=== PATIENT | male | born 1975 | race Caucasian/White ===

== ENCOUNTER 2024-01-22 14:46 | Emergency (ER) | payer MEDICAID, SELFPAY ==
[2024-01-22] VITALS (11 sets, daily range): BP systolic 105–120; BP diastolic 63–79; PULSE 54–66; TEMP 36.8; O2SAT 96–100; BMI 29.7
--- NOTE | 2024-01-22 14:58 | XR_ITS ---
The [address] [address] Patient Name: RICK MCBRIDE MRN: [id number] date: 1975 Sex: M Assigned Patient Location: ER Current Patient Location: ER Accession/Order Number: [id number] Exam Date: 01/22/2024 15:32 Report Date: 01/22/2024 15:54 At the request of: ERICA DA SILVA Procedure: XR chest 1V EXAM: XR chest 1V HISTORY: syncope COMPARISON: None TECHNIQUE: AP view of the chest was obtained with portable technique at 3:28 PM. FINDINGS: Heart and mediastinal contours are unremarkable in appearance. No acute infiltrate or consolidations are seen. No obvious pneumothorax. Mild blunting of the left costophrenic angle compatible with mild pleural thickening and/or small effusion. XR/XR chest 1V IMPRESSION: Mild pleural thickening and/or small pleural effusion on the left inferiorly. No obvious focal infiltrate or consolidation. Electronically authenticated by: PROSPER ROCHA Date: 01/22/2024 15:54
--- NOTE | 2024-01-22 14:58 | ECG_ITS ---
The [facility] Test Date: 2024-01-22 Pat Name: RICK MCBRIDE Department: Room: - Gender: Male [employer] In[employer]: : 1975 Requested By: [id number] Order Number: [id number] Reading MD: FREDDY RUTHERFORD Measurements Intervals Vale Rate: 57 P: 57 VT: 140 QRS: 64 QRSD: 96 T: 43 QT: 416 QTc: 409 Interpretive Statements 1100 Sinus bradycardia 9110 normal ECG No previous ECG available for comparison Electronically Signed On 01-24-2024 10:45:16 EDT by FREDDY RUTHERFORD
[2024-01-22] MEDS: ONDANSETRON 4 MG RAPDIS TABLET SL (15:15)
[2024-01-22] MEDS: 0.9 % SODIUM CHLORIDE 1,000 ML 1000 ML IV ×2 (15:16→16:18)
--- NOTE | 2024-01-22 15:17 | ED.GENADUL1 ---
HPI HPI - General Adult General Chief complaint: Seizure Time Seen by Provider: 01/22/24 14:54 Source: patient Mode of arrival: ambulance History of Present Illness HPI narrative: 48-year-old male presents here by squad. Patient states he was sitting around a table and smoking marijuana with other friends. He stood up became lightheaded and had to sit down. He denies any loss of consciousness. Witnesses stated that he had had a seizure-like activity. Patient denies any loss of bowel or bladder function. He has had no postictal event. Patient is alert and oriented. He states now he has a mild headache. He is alert and oriented. He states he does have a history of vertigo. Denies worst headache of his life sudden onset or thunderclap sensation. His vital signs are stable. Related Data Allergies Allergy/AdvReac Type Severity Reaction Status Date / Time Iodinated Contrast Media Allergy Severe Verified 01/22/24 14:51 Opioid HPI Opioid Management Most Recent Opioid Data: Ur Phencyclidine Scrn Negative (NEGATIVE) 01/22/24 17:05 Review of Systems ROS Narrative All Systems are negative except as noted/marked.All systems reviewed and otherwise negative Exam Narrative Exam Narrative: Nurses note and vital signs reviewed and patient is not hypoxic. General: The patient appears well and in no apparent distress. Patient is resting comfortably on cart. Skin: Warm, dry, no pallor noted. There is no rash noted. Head: Normocephalic, atraumatic Eye: Normal conjunctiva, no drainage, EOMI. PERRL Ears, Nose, Mouth, and Throat: oral mucosa is moist. Nares patent. Mouth without vesicles. Ear canals patent. Tm's without Erythema Cardiovascular: Regular Rate and Rhythm Respiratory: Patient is in no distress, no accessory muscle use, lungs are clear to auscultation, no wheezing, rales or rhonchi Back: non-tender, no CVA tenderness bilaterally to percussion. GI: Normal bowel sounds, no tenderness to palpation, no masses appreciated. No rebound, guarding, or rigidity noted. Musculoskeletal: The patient has no evidence of calf tenderness, no pitting edema, symmetrical pulses noted bilaterally Neurological: A&O x4, normal speech Psychiatric: Cooperative Constitutional Vital Signs, click to edit/add: Last Vital Signs Temp 98.2 F 05/03/24 14:46 Pulse 54 L 01/22/24 17:30 Resp 16 01/22/24 17:30 BP 108/78 01/22/24 16:30 Pulse Ox 99 01/22/24 17:30 O2 Del Method Room Air 01/22/24 15:17 Course Vital Signs Vital signs: Vital Signs Temperature 98.2 F 01/22/24 14:46 Pulse Rate 61 01/22/24 14:46 Respiratory Rate 16 01/22/24 14:46 Blood Pressure 116/75 01/22/24 14:46 Pulse Oximetry 99 01/22/24 14:46 Oxygen Delivery Method Room Air 01/22/24 14:46 Temperature 98.2 F 01/22/24 14:46 Pulse Rate 54 L 01/22/24 17:30 Respiratory Rate 16 01/22/24 17:30 Blood Pressure 108/78 01/22/24 16:30 Pulse Oximetry 99 01/22/24 17:30 Oxygen Delivery Method Room Air 01/22/24 15:17 Medical Decision Making MDM Narrative Medical decision making narrative: Patient had presented here by jackelin with a chief complaint of possible seizure-like activity. Upon arrival to the emergency room IV was established. CBC BMP and urinalysis were obtained. Lab work is reviewed patient has a low sodium of 119. He denies a known history of hyponatremia. He takes no medications on a daily basis. He states he smokes marijuana daily. 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 He is here visiting with family and friends. No seizure-like activity here in the emergency room. He had a mild headache given Tylenol. Patient is been given 2 L of IV fluids. He is requesting to be signed out AGAINST MEDICAL ADVICE. Myself as well as supervising physician Dr. Kyle explained to him the dangers of signing out including . Patient verbalizes understanding. Differential Diagnosis Differential Diagnosis: syncopal Event, dizziness, vertigo Medical Records Medical records reviewed: Yes I reviewed the patient's medical records Lab Data Lab results reviewed: Yes I reviewed the patient's lab results Labs: Lab Results 01/22/24 01/22/24 Range/Units 15:38 17:05 WBC 7.2 (4.0-11.0) 10^3/uL RBC 4.16 L (4.70-6.10) 10^6/uL Hgb 12.4 L (14.0-18.0) g/dL Hct 37.6 L (42.0-54.0) % MCV 90.4 (80.0-94.0) fL MCH 29.8 (25.9-34.0) pg MCHC 33.0 (29.9-35.2) g/dL RDW 11.8 (11.0-15.0) % Plt Count 171 (150-450) 10^3/uL MPV 10.1 (9.5-13.5) fL Neut % (Auto) 74.5 (43.0-75.0) % Lymph % (Auto) 17.0 L (20.5-60.0) % [place] % (Auto) 6.1 (1.7-12.0) % Eos % (Auto) 1.4 (0.9-7.0) % Baso % (Auto) 0.7 (0.2-2.0) % Neut # (Auto) 5.3 (1.4-6.5) 10^3/uL Lymph # (Auto) 1.2 (1.2-3.8) 10^3/uL [place] # (Auto) 0.4 (0.3-0.8) 10^3/uL Eos # (Auto) 0.1 (0.0-0.7) 10^3/uL Baso # (Auto) 0.1 (0.0-0.1) 10^3/uL Abs Immat Gran (auto) 0.02 (0.00-0.03) 10^3/uL Imm/Tot Granulo (auto) 0.3 (0.0-0.5) % PT 11.2 (9.0-11.6) sec INR 1.06 APTT 22.7 (22.3-36.2) sec Sodium 119 L* (136-145) mmol/L Potassium 3.7 (3.5-5.1) mmol/L Chloride 99 (98-107) mmol/L Carbon Dioxide 31.1 (21.0-32.0) mmol/L Anion Gap -7.4 BUN 13.0 (7.0-18.0) mg/dL Creatinine 0.82 (0.70-1.30) mg/dL Est GFR ( Amer) >60 (>=60) Est GFR (Non-Af Amer) >60 (>=60) BUN/Creatinine Ratio 15.9 Glucose 103 (74-106) mg/dL Calcium 8.5 (8.5-10.1) mg/dL Total Bilirubin 0.5 (0.2-1.0) mg/dL AST 24 (15-37) U/L ALT 20 (16-63) U/L Alkaline Phosphatase 49 (46-116) U/L Troponin I High Sens <4.0 L (4.0-76.1) pg/mL NT-Pro-B Natriuret Pep 50.0 (<=900.0) pg/mL Total Protein 6.0 L (6.4-8.2) g/dL Albumin 3.2 L (3.4-5.0) g/dL Globulin 2.8 g/dL Albumin/Globulin Ratio 1.1 Urine Color Yellow (YELLOW) Urine Clarity Clear (CLEAR) Urine pH 7.0 (5.0-9.0) Ur Specific [place] 1.020 (1.005-1.025) Urine Protein Trace (NEG/TRACE) mg/dL Urine Glucose (UA) Negative (NEGATIVE) mg/dL Urine Ketones Negative (NEGATIVE) mg/dL Urine Occult Blood Negative (NEGATIVE) Urine Nitrite Negative (NEGATIVE) Urine Bilirubin Negative (NEGATIVE) Urine Urobilinogen 1.0 (0.2-1.0) EU/dL Ur Leukocyte Esterase Negative (NEGATIVE) Urine RBC 0-2 (0-2) #/HPF Urine WBC None seen (NONE SEEN) #/HPF Ur Squamous Epith Cells Rare (NONE/RARE) #/LPF Urine Crystals None seen (None Seen) #/HPF Urine Bacteria Trace A (NONE SEEN) #/HPF Urine Casts None seen (NONE SEEN) #/LPF Urine Mucus Moderate A (NONE SEEN) Urine Opiates Screen Negative (NEGATIVE) Ur Buprenorphine Scrn Negative (NEGATIVE) Ur Oxycodone Screen Negative (NEGATIVE) Urine Methadone Screen Negative (NEGATIVE) Ur Barbiturates Screen Negative (NEGATIVE) U Tricyclic Antidepress Negative (NEGATIVE) Ur Phencyclidine Scrn Negative (NEGATIVE) Ur Amphetamines Screen Negative (NEGATIVE) U Methamphetamines Scrn Negative (NEGATIVE) U Benzodiazepines Scrn Negative (NEGATIVE) Urine Cocaine Screen Negative (NEGATIVE) U Cannabinoids Screen Positive A (NEGATIVE) Imaging Data Chest x-ray: Radiologist's impression: ITS Impressions Chest X-Ray 01/22/24 14:58 IMPRESSION: Mild pleural thickening and/or small pleural effusion on the left inferiorly. No obvious focal infiltrate or consolidation. Electronically authenticated by: PROSPER ROCHA Date: 01/22/2024 15:[address] 01/22/24 16:58 IMPRESSION: No acute intracranial findings. Electronically authenticated by: STU DRAKE Date: 01/22/2024 17:39 CT scan - head: Radiologist's impression: ITS Impressions Chest X-Ray 01/22/24 14:58 IMPRESSION: Mild pleural thickening and/or small pleural effusion on the left inferiorly. No obvious focal infiltrate or consolidation. Electronically authenticated by: PROSPER ROCHA Date: 01/22/2024 15:[address] 01/22/24 16:58 IMPRESSION: No acute intracranial findings. Electronically authenticated by: STU DRAKE Date: 01/22/2024 17:39 ECG Data Interpretation: 1512 EKG shows sinus bradycardia with a rate of 57 bpm DC interval 140 ms QRS duration [address] elevation or depression no STEMI Discharge Plan Discharge Stand Alone Forms: Portal Instructions Chief Complaint: Seizure Clinical Impression: Seizure-like activity, Acute hyponatremia Patient Disposition: Left Against Medical Advice Time of Disposition Decision: 17:45 Condition: Fair Print Language: [place] Instructions: Hyponatremia (ED), Near Syncope (ED) Referrals: Physician,Non-Staff, MD [Primary Care Provider] - 1 week
[2024-01-22 15:43] LABS: Basophils Absolute Auto 0.1 10^3/uL (0.0-0.1); Basophils Percent Auto 0.7 % (0.2-2.0); Eosinophils Absolute Auto 0.1 10^3/uL (0.0-0.7); Eosinophils Percent Auto 1.4 % (0.9-7.0); Hematocrit 37.6 % (42.0-54.0); Hemoglobin 12.4 g/dL (14.0-18.0); Immature Granulocytes Abs Auto 0.02 10^3/uL (0.00-0.03); Immature Granulocytes Pct Auto 0.3 % (0.0-0.5); Lymphocytes Absolute Auto 1.2 10^3/uL (1.2-3.8); Mean Corpuscular Hemoglobin 29.8 pg (25.9-34.0); Mean Corpuscular Volume 90.4 fL (80.0-94.0); Mean Platelet Volume 10.1 fL (9.5-13.5); Monocytes Absolute Auto 0.4 10^3/uL (0.3-0.8); Monocytes Percent Auto 6.1 % (1.7-12.0); Neutrophils Absolute Auto 5.3 10^3/uL (1.4-6.5); Neutrophils Percent Auto 74.5 % (43.0-75.0); Platelet Count 171 10^3/uL (150-450); Red Blood Count 4.16 10^6/uL (4.70-6.10); Red Cell Distribution Width 11.8 % (11.0-15.0); White Blood Count 7.2 10^3/uL (4.0-11.0)
[2024-01-22 16:00] LABS: INR 1.06; Partial Thromboplastin Time 22.7 sec (22.3-36.2); Prothrombin Time 11.2 sec (9.0-11.6)
[2024-01-22 16:08] LABS: Alanine Aminotransferase 20 U/L (16-63); Albumin Globulin Ratio 1.1; Albumin Level 3.2 g/dL (3.4-5.0); Alkaline Phosphatase 49 U/L (46-116); Anion Gap -7.4; Aspartate Amino Transferase 24 U/L (15-37); BUN Creatinine Ratio 15.9; Bilirubin Total 0.5 mg/dL (0.2-1.0); Calcium 8.5 mg/dL (8.5-10.1); Carbon Dioxide 31.1 mmol/L (21.0-32.0); Chloride 99 mmol/L (98-107); Estimated GFR (African America >60 (>=60); Estimated GFR (Non-African Ame >60 (>=60); Globulin 2.8 g/dL; Glucose 103 mg/dL (74-106); Potassium 3.7 mmol/L (3.5-5.1); Troponin I High Sensitivity <4.0 pg/mL (4.0-76.1)
[2024-01-22 16:13] LABS: Sodium 119 mmol/L (136-145)
[2024-01-22] MEDS: ACETAMINOPHEN 500 MG TABLET 1000 MG PO (16:21)
--- NOTE | 2024-01-22 16:58 | CT_ITS ---
The [address] [address] Patient Name: RICK MCBRIDE MRN: [id number] date: 1975 Sex: M Assigned Patient Location: ER Current Patient Location: ED.MAIN Accession/Order Number: [id number] Exam Date: 01/22/2024 16:53 Report Date: 01/22/2024 17:39 At the request of: ERICA DA SILVA Procedure: CT head/brain wo con EXAM: CT head/brain wo con HISTORY: seizure r/o COMPARISON: None. TECHNIQUE: CT head without contrast. Multiplanar reformats obtained. The current study utilizes one or more of the following dose-reduction techniques: automated exposure control, iterative reconstruction, and/or manual adjustment of tube current and voltage for size.. FINDINGS: No acute intracranial hemorrhage. No midline shift. Myers-white matter differentiation maintained. Basal cisterns patent. Ventricles reflect volume loss. No displaced skull fracture. Partially imaged mastoid air cells are clear. Partially imaged paranasal sinuses are clear. CT/CT head/brain wo con IMPRESSION: No acute intracranial findings. Electronically authenticated by: STU DRAKE Date: 01/22/2024 17:39
[2024-01-22 17:11] LABS: Bilirubin Urine NEGATIVE (NEGATIVE); Blood Urine NEGATIVE (NEGATIVE); Clarity Urine CLEAR (CLEAR); Color Urine YELLOW (YELLOW); Glucose Urine UA NEGATIVE (NEGATIVE); Ketones Urine NEGATIVE (NEGATIVE); Leukocyte Esterase Urine NEGATIVE (NEGATIVE); Nitrite Urine NEGATIVE (NEGATIVE); Protein Urine TRACE mg/dL (NEG/TRACE)
[2024-01-22 17:21] LABS: Amphetamine Screen Urine NEGATIVE (NEGATIVE); Barbiturates Screen Urine NEGATIVE (NEGATIVE); Benzodiazepines Screen Urine NEGATIVE (NEGATIVE); Buprenorphine Screen Urine NEGATIVE (NEGATIVE); Cannabinoid Screen Urine POSITIVE (NEGATIVE); Cocaine Screen Urine NEGATIVE (NEGATIVE); Methadone Screen Urine NEGATIVE (NEGATIVE); Methamphetamines Screen Urine NEGATIVE (NEGATIVE); Opiate Screen Urine NEGATIVE (NEGATIVE); Oxycodone Screen Urine NEGATIVE (NEGATIVE); Phencyclidine Screen Urine NEGATIVE (NEGATIVE); Tricyclic Antidepressant Urine NEGATIVE (NEGATIVE)
[2024-01-22 17:25] LABS: Bacteria Urine TRACE #/HPF (NONE SEEN); Cast Seen? NONE SEEN #/LPF (NONE SEEN); Crystals Seen? None Seen #/HPF (None Seen); Mucus Urine MODERATE (NONE SEEN); RBC Urine 0-2 #/HPF (0-2); Squamous Epithelial Cell Urine RARE #/LPF (NONE/RARE); WBC Urine NONE SEEN #/HPF (NONE SEEN)
== END 2024-01-22 18:05 | disposition left against medical advice (07) ==
PROVIDERS: Physician Assistant; Emergency Provider Student in an Organized Health Care Education/Training Program
DX: R56.9 Unspecified convulsions (principal); E87.1 Hypo-osmolality and hyponatremia; Z53.29 Procedure and treatment not carried out because of patient's decision for other reasons
CPT/HCPCS: 36415; 70450; 71045; 80053; 80307; 81001; 83880; 84484; 85025; 85610; 85730; 93005; 99285

== ENCOUNTER 2024-02-05 08:43 | Outpatient (OUT) | payer MEDICAID, SELFPAY ==
--- NOTE | 2024-02-05 08:53 | CT_ITS ---
[address] [address] Patient Name: RICK MCBRIDE MRN: [id number] date: 1975 Sex: M Assigned Patient Location: CT Current Patient Location: CT Accession/Order Number: [id number] Exam Date: 02/05/2024 09:07 Report Date: 02/05/2024 12:33 At the request of: SILAS LIMON Procedure: CT lung screening low-dose EXAMINATION: CT lung screening low-dose HISTORY: History Of Smoking Z87.891 COMPARISON: No relevant comparison available. TECHNIQUE: Axial, Coronal, and Sagittal images were created without the administration of IV contrast material. Dose reduction techniques were achieved by using automated exposure control and/or adjustment of mA and/or kV according to patient size and/or use of iterative reconstruction technique. FINDINGS: LUNGS: Scattered punctate pulmonary nodules the largest in the right upper lobe measures 4 mm, axial image #87. No bronchiectasis or peribronchial thickening PLEURA: No mass, effusion, or pneumothorax. VASCULATURE: No abnormality. GIOVANNI: No mass or pathologic adenopathy. MEDIASTINUM: No mass or pathologic adenopathy. CARDIAC: No enlargement, pericardial thickening, or significant calcification. CORONARY ARTERIES: Coronary calcifications are mild. AORTA: No aneurysm or dissection. CHEST WALL: No mass or axillary adenopathy BONES: No bone lesion or fracture. Remote healed right rib fractures LIMITED ABDOMEN: No suspicious findings. Limited images of the upper abdomen. OTHER: Negative. CT/CT lung screening low-dose IMPRESSION: LUNG SCREENING: Lung-RADS Category 2- Benign Appearance or Behavior. Nodules with a very low likelihood of becoming a clinically active cancer due to size or lack of growth. 2. Continue annual screening with LDCT in 12 months. Electronically authenticated by: LESTER HERR Date: 02/05/2024 12:33
== END 2024-02-05 08:44 | disposition home or self-care (01) ==
LOC: CT 08:44
PROVIDERS: Visit Provider Family Medicine
DX: Z87.891 Personal history of nicotine dependence (principal); R91.8 Other nonspecific abnormal finding of lung field
CPT/HCPCS: 71271

== ENCOUNTER 2024-09-03 09:29 | Outpatient (OUT) | payer OTHER, SELFPAY ==
--- OUTSIDE RECORDS SUMMARY | 2024-09-03 09:33 | XMS_ITS | CCD ---
Author Organization [facility] Care Team Providers Care Exhibits Curator Name Role Phone DALJIT LEON Attending Unavailable ISTEPHAN, DALJIT A Referring Unavailable ISTEPHAN, DALJIT A Primary Care Unavailable ISTEPHAN, DALJIT A Attending Unavailable ISTEPHAN, DALJIT A Referring Unavailable ISTEPHAN, DALJIT A Primary Care Unavailable ISTEPHAN, DALJIT A Attending Unavailable ISTEPHAN, DALJIT A Referring Unavailable ISTEPHAN, DALJIT A Primary Care Unavailable ISTEPHAN, DALJIT A Primary Care Unavailable CHEL SAMUEL Attending Unavailable NITA MEZA Consulting Unavailable SILAS LIMON Attending Unavailable NO PCP, NO PCP Primary Care Unavailable JANET GARCIA Attending Unavailable JANET GARCIA Attending Unavailable JANET GARCIA Referring Unavailable NO PCP, NO PCP Primary Care Unavailable NO PCP, NO PCP Primary Care Unavailable Allergies Allergy Classification Reported Allergen(s) Allergy Type Date of Onset Reaction(s) Facility (3 sources) IODINATED CONTRAST MEDIA; Translations: [IODINATED CONTRAST MEDIA] Propensity to adverse reactions to drug (disorder) 3 [facility] (3 sources) GADOLINIUM-CONTA INING CONTRAST MEDIA; Translations: [GADOLINIUM-CONT AINING CONTRAST MEDIA] Propensity to adverse reactions to drug (disorder) 3 [facility] Problems Active Problems Problem Classification Problem Date Documented Da te Episodic/Chronic Alcohol-related disorders (1 source) Alcohol use, unspecified with intoxication, uncomplicated; Translations: [Alcohol use, unspecified with intoxication, uncomplicated] Onset: 10-12-2023 Episodic Anxiety disorders (1 source) Mental health problem Onset: 10-12-2023 Chronic Mood disorders (2 sources) Major depressive disorder, single episode, severe without psychotic features; Translations: [Depression] Onset: 09-02-2023 Chronic Other gastrointestinal disorders (1 source) Diarrhea Onset: 10-09-2023 Episodic Other gastrointestinal disorders (1 source) Diarrhea, unspecified; Translations: [Diarrhea, unspecified] Onset: 09-11-2023 Episodic Residual codes; unclassified (2 sources) Other amnesia; Translations: [Other amnesia] Onset: 09-02-2023 Episodic Screening and history of mental health and substance abuse codes (1 source) Personal history of other mental and behavioral disorders; Translations: [Personal history of other mental and behavioral disorders] Onset: 10-12-2023 Episodic Sprains and strains (1 source) Unspecified sprain of left foot, initial encounter; Translations: [Unspecified sprain of left foot, initial encounter] Onset: 08-15-2024 Episodic Unclassified (1 source) Med Refill Onset: 09-11-2023 Unclassified (1 source) Foot Injury Onset: 08-15-2024 Past or Other Problems Problem Classification Problem Date Documented Da te Episodic/Chronic Open wounds of extremities (2 sources) Laceration without foreign body of left middle finger without damage to nail, initial encounter; Translations: [Laceration of finger] Onset: 02-10-2024 Episodic Other injuries and conditions due to external causes (1 source) Laceration - injury Onset: 02-10-2024 Episodic Results Test Name Value Interpretation Reference Range Facility XR ANKLE RT MIN 3 VWSon 07-23 XR ANKLE RT MIN 3 VWS XR ANKLE RT MIN 3 VWS HISTORY: A 48-year-old male with the history of the fall and complaining of the right ankle and foot pain. TECHNIQUE: Right ankle: 3 views COMPARISON: No relevant prior studies are available for comparison. FINDINGS: There is no evidence of fracture or acute bony pathology. Ankle mortise is intact. Subtalar joints are intact. There is soft tissue swelling overlying the lateral malleolus. There is a calcaneal enthesophyte. IMPRESSION: * Mild soft tissue swelling overlying the lateral malleolus but no evidence of fracture or acute bony pathology. Finalized by Héctor Mcgee MD on 08/15/2024 3:09 PM [facility] XR FOOT RT MIN 3 VWSon 08-15 XR FOOT RT MIN 3 VWS XR FOOT RT MIN 3 VW S HISTORY: A 48-year-old male with the history of the twisting injury to the right ankle and foot. Complaining of the pain. TECHNIQUE: Right foot: 3 views COMPARISON: Comparison is made with the right ankle radiographs performed on the same day. FINDINGS: There is no evidence of fracture, dislocation or acute bony pathology. Bones and joints are intact. No significant soft tissue abnormality seen. IMPRESSION: * No evidence of fracture or acute bony pathology in the right foot. Finalized by Héctor Mcgee MD on 08/15/2024 3:10 PM Normal [facility] ACETAMINOPHENon 10-12-2023 Acetaminophen [Mass/Vol] ug/mL Low 10.0-30.0 [facility] Comment on above: Result Comment: Refe rence ranges are for therapeutic limits. Performed By: #### C BCA, CMP, 86427-6, 3298-7, 4024-6, 5643-2, THYR #### [facility] ([id number]) [address] [place] [address] CBC AND AUTO DIFFon 10-12-19 ABSOLUTE BASOPHIL 0.1 X10E9/L Normal 0.0-0.2 [facility] Comment on above: Performed By: #### C BCA, CMP, 06988-6, 3298-7, 4024-6, 5643-2, THYR #### [facility] ([id number]) [address] [place] [address] ABSOLUTE NEUTROPHIL 9.5 X10E9/L High 1.5-6.6 [facility] Comment on above: Performed By: #### C BCA, CMP, 22260-7, 3298-7, 4024-6, 5643-2, THYR #### [facility] ([id number]) [address] [place] [address] Basophils/100 WBC (Bld) 0.6 % Normal [facility] Comment on above: Performed By: #### C BCA, CMP, 17988-9, 3298-7, 4024-6, 5643-2, THYR #### [facility] ([id number]) [address] [place] [address]22 Eosinophils (Bld) [#/Vol] 0.2 10*3/uL Normal 0.0-0.4 [facility] Comment on above: Performed By: #### C BCA, CMP, 04818-1, 3298-7, 4024-6, 5643-2, THYR #### [facility] ([id number]) [address] [place] [address] 76193 Eosinophils/100 WBC (Bld) 1.3 % Normal [facility] Comment on above: Performed By: #### C BCA, CMP, 65298-2, 3298-7, 4024-6, 5643-2, THYR #### [facility] ([id number]) [address] [place] [address] Erythrocyte distribution width (RBC) [Ratio] 13.9 % Normal 11.5-15.0 [facility] Comment on above: Performed By: #### C BCA, CMP, 90397-0, 3298-7, 4024-6, 5643-2, THYR #### [facility] ([id number]) [address] [place] [address] 70970 Hematocrit (Bld) [Volume fraction] 42.8 % Normal 39-49 [facility] Comment on above: Performed By: #### C BCA, CMP, 11755-6, 3298-7, 4024-6, 5643-2, THYR #### [facility] ([id number]) [address] [place] [address] 19968 Hemoglobin (Bld) [Mass/Vol] 14.4 g/dL Normal 13.0-17.0 [facility] Comment on above: Performed By: #### C BCA, CMP, 48224-1, 3298-7, 4024-6, 5643-2, THYR #### [facility] ([id number]) [address] [place] [address] Lymphocytes (Bld) [#/Vol] 1.9 10*3/uL Normal 1.0-3.5 [facility] Comment on above: Performed By: #### C BCA, CMP, 21197-4, 3298-7, 4024-6, 5643-2, THYR #### [facility] ([id number]) [address] [place] [address] 94732 Lymphocytes/100 WBC (Bld) 15.4 % Normal [facility] Comment on above: Performed By: #### C BCA, CMP, 48958-9, 3298-7, 4024-6, 5643-2, THYR #### [facility] ([id number]) [address] [place] [address] 13176 MCH (RBC) [Entitic mass] 29.2 pg Normal 27-34 [facility] Comment on above: Performed By: #### C BCA, CMP, 22572-2, 3298-7, 4024-6, 5643-2, THYR #### [facility] ([id number]) [address] [place] [address] 06080 MCHC (RBC) [Mass/Vol] 33.6 g/dL Normal 32-36 [facility] Comment on above: Performed By: #### C BCA, CMP, 94474-4, 3298-7, 4024-6, 5643-2, THYR #### [facility] ([id number]) [address] [place] [address] 81881 MCV (RBC) [Entitic vol] 87 fL Normal 80-100 [facility] Comment on above: Performed By: #### C BCA, CMP, 68862-9, 3298-7, 4024-6, 5643-2, THYR #### [facility] ([id number]) [address] [place] [address] 78300 Monocytes (Bld) [#/Vol] 0.5 10*3/uL Normal 0-0.9 [facility] Comment on above: Performed By: #### C BCA, CMP, 53873-4, 3298-7, 4024-6, 5643-2, THYR #### [facility] ([id number]) [address] [place] [address]85 Monocytes/100 WBC (Bld) 4.4 % Normal [facility] Comment on above: Performed By: #### C BCA, CMP, 27346-0, 3298-7, 4024-6, 5643-2, THYR #### [facility] ([id number]) [address] [place] [address] 31807 Neutrophils/100 WBC (Bld) 78.3 % Normal [facility] Comment on above: Performed By: #### C BCA, CMP, 38534-3, 3298-7, 4024-6, 5643-2, THYR #### [facility] ([id number]) [address] [place] [address] 85784 Platelet mean volume (Bld) [Entitic vol] 7.8 fL Normal 7-12 [facility] Comment on above: Performed By: #### C BCA, CMP, 69132-9, 3298-7, 4024-6, 5643-2, THYR #### [facility] ([id number]) [address] [place] [address] 16088 Platelets (Bld) [#/Vol] 233 10*3/uL Normal 150-450 [facility] Comment on above: Performed By: #### C BCA, CMP, 24089-8, 3298-7, 4024-6, 5643-2, THYR #### [facility] ([id number]) [address] [place] [address] RBC COUNT 4.93 X10E12/L Normal 4.10-5.70 [facility] Comment on above: Performed By: #### C BCA, CMP, 09400-5, 3298-7, 4024-6, 5643-2, THYR #### [facility] ([id number]) [address] [place] [address] 96676 WBC (Bld) [#/Vol] 12.1 10*3/uL High 4.0-11.0 [facility] Comment on above: Performed By: #### C BCA, CMP, 99409-9, 3298-7, 4024-6, 5643-2, THYR #### [facility] ([id number]) [address] [place] [address] COMPREHENSIVE METABOLIC PANE Romero 10-12-2023 Albumin [Mass/Vol] 3.5 g/dL Normal 3.2-5.3 [facility] Comment on above: Performed By: #### C BCA, CMP, 58708-5, 3298-7, 4024-6, 5643-2, THYR #### [facility] ([id number]) [address] [place] [address] 31858 ALP [Catalytic activity/Vol] 39 U/L Normal 39-130 [facility] Comment on above: Performed By: #### C BCA, CMP, 35639-1, 3298-7, 4024-6, 5643-2, THYR #### [facility] ([id number]) [address] [place] [address] 34271 ALT [Catalytic activity/Vol] 13 U/L Normal 0-40 [facility] Comment on above: Performed By: #### C BCA, CMP, 46023-5, 3298-7, 4024-6, 5643-2, THYR #### [facility] ([id number]) [address] [place] [address] 58698 Anion gap [Moles/Vol] 8 mmol/L Normal 5-15 [facility] Comment on above: Performed By: #### C BCA, CMP, 93038-2, 3298-7, 4024-6, 5643-2, THYR #### [facility] ([id number]) [address] [place] [address] 98997 AST [Catalytic activity/Vol] 21 U/L Normal 0-41 [facility] Comment on above: Performed By: #### C BCA, CMP, 84481-7, 3298-7, 4024-6, 5643-2, THYR #### [facility] ([id number]) [address] [place] [address] 60573 Bilirubin [Mass/Vol] 0.4 mg/dL Normal 0.3-1.2 [facility] Comment on above: Performed By: #### C BCA, CMP, 29371-2, 3298-7, 4024-6, 5643-2, THYR #### [facility] ([id number]) [address] [place] [address] 24252 Calcium [Mass/Vol] 8.1 mg/dL Low 8.5-10.5 [facility] Comment on above: Performed By: #### C BCA, CMP, 60655-4, 3298-7, 4024-6, 5643-2, THYR #### [facility] ([id number]) [address] [place] [address] 59913 Chloride [Moles/Vol] 111 mmol/L High 98-109 [facility] Comment on above: Performed By: #### C BCA, CMP, 72658-3, 3298-7, 4024-6, 5643-2, THYR #### [facility] ([id number]) [address] [place] [address] 26111 CO2 [Moles/Vol] 25 mmol/L Normal 22-32 [facility] Comment on above: Performed By: #### C BCA, CMP, 26700-2, 3298-7, 4024-6, 5643-2, THYR #### [facility] ([id number]) [address] [place] [address] Creatinine [Mass/Vol] 0.62 mg/dL Normal 0.60-1.30 [facility] Comment on above: Result Comment: METH OD TRACEABLE TO IDMS STANDARD Performed By: #### C BCA, CMP, 60158-8, 3298-7, 4024-6, 5643-2, THYR #### [facility] ([id number]) [address] [place] [address] 13271 eGFR (CKD-EPI) NON-RACE DEPENDENT >90 Normal >59 [facility] Comment on above: Result Comment: Reported eGFR is based on the CKD-EPI 2020 equation that does not use a race coefficient. Performed By: #### C BCA, CMP, 40838-3, 3298-7, 4024-6, 5643-2, THYR #### [facility] ([id number]) [address] [place] [address] 13526 Glucose [Mass/Vol] 84 mg/dL Normal 65-99 [facility] Comment on above: Performed By: #### C BCA, CMP, 12064-8, 3298-7, 4024-6, 5643-2, THYR #### [facility] ([id number]) [address] [place] [address] 23194 Potassium [Moles/Vol] 3.8 mmol/L Normal 3.5-5.0 [facility] Comment on above: Performed By: #### C BCA, CMP, 57318-3, 3298-7, 4024-6, 5643-2, THYR #### [facility] ([id number]) [address] [place] [address] 84925 Protein [Mass/Vol] 5.5 g/dL Low 6.0-8.0 [facility] Comment on above: Performed By: #### C BCA, CMP, 01093-2, 3298-7, 4024-6, 5643-2, THYR #### [facility] ([id number]) [address] [place] [address] Sodium [Moles/Vol] 144 mmol/L Normal 134-146 [facility] Comment on above: Performed By: #### C BCA, CMP, 48535-7, 3298-7, 4024-6, 5643-2, THYR #### [facility] ([id number]) [address] [place] [address] Urea nitrogen [Mass/Vol] 11 mg/dL Normal - [facility] Comment on above: Performed By: #### C BCA, CMP, 14845-8, 3298-7, 4024-6, 5643-2, THYR #### [facility] ([id number]) [address] [place] [address] 44619 DRUG SCREEN, URINEon 024 AMPHETAMINE/METHAMP Negative Normal NEG [facility] Comment on above: Result Comment: AMPH /METH screening cut off = 1000 ng/mL Performed By: #### D NASH #### [facility] ([id number]) [address] [place] [address] BARBITURATES Negative Normal NEG [facility] Comment on above: Result Comment: Deborah iturates screening cut off value = 200 ng/mL Performed By: #### D NASH #### [facility] ([id number]) [address] [place] [address] BENZODIAZEPINES Negative Normal NEG [facility] Comment on above: Result Comment: Juan F odiazepines screening cut off value = 200 ng/mL Performed By: #### D NASH #### [facility] ([id number]) [address] [place] [address] CANNABINOIDS Positive Abnormal NEG [facility] Comment on above: Result Comment: Conf irmation available upon request. Cannabinoids/THC screening cut off value = 50 ng/mL Performed By: #### D NASH #### [facility] ([id number]) [address] [place] [address] COCAINE METABOLITE Negative Normal NEG [facility] Comment on above: Result Comment: Coca ine screening cut off value = 300 ng/mL Performed By: #### D NASH #### [facility] ([id number]) [address] [place] [address] ECSTASY Negative Normal [facility] Comment on above: Result Comment: Ecst asy screening cut off value = 500 ng/mL This report is intended for use in clinical monitoring or management of patients. Performed By: #### D NASH #### [facility] ([id number]) [address] [place] [address] METHADONE Negative Normal [facility] Comment on above: Result Comment: Meth adone screening cut off value = 300 ng/mL. Performed By: #### D NASH #### [facility] ([id number]) [address] [place] [address] OPIATES Negative Normal [facility] Comment on above: Result Comment: Opia dom screening cut off value = 300 ng/mL NOTE: This test is used for the detection of codeine, hydrocodone (>1000 ng/mL), morphine and hydromorphone (>900 ng/mL) in urine. Performed By: #### D NASH #### [facility] ([id number]) [address] [place] [address] OXYCODONE Negative Normal [facility] Comment on above: Result Comment: Oxyc odone screening cut off value = 300 ng/mL NOTE: This test is used for the detection of oxycodone and oxymorphone in urine. Performed By: #### D NASH #### [facility] ([id number]) [address] [place] [address] PHENCYCLIDINE Negative Normal NEG [facility] Comment on above: Result Comment: Phen cyclidine screening cut off value = 25 ng/mL Performed By: #### D NASH #### [facility] ([id number]) [address] [place] [address] 43102 Ethanol [Mass/Vol]on 024 ETHANOL 0.17 g/dL High 0.00-0.08 [facility] Comment on above: Result Comment: This report is intended for use in clinical monitoring or management of patients. Performed By: #### C BCA, CMP, 02047-5, 3298-7, 4024-6, 5643-2, THYR #### [facility] ([id number]) [address] [place], [place] [address] MAGNESIUMon 10-12-2023 Magnesium [Mass/Vol] 1.8 mg/dL Normal 1.8-2.6 [facility] Comment on above: Performed By: #### C BCA, CMP, 16906-9, 3298-7, 4024-6, 5643-2, THYR #### [facility] ([id number]) [address] [place] [address] 12401 Salicylates [Mass/Vol]on SALICYLATE <2.5 Normal 2.0-25.0 [facility] Comment on above: Result Comment: Refe rence ranges are for therapeutic limits. Performed By: #### C BCA, CMP, 81772-5, 3298-7, 4024-6, 5643-2, THYR #### [facility] ([id number]) [address] [place] [address] 87069 THYROID PROFILEon 10-12-2023 Free T4 [Mass/Vol] 0.97 ng/dL Normal 0.61-1.60 [facility] Comment on above: Performed By: #### C BCA, CMP, 79954-2, 3298-7, 4024-6, 5643-2, THYR #### [facility] ([id number]) [address] [place] [address] TSH 1.12 uIU/mL Normal 0.49-4.67 [facility] Comment on above: Performed By: #### C BCA, CMP, 56114-0, 3298-7, 4024-6, 5643-2, THYR #### [facility] ([id number]) [address] [place] [address] URINALYSISon 10-12-2023 Bilirubin Ql (U) Negative Normal NEG [facility] Comment on above: Performed By: #### U A #### [facility] ([id number]) [address] [place] [address] 34526 BLOOD/HGB Negative Normal NEG [facility] Comment on above: Performed By: #### U A #### [facility] ([id number]) [address] [place] [address] 79782 Color (U) YELLOW Normal YELLOW [facility] Comment on above: Performed By: #### U A #### [facility] ([id number]) [address] [place] [address] 13325 Glucose Ql (U) Negative Normal NEG [facility] Comment on above: Performed By: #### U A #### [facility] ([id number]) [address] [place] [address] 12185 Ketones Ql (U) Trace Abnormal NEG [facility] Comment on above: Performed By: #### U A #### [facility] ([id number]) [address] [place] [address] 28997 Leukocyte esterase Test strip Ql (U) Negative Normal NEG [facility] Comment on above: Performed By: #### U A #### [facility] ([id number]) [address] [place] [address] 87313 Nitrite Ql (U) Negative Normal NEG [facility] Comment on above: Performed By: #### U A #### [facility] ([id number]) [address] [place] [address] pH (U) 7.0 [pH] Normal 5.0-8.5 [facility] Comment on above: Performed By: #### U A #### [facility] ([id number]) [address] [place] [address] 19125 Protein Ql (U) Negative Normal NEG [facility] Comment on above: Performed By: #### U A #### [facility] ([id number]) [address] [place] [address] 49026 Specific gravity (U) [Rel density] 1.010 Normal 1.003-1.035 [facility] Comment on above: Performed By: #### U A #### [facility] ([id number]) [address] [place] [address] TURBIDITY CLEAR Normal CLEAR [facility] Comment on above: Performed By: #### U A #### [facility] ([id number]) [address] [place] [address] 11865 Urobilinogen Qn (U) 0.2 {Violet'U}/dL Normal <1.1 [facility] Comment on above: Performed By: #### U A #### [facility] ([id number]) [address] [place] [address] 76609 MR BRAIN WO CONTon MR BRAIN WO CONT MR BRAIN WO CONT HISTORY: A 48-year-old male with the history of the memory loss. TECHNIQUE: Multiplanar and multisequence MRI examination of brain is performed without intravenous contrast administration. COMPARISON: Comparison is made with the CT scan of the brain of 10/07/2021. FINDINGS: The ventricular system is normal in size and configuration. There is normal differentiation of jasmine and white matters. Diffusion-weighted study demonstrates no evidence of restricted diffusion to suggest acute or subacute age of infarction. There is no evidence of intracranial mass, hemorrhage or acute pathology. The cerebellum and brainstem are unremarkable. No mass effect, midline shift of the structures or extra-axial fluid collections are noted. The cavernous carotid and and basilar arteries are patent. There is a polypoidal mucosal thickening of the right maxillary sinus. Other paranasal sinuses and mastoid air cells are clear. IMPRESSION: 1. No evidence of intracranial mass, focal signal abnormality or acute pathology. 2. Polypoidal mucosal thickening in the right maxillary sinus. Finalized by Héctor Mcgee MD on 09/22/2023 7:55 PM Normal [facility] Encounters Encounter Date Encounter Type Care Provider Facility Start: 08-15-2024 End: 08-15-2024 Emergency department patient visit NO PCP NO PCP [facility] Start: 02-10-2024 End: 02-10-2024 Emergency department patient visit NO PCP NO PCP [facility] Start: 02-10-2024 End: 02-10-2024 Emergency department patient visit JANET GARCIA [facility] Start: 01-29-2024 End: 01-29-2024 ambulatory RONDAAMI LIMON Not Available Start: 10-12-2023 End: 10-13-2023 Emergency department patient visit [facility] Start: 10-09-2023 End: 10-09-[address] [facility] Start: 09-22-2023 End: 09-23-2023 ambulatory [facility] Start: 09-11-2023 End: 09-11-[address] [facility] Payers Date Payer Category Payer Private Health Insurance [id number] 2024 Medicaid [id number] 2024 Worker's Compensation [id number] 2022 Medicaid [id number] 2021 Unknown [id number] 1973 Unknown [id number] 2.16.84 [id number] 1973 Unknown [id number] 2.16.84 [id number] 1973 Unknown [id number] 2.16.84 [id number] 1973 Unknown [id number] 2.16.84 [id number] 1973 Unknown [id number] 2.16.84 [id number] 1973 Unknown [id number] 2.16.8 [id number] 1973 Unknown [id number] 2.16.8 [id number] 1973 Unknown [id number] 2.16.8 [id number] Summary Purpose Family History No Family History Records FoundNo Family History Records FoundNo Family History Records FoundNo Family History Records Found Advance Directives No Advanced Directives Records FoundNo Advanced Directives Records FoundNo Advanced Directives Records FoundNo Advanced Directives Records Found Additional Source Comments (unrecognized sect ion and content) No Status Records FoundNo Status Records FoundNo Status Records FoundNo Status Records Found INFORMATION SOURCE (unrecogn ized section and content) DATE CREATED AUTHOR 10/11/2023 [facility] DATE CREATED AUTHOR AUTHOR'S ORGANIZ ATION 10/16/2023 [facility] DATE CREATED AUTHOR AUTHOR'S ORGANIZ ATION 01/31/2024 [facility] DATE CREATED AUTHOR AUTHOR'S ORGANIZ ATION 08/18/2024 [facility] FOR RECORDS PERTAINING TO PATIENTS WHO ARE OR HAVE BEEN ENROLLED IN A CHEMICAL DEPENDENCY/SUBSTANCEABUSE PROGRAM, SOME INFORMATION MAY BE OMITTED. This clinical summary was aggregated from multiple sources. Caution should be exercised in using it in the provision of clinical care. This summary normalizes information from multiple sources, and as a consequence, information in this document may materially change the coding, format and clinical context of patient data. In addition, data may be omitted in some cases. CLINICAL DECISIONS SHOULD BE BASED ON THE PRIMARY CLINICAL RECORDS. [facility] [employer] [facility]. provides no warranty or guarantee of the accuracy or completeness of information in this document.
[2024-09-03 10:00] LABS: Basophils Absolute Auto 0.1 10^3/uL (0.0-0.1); Basophils Percent Auto 0.6 % (0.2-2.0); Eosinophils Absolute Auto 0.2 10^3/uL (0.0-0.7); Eosinophils Percent Auto 1.9 % (0.9-7.0); Hematocrit 41.7 % (42.0-54.0); Hemoglobin 13.8 g/dL (14.0-18.0); Immature Granulocytes Abs Auto 0.03 10^3/uL (0.00-0.03); Immature Granulocytes Pct Auto 0.4 % (0.0-0.5); Lymphocytes Percent Auto 23.6 % (20.5-60.0); Mean Corpuscular HGB Conc 33.1 g/dL (29.9-35.2); Mean Corpuscular Hemoglobin 29.4 pg (25.9-34.0); Mean Corpuscular Volume 88.9 fL (80.0-94.0); Mean Platelet Volume 10.7 fL (9.5-13.5); Monocytes Absolute Auto 0.6 10^3/uL (0.3-0.8); Monocytes Percent Auto 7.4 % (1.7-12.0); Neutrophils Absolute Auto 5.5 10^3/uL (1.4-6.5); Neutrophils Percent Auto 66.1 % (43.0-75.0); Platelet Count 220 10^3/uL (150-450); Red Blood Count 4.69 10^6/uL (4.70-6.10); Red Cell Distribution Width 12.2 % (11.0-15.0); White Blood Count 8.3 10^3/uL (4.0-11.0)
[2024-09-03 10:10] LABS: Estimated Average Glucose 105 mg/dL; Glycohemoglobin A1C 5.3 % (4.5-6.2)
[2024-09-03 10:21] LABS: Percent Iron Saturation 35.8 %
[2024-09-03 10:36] LABS: Alanine Aminotransferase 27 U/L (16-63); Albumin Globulin Ratio 1.2; Albumin Level 3.6 g/dL (3.4-5.0); Alkaline Phosphatase 51 U/L (46-116); Anion Gap 9.8; Aspartate Amino Transferase 17 U/L (15-37); BUN Creatinine Ratio 13.8; Bilirubin Total 0.6 mg/dL (0.2-1.0); Calcium 8.8 mg/dL (8.5-10.1); Carbon Dioxide 29.1 mmol/L (21.0-32.0); Chloride 106 mmol/L (98-107); Chol HDL Ratio 3.9; Cholesterol 177 mg/dL (<=200); Estimated GFR (African America >60 (>=60 mL/min/1.73m^2); Estimated GFR (Non-African Ame >60 (>=60 mL/min/1.73m^2); Globulin 3.1 g/dL; Glucose 96 mg/dL (74-106); HDL Cholesterol 45 mg/dL (40-60); LDL Cholesterol Calculated 118.6 mg/dL; Potassium 3.9 mmol/L (3.5-5.1); Sodium 141 mmol/L (136-145); TSH W/ REFLEX FT4 1.034 uIU/mL (0.358-3.740); Total Protein 6.7 g/dL (6.4-8.2); Triglycerides 67 mg/dL (<=150); VLDL CHOLESTEROL 13.4 mg/dL
[2024-09-04 06:37] LABS: Vitamin B12 866 pg/mL (232-1245)
[2024-09-04 08:07] LABS: Transferrin 234 mg/dL (177-329)
== END 2024-09-03 09:30 | disposition home or self-care (01) ==
LOC: LAB 09:31
DX: Z00.00 Encounter for general adult medical examination without abnormal findings (principal); R53.82 Chronic fatigue, unspecified; R07.9 Chest pain, unspecified
CPT/HCPCS: 36415; 80053; 80061; 82306; 82607; 82728; 83036; 83540; 83550; 84443; 84466; 85025

== ENCOUNTER 2024-09-16 09:29 | Outpatient (OUT) | payer OTHER, SELFPAY ==
--- NOTE | 2024-09-16 | ECG_ITS ---
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
--- OUTSIDE RECORDS SUMMARY | 2024-09-16 09:43 | XMS_ITS | CCD ---
Author Organization [facility] Inform ion Partnership [facility] Care Team Providers Care American Indian Policy Specialist Name Role Phone DALJIT LEON Attending Unavailable [...] SAMUEL Attending Unavailable NITA MEZA Consulting Unavailable NO PCP, NO PCP Primary Care Unavailable JANET GARCIA Attending Unavailable JANET GARCIA Attending Unavailable JANET GARCIA Referring Unavailable NO PCP, NO PCP Primary Care Unavailable NO PCP, NO PCP Primary Care Unavailable Augustus PFEIFFER, Desmond Primary Care Provider Arsalan BENITEZ, Julia Unavailable [phone] SILAS LIMON Attending Unavailable JULIA ARRIAZA Attending Unavailabl e Allergies Allergy Classification Reported Allergen(s) Allergy Type Date of Onset Reaction(s) Facility (9 sources) IODINATED CONTRAST MEDIA; Translations: [IODINATED CONTRAST MEDIA] Propensity to adverse reactions to drug (disorder) 3 [facility] (3 sources) GADOLINIUM-CONTA INING CONTRAST MEDIA; Translations: [GADOLINIUM-CONT AINING CONTRAST MEDIA] Propensity to adverse reactions to drug (disorder) 3 [facility] Medications Current Medications Medication Drug Class(es) Dates Sig (Normalized) Sig (Original) 10 actuat olodaterol 0.0025 mg/actuat / tiotropium 0.0025 mg/actuat inhalation spray (8 sources) Anticholinergic, beta2-Adrenergic Agonist Start: 01-29-2024 End: 2024 tiotropium-olodaterol (Stiolto Respimat) 2.5-2.5 MCG/ACT aerosol solution inhaler Indications: Chronic obstructive pulmonary disease, unspecified COPD type ([facility]) Inhale 2 Inhalation Daily 4 g 2 2024 Active omeprazole 20 mg delayed release oral capsule (9 sources) Proton Pump Inhibitor Start: 09-05-2024 take 1 capsule by mouth in the morning omeprazole (PriLOSEC) [address] capsule Indications: Gastroesophageal reflux disease with esophagitis, unspecified whether hemorrhage TAKE 1 CAPSULE BY MOUTH IN THE MORNING; take BEFORE a meal; DO NOT CRUSH, CHEW, OR SPLIT 90 capsule 3 09/05/2024 Active Start: 09-05-2024 take 1 capsule by mo uth in the morning omeprazole (PriLOSEC) [address] capsule Indications: Gastroesophageal reflux disease with esophagitis, unspecified whether hemorrhage TAKE 1 CAPSULE BY MOUTH IN THE MORNING; take BEFORE a meal; DO NOT CRUSH, CHEW, OR SPLIT 90 capsule 3 09/05/2024 Active Start: 01-29-2024 End: 2025 take 1 tablet by mouth before mealtime omeprazole OTC (PriLOSEC OTC) 20 MG EC tablet Indications: Gastroesophageal reflux disease with esophagitis, unspecified whether hemorrhage Take 1 tablet (20 mg) by mouth in the morning. Take before meals. Do not crush, chew, or split.. 90 tablet 3 2024 09/05/2024 Discontinued Problems Active Problems Problem Classification Problem Date Documented Da te Episodic/Chronic Alcohol-related disorders (1 source) Alcohol use, unspecified with intoxication, uncomplicated; Translations: [Alcohol use, unspecified with intoxication, uncomplicated] Onset: 10-12-2023 Episodic Anxiety disorders (1 source) Mental health problem Onset: 10-12-2023 Chronic Chronic obstructive pulmonary disease and bronchiectasis (8 sources) Chronic obstructive lung disease; Translations: [Chronic obstructive pulmonary disease, unspecified] Onset: 01-29-2024 01-29-2024 Chronic Deficiency and other anemia (1 source) Anemia; Translations: [Anemia, unspecified] 09-05-2024 Episodic Esophageal disorders (9 sources) Gastro-esophageal reflux disease with esophagitis; Translations: [Gastroesophageal reflux disease with esophagitis] Onset: 01-29-2024 01-29-2024 Chronic Malaise and fatigue (2 sources) Fatigue; Translations: [Chronic fatigue, unspecified] 2024 Chronic Malaise and fatigue (5 sources) Fatigue; Translations: [Other fatigue] Onset: 2024 2024 Episodic Mood disorders (2 sources) Major depressive disorder, single episode, severe without psychotic features; Translations: [Depression] Onset: 09-02-2023 Chronic Nonspecific chest pain (2 sources) Chest pain; Translations: [Chest pain, unspecified] 2024 Episodic Other gastrointestinal disorders (1 source) Diarrhea Onset: 10-09-2023 Episodic Other gastrointestinal disorders (1 source) Diarrhea, unspecified; Translations: [Diarrhea, unspecified] Onset: 09-11-2023 Episodic Residual codes; unclassified (2 sources) Other amnesia; Translations: [Other amnesia] Onset: 09-02-2023 Episodic Spondylosis; intervertebral disc disorders; other back problems (7 sources) Lumbago with sciatica; Translations: [Lumbago with sciatica, unspecified side] Onset: 2024 2024 Episodic Sprains and strains (1 source) Unspecified [...] source) Laceration - injury Onset: 02-10-2024 Episodic Screening and history of mental health and substance abuse codes (7 sources) Personal history of other mental and behavioral disorders; Translations: [Tobacco smoking behavior - finding] Onset: 10-12-2023 01-29-2024 Episodic Results Test Name Value Interpretation Reference Range Facility ALL CBC WITH AUTO DIFFon BASOPHILS ABSOLUTE AUTO 0.1 [facility] Basophils/100 WBC (Bld) 0.6 % 0.2 - 2.0 % [facility] Eosinophils/100 WBC (Bld) 1.9 % 0.9 - 7.0 % [facility] Erythrocyte distribution width (RBC) [Ratio] 12.2 % 11.0 - 15.0 % [facility] Hematocrit (Bld) [Volume fraction] 41.7 % Low 42.0 - 54.0 % [facility] Hemoglobin (Bld) [Mass/Vol] 13.8 g/dL Low 14.0 - 18.0 g/dL [facility] IMMATURE GRANULOCYTES ABS AUTO 0.03 [facility] Immature granulocytes/100 WBC (Bld) 0.4 % 0.0 - 0.5 % [facility] Interpretation and review of laboratory results Abnormal [facility] LYMPHOCYTES ABSOLUTE AUTO 2 [facility] Lymphocytes/100 WBC (Bld) 23.6 % 20.5 - 60.0 % [facility] MCH (RBC) [Entitic mass] 29.4 pg 25.9 - 34.0 pg [facility] MCHC (RBC) [Mass/Vol] 33.1 g/dL 29.9 - 35.2 g/dL [facility] MCV (RBC) [Entitic vol] 88.9 fL 80.0 - 94.0 fL [facility] MONOCYTES ABSOLUTE AUTO 0.6 [facility] Monocytes/100 WBC (Bld) 7.4 % 1.7 - 12.0 % [facility] NEUTROPHILS ABSOLUTE AUTO 5.5 [facility] Neutrophils/100 WBC (Bld) 66.1 % 43.0 - 75.0 % [facility] Platelet mean volume (Bld) [Entitic vol] 10.7 fL 9.5 - 13.5 fL [facility] # [facility].2 [facility] PLT 220 [facility] RBC 4.69 Low [facility] WBC 8.3 [facility] XR ANKLE RT MIN 3 VWSon 11 XR ANKLE RT MIN 3 VWS XR [...] Héctor Mcgee MD on 08/15/2024 3:09 PM Normal [facility] XR FOOT RT MIN 3 VWSon 08-15 [...] Mcgee MD on 08/15/2024 3:10 PM Normal [facility] ACETAMINOPHENon 10-12-2023 Acetaminophen [Mass/Vol] ug/mL Low 10.0-30.0 [facility] Comment on above: Result Comment: Refe rence ranges are for therapeutic limits. Performed By: #### C BCA, CMP, 29914-0, 3298-7, 4024-6, 5643-2, THYR #### [facility] ([id number]) [address] [place] [address] CBC AND AUTO DIFFon 10-12-19 24 ABSOLUTE BASOPHIL 0.1 X10E9/L Normal 0.0-0.2 [facility] Comment on above: Performed By: #### C BCA, CMP, 60898-4, 3298-7, 4024-6, 5643-2, THYR #### [facility] ([id number]) [address] [place] [address] ABSOLUTE NEUTROPHIL 9.5 X10E9/L High 1.5-6.6 [facility] Comment on above: Performed By: #### C BCA, CMP, 74274-7, 3298-7, 4024-6, 5643-2, THYR #### [facility] ([id number]) [address] [place] [address]1895 Basophils/100 WBC (Bld) 0.6 % Normal [facility] Comment on above: Performed By: #### C BCA, CMP, 89523-7, 3298-7, 4024-6, 5643-2, THYR #### [facility] ([id number]) [address] [place] [address]3627 Eosinophils (Bld) [#/Vol] 0.2 10*3/uL Normal 0.0-0.4 [facility] Comment on above: Performed By: #### C BCA, CMP, 09748-3, 3298-7, 4024-6, 5643-2, THYR #### [facility] ([id number]) [address] [place] [address] 98541 Eosinophils/100 WBC (Bld) 1.3 % Normal [facility] Comment on above: Performed By: #### C BCA, CMP, 32965-7, 3298-7, 4024-6, 5643-2, THYR #### [facility] ([id number]) [address] [place] [address] 06351 Erythrocyte distribution width (RBC) [Ratio] 13.9 % Normal 11.5-15.0 [facility] Comment on above: Performed By: #### C BCA, CMP, 15847-2, 3298-7, 4024-6, 5643-2, THYR #### [facility] ([id number]) [address] [place] [address] 31495 Hematocrit (Bld) [Volume fraction] 42.8 % Normal 39-49 [facility] Comment on above: Performed By: #### C BCA, CMP, 76069-6, 3298-7, 4024-6, 5643-2, THYR #### [facility] ([id number]) [address] [place] [address] 23345 Hemoglobin (Bld) [Mass/Vol] 14.4 g/dL Normal 13.0-17.0 [facility] Comment on above: Performed By: #### C BCA, CMP, 04139-6, 3298-7, 4024-6, 5643-2, THYR #### [facility] ([id number]) [address] [place] [address] 18856 Lymphocytes (Bld) [#/Vol] 1.9 10*3/uL Normal 1.0-3.5 [facility] Comment on above: Performed By: #### C BCA, CMP, 77184-6, 3298-7, 4024-6, 5643-2, THYR #### [facility] ([id number]) [address] [place] [address] 54858 Lymphocytes/100 WBC (Bld) 15.4 % Normal [facility] Comment on above: Performed By: #### C BCA, CMP, 02992-6, 3298-7, 4024-6, 5643-2, THYR #### [facility] ([id number]) [address] [place] [address] 87926 MCH (RBC) [Entitic mass] 29.2 pg Normal 27-34 [facility] Comment on above: Performed By: #### C BCA, CMP, 59752-9, 3298-7, 4024-6, 5643-2, THYR #### [facility] ([id number]) [address] [place] [address] 98155 MCHC (RBC) [Mass/Vol] 33.6 g/dL Normal 32-36 [facility] Comment on above: Performed By: #### C BCA, CMP, 74489-5, 3298-7, 4024-6, 5643-2, THYR #### [facility] ([id number]) [address] [place] [address] MCV (RBC) [Entitic vol] 87 fL Normal 80-100 [facility] Comment on above: Performed By: #### C BCA, CMP, 83894-1, 3298-7, 4024-6, 5643-2, THYR #### [facility] ([id number]) [address] [place] [address] Monocytes (Bld) [#/Vol] 0.5 10*3/uL Normal 0-0.9 [facility] Comment on above: Performed By: #### C BCA, CMP, 03070-0, 3298-7, 4024-6, 5643-2, THYR #### [facility] ([id number]) [address] [place] [address] Monocytes/100 WBC (Bld) 4.4 % Normal [facility] Comment on above: Performed By: #### C BCA, CMP, 15415-6, 3298-7, 4024-6, 5643-2, THYR #### [facility] ([id number]) [address] [place] [address] Neutrophils/100 WBC (Bld) 78.3 % Normal [facility] Comment on above: Performed By: #### C BCA, CMP, 90265-5, 3298-7, 4024-6, 5643-2, THYR #### [facility] ([id number]) [address] [place] [address] Platelet mean volume (Bld) [Entitic vol] 7.8 fL Normal 7-12 [facility] Comment on above: Performed By: #### C BCA, CMP, 47726-3, 3298-7, 4024-6, 5643-2, THYR #### [facility] ([id number]) [address] [place] [address] 92582 Platelets (Bld) [#/Vol] 233 10*3/uL Normal 150-450 [facility] Comment on above: Performed By: #### C BCA, CMP, 54443-1, 3298-7, 4024-6, 5643-2, THYR #### [facility] ([id number]) [address] [place] [address] 05020 RBC COUNT 4.93 X10E12/L Normal 4.10-5.70 [facility] Comment on above: Performed By: #### C BCA, CMP, 34593-8, 3298-7, 4024-6, 5643-2, THYR #### [facility] ([id number]) [address] [place] [address] 65993 WBC (Bld) [#/Vol] 12.1 10*3/uL High 4.0-11.0 [facility] Comment on above: Performed By: #### C BCA, CMP, 88715-7, 3298-7, 4024-6, 5643-2, THYR #### [facility] ([id number]) [address] [place] [address] 85669 COMPREHENSIVE METABOLIC PANE Romero 10-12-2023 Albumin [Mass/Vol] 3.5 g/dL Normal 3.2-5.3 [facility] Comment on above: Performed By: #### C BCA, CMP, 01232-7, 3298-7, 4024-6, 5643-2, THYR #### [facility] ([id number]) [address] [place] [address] 54608 ALP [Catalytic activity/Vol] 39 U/L Normal 39-130 [facility] Comment on above: Performed By: #### C BCA, CMP, 46224-8, 3298-7, 4024-6, 5643-2, THYR #### [facility] ([id number]) [address] [place] [address] ALT [Catalytic activity/Vol] 13 U/L Normal 0-40 [facility] Comment on above: Performed By: #### C BCA, CMP, 46198-9, 3298-7, 4024-6, 5643-2, THYR #### [facility] ([id number]) [address] [place] [address] Anion gap [Moles/Vol] 8 mmol/L Normal 5-15 [facility] Comment on above: Performed By: #### C BCA, CMP, 69364-2, 3298-7, 4024-6, 5643-2, THYR #### [facility] ([id number]) [address] [place] [address] 94677 AST [Catalytic activity/Vol] 21 U/L Normal 0-41 [facility] Comment on above: Performed By: #### C BCA, CMP, 60197-7, 3298-7, 4024-6, 5643-2, THYR #### [facility] ([id number]) [address] [place] [address] 79586 Bilirubin [Mass/Vol] 0.4 mg/dL Normal 0.3-1.2 [facility] Comment on above: Performed By: #### C BCA, CMP, 19389-1, 3298-7, 4024-6, 5643-2, THYR #### [facility] ([id number]) [address] [place] [address] Calcium [Mass/Vol] 8.1 mg/dL Low 8.5-10.5 [facility] Comment on above: Performed By: #### C BCA, CMP, 89270-5, 3298-7, 4024-6, 5643-2, THYR #### [facility] ([id number]) [address] [place] [address] Chloride [Moles/Vol] 111 mmol/L High 98-109 [facility] Comment on above: Performed By: #### C BCA, CMP, 31288-1, 3298-7, 4024-6, 5643-2, THYR #### [facility] ([id number]) [address] [place] [address] CO2 [Moles/Vol] 25 mmol/L Normal 22-32 [facility] Comment on above: Performed By: #### C BCA, CMP, 40726-5, 3298-7, 4024-6, 5643-2, THYR #### [facility] ([id number]) [address] [place] [address] 39847 Creatinine [Mass/Vol] 0.62 mg/dL Normal 0.60-1.30 [facility] Comment on above: Result Comment: METH OD TRACEABLE TO IDMS STANDARD Performed By: #### C BCA, CMP, 42772-6, 3298-7, 4024-6, 5643-2, THYR #### [facility] ([id number]) [address] [place] [address] 69221 eGFR (CKD-EPI) NON-RACE DEPENDENT >90 Normal >59 [facility] Comment on above: Result Comment: Reported eGFR is based on the CKD-EPI 2020 equation that does not use a race coefficient. Performed By: #### C BCA, CMP, 24550-7, 3298-7, 4024-6, 5643-2, THYR #### [facility] ([id number]) [address] [place] [address]12 Glucose [Mass/Vol] 84 mg/dL Normal 65-99 [facility] Comment on above: Performed By: #### C BCA, CMP, 74579-3, 3298-7, 4024-6, 5643-2, THYR #### [facility] ([id number]) [address] [place] [address] 35977 Potassium [Moles/Vol] 3.8 mmol/L Normal 3.5-5.0 [facility] Comment on above: Performed By: #### C BCA, CMP, 88526-8, 3298-7, 4024-6, 5643-2, THYR #### [facility] ([id number]) [address] [place] [address] Protein [Mass/Vol] 5.5 g/dL Low 6.0-8.0 [facility] Comment on above: Performed By: #### C BCA, CMP, 19788-7, 3298-7, 4024-6, 5643-2, THYR #### [facility] ([id number]) [address] [place] [address] 80425 Sodium [Moles/Vol] 144 mmol/L Normal 134-146 [facility] Comment on above: Performed By: #### C BCA, CMP, 76449-6, 3298-7, 4024-6, 5643-2, THYR #### [facility] ([id number]) [address] [place] [address] 48921 Urea nitrogen [Mass/Vol] 11 mg/dL Normal 5-23 [facility] Comment on above: Performed By: #### C BCA, CMP, 98535-9, 3298-7, 4024-6, 5643-2, THYR #### [facility] ([id number]) [address] [place] [address] 27932 DRUG SCREEN, URINEon 024 AMPHETAMINE/METHAMP Negative Normal NEG [facility] Comment on above: Result Comment: AMPH /METH screening cut off = 1000 ng/mL Performed By: #### D NASH #### [facility] ([id number]) [address] [place] [address] BARBITURATES Negative Normal NEG [facility] Comment on above: Result Comment: Deborah iturates screening cut off value = 200 ng/mL Performed By: #### D NASH #### [facility] ([id number]) [address] [place] [address] BENZODIAZEPINES Negative Normal NEG [facility] Comment on above: Result Comment: Juan F odiazepines screening cut off value = 200 ng/mL Performed By: #### D NASH #### [facility] ([id number]) [address] [place] [address] CANNABINOIDS Positive Abnormal NEG [facility] Comment on above: Result Comment: Conf irmation available upon request. Cannabinoids/THC screening cut off value = 50 ng/mL Performed By: #### D NASH #### [facility] ([id number]) [address] [place] [address] COCAINE METABOLITE Negative Normal NEG [facility] Comment on above: Result Comment: Coca ine screening cut off value = 300 ng/mL Performed By: #### D NASH #### [facility] ([id number]) [address] [place] [address] ECSTASY Negative Normal [facility] Comment on above: Result Comment: Ecst asy screening cut off value = 500 ng/mL This report is intended for use in clinical monitoring or management of patients. Performed By: #### D NASH #### [facility] ([id number]) [address] [place] [address] METHADONE Negative Normal [facility] Comment on above: Result Comment: Meth adone screening cut off value = 300 ng/mL. Performed By: #### D NASH #### [facility] ([id number]) [address] [place] [address] OPIATES Negative Normal NEG [facility] Comment on above: Result Comment: Opia dom screening cut off value = 300 ng/mL NOTE: This test is used for the detection of codeine, hydrocodone (>1000 ng/mL), morphine and hydromorphone (>900 ng/mL) in urine. Performed By: #### D NASH #### [facility] ([id number]) [address] [place] [address] 18106 OXYCODONE Negative Normal NEG [facility] Comment on above: Result Comment: Oxyc odone screening cut off value = 300 ng/mL NOTE: This test is used for the detection of oxycodone and oxymorphone in urine. Performed By: #### D NASH #### [facility] ([id number]) [address] [place] [address] PHENCYCLIDINE Negative Normal NEG [facility] Comment on above: Result Comment: Phen cyclidine screening cut off value = 25 ng/mL Performed By: #### D NASH #### [facility] ([id number]) [address] [place] [address] 38790 Ethanol [Mass/Vol]on 024 ETHANOL 0.17 g/dL High 0.00-0.08 [facility] Comment on above: Result Comment: This report is intended for use in clinical monitoring or management of patients. Performed By: #### C BCA, CMP, 51957-6, 3298-7, 4024-6, 5643-2, THYR #### [facility] ([id number]) [address] [place] [address] 15111 MAGNESIUMon 10-12-2023 Magnesium [Mass/Vol] 1.8 mg/dL Normal 1.8-2.6 [facility] Comment on above: Performed By: #### C BCA, CMP, 75817-7, 3298-7, 4024-6, 5643-2, THYR #### [facility] ([id number]) [address] [place] [address] 40928 Salicylates [Mass/Vol]on SALICYLATE <2.5 Normal 2.0-25.0 [facility] Comment on above: Result Comment: Refe rence ranges are for therapeutic limits. Performed By: #### C BCA, CMP, 61152-7, 3298-7, 4024-6, 5643-2, THYR #### [facility] ([id number]) [address] [place] [address] 12056 THYROID PROFILEon 10-12-2023 Free T4 [Mass/Vol] 0.97 ng/dL Normal 0.61-1.60 [facility] Comment on above: Performed By: #### C BCA, CMP, 98170-5, 3298-7, 4024-6, 5643-2, THYR #### [facility] ([id number]) [address] [place] [address] 27786 TSH 1.12 uIU/mL Normal 0.49-4.67 [facility] Comment on above: Performed By: #### C BCA, CMP, 25140-9, 3298-7, 4024-6, 5643-2, THYR #### [facility] ([id number]) [address] [place] [address] 63306 URINALYSISon 10-12-2023 Bilirubin Ql (U) Negative Normal NEG [facility] Comment on above: Performed By: #### U A #### [facility] ([id number]) [address] [place] [address] 49547 BLOOD/HGB Negative Normal NEG [facility] Comment on above: Performed By: #### U A #### [facility] ([id number]) [address] [place] [address] 37991 Color (U) YELLOW Normal YELLOW [facility] Comment on above: Performed By: #### U A #### [facility] ([id number]) [address] [place] [address] 00166 Glucose Ql (U) Negative Normal NEG [facility] Comment on above: Performed By: #### U A #### [facility] ([id number]) [address] [place] [address] Ketones Ql (U) Trace Abnormal NEG [facility] Comment on above: Performed By: #### U A #### [facility] ([id number]) [address] [place] [address] Leukocyte esterase Test strip Ql (U) Negative Normal NEG [facility] Comment on above: Performed By: #### U A #### [facility] ([id number]) [address] [place] [address] Nitrite Ql (U) Negative Normal NEG [facility] Comment on above: Performed By: #### U A #### [facility] ([id number]) [address] [place] [address] pH (U) 7.0 [pH] Normal 5.0-8.5 [facility] Comment on above: Performed By: #### U A #### [facility] ([id number]) [address] [place] [address] Protein Ql (U) Negative Normal NEG [facility] Comment on above: Performed By: #### U A #### [facility] ([id number]) [address] [place] [address] Specific gravity (U) [Rel density] 1.010 Normal 1.003-1.035 [facility] Comment on above: Performed By: #### U A #### [facility] ([id number]) [address] [place] [address] TURBIDITY CLEAR Normal CLEAR [facility] Comment on above: Performed By: #### U A #### [facility] ([id number]) [address] [place] [address] Urobilinogen Qn (U) 0.2 {Violet'U}/dL Normal <1.1 [facility] Comment on above: Performed By: #### U A #### [facility] ([id number]) [address] [place], [place] [id number] MR BRAIN WO CONTon 4 MR BRAIN WO CONT MR BRAIN WO [...] Mcgee MD on 09/22/2023 7:55 PM Normal [facility] Vital Signs Date Time Vital Sign Value Performing Clinician Guilhermei raúl 2024 15:140500 Body height 167.6 cm Julia Arriaza [employer] WORK[employer]PERVISOR Work Phone: [facility] 2024 15:14-0500 Body mass index (BMI) [Ratio] 31.76 kg/m2 Julia Ortegatrick [employer]ORE WORKING SUPERVISOR Work Phone: [facility] 2024 15:14-0500 Body temperature 97.2 [degF] Julia Nealk [employer] WORKING SUPERVISOR Work Phone: [facility] 2024 15:14-0500 Body weight 89.27 kg Julia Nealk [employer]ORE WORKING SUPERVISOR Work Phone: [facility] 2024 15:14-0500 Diastolic blood pressure 78 mm[Hg] Julia Nealk [employer] WORKING SUPERVISOR Work Phone: [facility] 2024 15:14-0500 Heart rate 71 /min Julia Nealk [employer] WORKING SUPERVISOR Work Phone: [facility] 2024 15:14-0500 Respiratory rate 16 /min Julia Nealk [employer] WORKING SUPERVISOR Work Phone: [facility] 2024 15:14-0500 SaO2% (BldA) [Mass fraction] 99 % Julia Nealk [employer] WORKING SUPERVISOR Work Phone: [facility] 2024 15:14-0500 Systolic blood pressure 120 mm[Hg] Julia Nealk [employer]ORE WORKING SUPERVISOR Work Phone: [facility] Healthcare Encounters Encounter Date Encounter Type Care Provider Facility Start: 09-05-2024 End: 09-05-2024 Orders Only Julia Arriaza [employer] WORKING SUPERVISOR Work Phone: [facility] Comment on above: Anemia, unspecified type (Primary Dx) Start: 09-03-2024 End: 09-03-2024 Clinisync Result Encounter Julia Arriaza [employer] WORKING SUPERVISOR Work Phone: [facility] External Department Unsolicited Start: 09-03-2024 End: 09-03-2024 Clinisync Result Encounter Julia Arriaza [employer] WORKING SUPERVISOR Work Phone: [facility] External Department Unsolicited Start: 2024 End: 2024 Initial preventive medicine new patient 40-64yrs Julia Arriaza [employer] WORKING SUPERVISOR Work Phone: [facility] Comment on above: Encounter for medica l examination to establish care (Primary Dx); Chronic obstructive pulmonary disease, unspecified COPD type (CMS/HCC); Gastroesophageal reflux disease with esophagitis, unspecified whether hemorrhage; Back pain of lumbosacral region with sciatica; Intermittent chest pain; Chronic fatigue Start: 2024 End: 2024 ambulatory JULIA ARRIAZA Not Available Start: 2024 End: 2024 Bamboo flowsheet Julia Arriaza [employer] WORKING SUPERVISOR Work Phone: [facility] Start: 2024 End: 2024 Bamboo flowsheet Julia Arriaza [employer]ORE WORKING SUPERVISOR Work Phone: [facility] Start: 2024 End: 2024 Patient encounter status Julia Arriaza [employer] WORKING SUPERVISOR Work Phone: [facility] Start: 2024 End: 09-05-2024 Refill Julia Arriaza [employer] WORKING SUPERVISOR Work Phone: [facility] Comment on above: Gastroesophageal ref lux disease with esophagitis, unspecified whether hemorrhage Start: 08-15-2024 End: 08-15-2024 Emergency department patient visit NO PCP NO PCP [facility] Start: 02-10-2024 End: 02-10-2024 Emergency department patient visit NO PCP NO PCP [facility] Start: 02-10-2024 End: 02-10-2024 Emergency department patient visit J[facility] Start: 01-29-2024 End: 01-29-2024 ambulatory SILAS LIMON Not Available Start: 10-12-2023 End: 10-13-2023 Emergency department patient visit [facility] Start: 10-09-2023 End: 10-09-2023 ambulatory [facility] Start: 09-22-2023 End: 09-23-2023 ambulatory [facility] Start: 09-11-2023 End: 09-11-2023 ambulatory [facility] Procedures Date Procedure Procedure Detail Performing Clinician Start: 09-03-2024 ALL CBC WITH AUTO DIFF Julia Arriaza [employer] WORKING SUPERVISOR Work Phone: Plan of Treatment Date Care Activity Detail Author Start: 09-05-2024 End: 09-05-2025 Cobalamin (Vitamin B12) [Mass/volume] in Serum or Plasma Vitamin B12 Lab Routine Anemia, unspecified type Expected: 09/05/2024 (Approximate), Expires: 09/05/2025 [facility] Work Phone: Comment on above: Expected: 09/05/2024 (Approximate), Expires: 09/05/2025 Start: 09-05-2024 End: 09-05-2025 Ferritin [Mass/volume] in Serum or Plasma Ferritin Lab Routine Anemia, unspecified type Expected: 09/05/2024 (Approximate), Expires: 09/05/2025 [facility] Comment on above: Expected: 09/05/2024 (Approximate), Expires: 09/05/2025 Start: 09-05-2024 End: 09-05-2025 Iron + transferrin + TIBC Iron + transferrin + TIBC Lab Routine Anemia, unspecified type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
== END 2024-09-16 09:30 | disposition home or self-care (01) ==
LOC: CARD 09:31
DX: R07.9 Chest pain, unspecified (principal)
CPT/HCPCS: 93005

== ENCOUNTER 2024-10-03 09:42 | Outpatient (OUT) | payer OTHER, SELFPAY ==
--- OUTSIDE RECORDS SUMMARY | 2024-10-03 09:53 | XMS_ITS | CCD ---
Author Organization [facility] Inform ion Partnership [facility] Care Team Providers Care Store Keeper Name Role Phone DALJIT LEON Attending Unavailable [...] Unavailable Augustus PFEIFFER, Desmond Primary Care Provider [phone] Arsalan BENITEZ, Julia Unavailable SILAS LIMON Attending Unavailable JULIA ARRIAZA Attending [...] Chronic obstructive pulmonary disease, unspecified COPD type ([facility]) Inhale 2 Inhalation Daily 4 g 2 [...] (Bld) 0.6 % 0.2 - 2.0 % [facility] Eosinophils/100 WBC (Bld) 1.9 % 0.9 - 7.0 % [facility] Erythrocyte distribution width (RBC) [Ratio] 12.2 % 11.0 - 15.0 % [facility] Hematocrit (Bld) [Volume fraction] 41.7 % Low 42.0 - 54.0 % [facility] Hemoglobin (Bld) [Mass/Vol] 13.8 g/dL Low 14.0 - 18.0 g/dL [facility] IMMATURE GRANULOCYTES ABS AUTO 0.03 [facility] Immature granulocytes/100 WBC (Bld) 0.4 % 0.0 - 0.5 % [facility] Interpretation and review of laboratory results Abnormal [facility] LYMPHOCYTES ABSOLUTE AUTO 2 [facility] Lymphocytes/100 WBC (Bld) 23.6 % 20.5 - 60.0 % [facility] MCH (RBC) [Entitic mass] 29.4 pg 25.9 - 34.0 pg [facility] MCHC (RBC) [Mass/Vol] 33.1 g/dL 29.9 - 35.2 g/dL [facility] MCV (RBC) [Entitic vol] 88.9 fL 80.0 - 94.0 fL [facility] MONOCYTES ABSOLUTE AUTO 0.6 [facility] Monocytes/100 WBC (Bld) 7.4 % 1.7 - 12.0 % [facility] NEUTROPHILS ABSOLUTE AUTO 5.5 [facility] Neutrophils/100 WBC (Bld) 66.1 % 43.0 - 75.0 % [facility] Platelet mean volume (Bld) [Entitic vol] 10.7 fL 9.5 - 13.5 fL [facility] # 0.2 [facility]H PLT 220 [facility] RBC 4.69 Low [facility] WBC 8.3 [facility] XR ANKLE RT MIN [...] Mcgee MD on 08/15/2024 3:09 PM Normal [facility] XR FOOT RT MIN 3 VWSon [...] Mcgee MD on 08/15/2024 3:10 PM Normal [facility] ACETAMINOPHENon 10-12-2023 Acetaminophen [Mass/Vol] ug/mL Low 10.0-30.0 [facility] Comment on above: Result Comment: Refe rence ranges are for therapeutic limits. Performed By: #### C BCA, CMP, 13653-5, 3298-7, 4024-6, 5643-2, THYR #### [facility] ([id number]) [address] [place] [address] CBC AND AUTO DIFFon 10-12-19 24 ABSOLUTE BASOPHIL 0.1 X10E9/L Normal 0.0-0.2 [facility] Comment on above: Performed By: #### C BCA, CMP, 88038-8, 3298-7, 4024-6, 5643-2, THYR #### [facility] ([id number]) [address] [place] [address] ABSOLUTE NEUTROPHIL 9.5 X10E9/L High 1.5-6.6 [facility] Comment on above: Performed By: #### C BCA, CMP, 05593-8, 3298-7, 4024-6, 5643-2, THYR #### [facility] ([id number]) [address] [place] [address] Basophils/100 WBC (Bld) 0.6 % Normal [facility] Comment on above: Performed By: #### C BCA, CMP, 31571-5, 3298-7, 4024-6, 5643-2, THYR #### [facility] ([id number]) [address] [place] [address] Eosinophils (Bld) [#/Vol] 0.2 10*3/uL Normal 0.0-0.4 [facility] Comment on above: Performed By: #### C BCA, CMP, 30201-3, 3298-7, 4024-6, 5643-2, THYR #### [facility] ([id number]) [address] [place] [address]56 Eosinophils/100 WBC (Bld) 1.3 % Normal [facility] Comment on above: Performed By: #### C BCA, CMP, 91228-8, 3298-7, 4024-6, 5643-2, THYR #### [facility] ([id number]) [address] [place] [address]1203 Erythrocyte distribution width (RBC) [Ratio] 13.9 % Normal 11.5-15.0 [facility] Comment on above: Performed By: #### C BCA, CMP, 69356-3, 3298-7, 4024-6, 5643-2, THYR #### [facility] ([id number]) [address] [place] [address] 88533 Hematocrit (Bld) [Volume fraction] 42.8 % Normal 39-49 [facility] Comment on above: Performed By: #### C BCA, CMP, 57934-3, 3298-7, 4024-6, 5643-2, THYR #### [facility] ([id number]) [address] [place] [address] 86069 Hemoglobin (Bld) [Mass/Vol] 14.4 g/dL Normal 13.0-17.0 [facility] Comment on above: Performed By: #### C BCA, CMP, 56377-1, 3298-7, 4024-6, 5643-2, THYR #### [facility] ([id number]) [address] [place] [address] 78168 Lymphocytes (Bld) [#/Vol] 1.9 10*3/uL Normal 1.0-3.5 [facility] Comment on above: Performed By: #### C BCA, CMP, 01841-2, 3298-7, 4024-6, 5643-2, THYR #### [facility] ([id number]) [address] [place] [address] 69512 Lymphocytes/100 WBC (Bld) 15.4 % Normal [facility] Comment on above: Performed By: #### C BCA, CMP, 36554-9, 3298-7, 4024-6, 5643-2, THYR #### [facility] ([id number]) [address] [place] [address] 40995 MCH (RBC) [Entitic mass] 29.2 pg Normal 27-34 [facility] Comment on above: Performed By: #### C BCA, CMP, 77065-2, 3298-7, 4024-6, 5643-2, THYR #### [facility] ([id number]) [address] [place] [address]357 MCHC (RBC) [Mass/Vol] 33.6 g/dL Normal 32-36 [facility] Comment on above: Performed By: #### C BCA, CMP, 89402-9, 3298-7, 4024-6, 5643-2, THYR #### [facility] ([id number]) [address] [place] [address] MCV (RBC) [Entitic vol] 87 fL Normal 80-100 [facility] Comment on above: Performed By: #### C BCA, CMP, 16466-6, 3298-7, 4024-6, 5643-2, THYR #### [facility] ([id number]) [address] [place] [address] Monocytes (Bld) [#/Vol] 0.5 10*3/uL Normal 0-0.9 [facility] Comment on above: Performed By: #### C BCA, CMP, 16099-6, 3298-7, 4024-6, 5643-2, THYR #### [facility] ([id number]) [address] [place] [address] Monocytes/100 WBC (Bld) 4.4 % Normal [facility] Comment on above: Performed By: #### C BCA, CMP, 04869-4, 3298-7, 4024-6, 5643-2, THYR #### [facility] ([id number]) [address] [place] [address] Neutrophils/100 WBC (Bld) 78.3 % Normal [facility] Comment on above: Performed By: #### C BCA, CMP, 66160-0, 3298-7, 4024-6, 5643-2, THYR #### [facility] ([id number]) [address] [place] [address] Platelet mean volume (Bld) [Entitic vol] 7.8 fL Normal 7-12 [facility] Comment on above: Performed By: #### C BCA, CMP, 32729-2, 3298-7, 4024-6, 5643-2, THYR #### [facility] ([id number]) [address] [place] [address] 89142 Platelets (Bld) [#/Vol] 233 10*3/uL Normal 150-450 [facility] Comment on above: Performed By: #### C BCA, CMP, 86460-1, 3298-7, 4024-6, 5643-2, THYR #### [facility] ([id number]) [address] [place] [address] 22753 RBC COUNT 4.93 X10E12/L Normal 4.10-5.70 [facility] Comment on above: Performed By: #### C BCA, CMP, 05856-8, 3298-7, 4024-6, 5643-2, THYR #### [facility] ([id number]) [address] [place] [address] 81498 WBC (Bld) [#/Vol] 12.1 10*3/uL High 4.0-11.0 [facility] Comment on above: Performed By: #### C BCA, CMP, 22831-5, 3298-7, 4024-6, 5643-2, THYR #### [facility] ([id number]) [address] [place] [address] 67599 COMPREHENSIVE METABOLIC PANE Romero 10-12-2023 Albumin [Mass/Vol] 3.5 g/dL Normal 3.2-5.3 [facility] Comment on above: Performed By: #### C BCA, CMP, 22966-3, 3298-7, 4024-6, 5643-2, THYR #### [facility] ([id number]) [address] [place] [address] 92816 ALP [Catalytic activity/Vol] 39 U/L Normal 39-130 [facility] Comment on above: Performed By: #### C BCA, CMP, 63954-5, 3298-7, 4024-6, 5643-2, THYR #### [facility] ([id number]) [address] [place] [address] ALT [Catalytic activity/Vol] 13 U/L Normal 0-40 [facility] Comment on above: Performed By: #### C BCA, CMP, 41914-0, 3298-7, 4024-6, 5643-2, THYR #### [facility] ([id number]) [address] [place] [address] Anion gap [Moles/Vol] 8 mmol/L Normal 5-15 [facility] Comment on above: Performed By: #### C BCA, CMP, 02538-9, 3298-7, 4024-6, 5643-2, THYR #### [facility] ([id number]) [address] [place] [address] 91081 AST [Catalytic activity/Vol] 21 U/L Normal 0-41 [facility] Comment on above: Performed By: #### C BCA, CMP, 62542-9, 3298-7, 4024-6, 5643-2, THYR #### [facility] ([id number]) [address] [place] [address]7435 Bilirubin [Mass/Vol] 0.4 mg/dL Normal 0.3-1.2 [facility] Comment on above: Performed By: #### C BCA, CMP, 74115-0, 3298-7, 4024-6, 5643-2, THYR #### [facility] ([id number]) [address] [place] [address] Calcium [Mass/Vol] 8.1 mg/dL Low 8.5-10.5 [facility] Comment on above: Performed By: #### C BCA, CMP, 19266-3, 3298-7, 4024-6, 5643-2, THYR #### [facility] ([id number]) [address] [place] [address] Chloride [Moles/Vol] 111 mmol/L High 98-109 [facility] Comment on above: Performed By: #### C BCA, CMP, 19663-7, 3298-7, 4024-6, 5643-2, THYR #### [facility] ([id number]) [address] [place] [address] CO2 [Moles/Vol] 25 mmol/L Normal 22-32 [facility] Comment on above: Performed By: #### C BCA, CMP, 03929-0, 3298-7, 4024-6, 5643-2, THYR #### [facility] ([id number]) [address] [place] [address] 76625 Creatinine [Mass/Vol] 0.62 mg/dL Normal 0.60-1.30 [facility] Comment on above: Result Comment: METH OD TRACEABLE TO IDMS STANDARD Performed By: #### C BCA, CMP, 91692-8, 3298-7, 4024-6, 5643-2, THYR #### [facility] ([id number]) [address] [place] [address] 35355 eGFR (CKD-EPI) NON-RACE DEPENDENT >90 Normal >59 [facility] Comment on above: Result Comment: Reported eGFR is based on the CKD-EPI 2020 equation that does not use a race coefficient. Performed By: #### C BCA, CMP, 00885-4, 3298-7, 4024-6, 5643-2, THYR #### [facility] ([id number]) [address] [place] [address] 63748 Glucose [Mass/Vol] 84 mg/dL Normal 65-99 [facility] Comment on above: Performed By: #### C BCA, CMP, 46882-0, 3298-7, 4024-6, 5643-2, THYR #### [facility] ([id number]) [address] [place] [address] 70220 Potassium [Moles/Vol] 3.8 mmol/L Normal 3.5-5.0 [facility] Comment on above: Performed By: #### C BCA, CMP, 29331-6, 3298-7, 4024-6, 5643-2, THYR #### [facility] ([id number]) [address] [place] [address] Protein [Mass/Vol] 5.5 g/dL Low 6.0-8.0 [facility] Comment on above: Performed By: #### C BCA, CMP, 58206-0, 3298-7, 4024-6, 5643-2, THYR #### [facility] ([id number]) [address] [place] [address] 92665 Sodium [Moles/Vol] 144 mmol/L Normal 134-146 [facility] Comment on above: Performed By: #### C BCA, CMP, 95959-9, 3298-7, 4024-6, 5643-2, THYR #### [facility] ([id number]) [address] [place] [address] 43627 Urea nitrogen [Mass/Vol] 11 mg/dL Normal 5-23 [facility] Comment on above: Performed By: #### C BCA, CMP, 24374-0, 3298-7, 4024-6, 5643-2, THYR #### [facility] ([id number]) [address] [place] [address] 36752 DRUG SCREEN, URINEon 024 AMPHETAMINE/METHAMP Negative Normal NEG [facility] Comment on above: Result Comment: AMPH /METH screening cut off = 1000 ng/mL Performed By: #### D NASH #### [facility] ([id number]) [address] [place] [address] BARBITURATES Negative Normal NEG [facility] Comment on above: Result Comment: Deborah iturates screening cut off value = 200 ng/mL Performed By: #### D NASH #### [facility] ([id number]) [address] [place] [address] BENZODIAZEPINES Negative Normal NEG [facility] Comment on above: Result Comment: Juan F odiazepines screening cut off value = 200 ng/mL Performed By: #### D NASH #### [facility] ([id number]) [address] [place] [address] CANNABINOIDS Positive Abnormal NEG [facility] Comment on above: Result Comment: Conf irmation available upon request. Cannabinoids/THC screening cut off value = 50 ng/mL Performed By: #### D NASH #### [facility] ([id number]) [address] [place] [address] COCAINE METABOLITE Negative Normal NEG [facility] Comment on above: Result Comment: Coca ine screening cut off value = 300 ng/mL Performed By: #### D NASH #### [facility] ([id number]) [address] [place] [address] ECSTASY Negative Normal [facility] Comment on above: Result Comment: Ecst asy screening cut off value = 500 ng/mL This report is intended for use in clinical monitoring or management of patients. Performed By: #### D NASH #### [facility] ([id number]) [address] [place] [address] METHADONE Negative Normal [facility] Comment on above: Result Comment: Meth adone screening cut off value = 300 ng/mL. Performed By: #### D NASH #### [facility] ([id number]) [address] [place] [address] OPIATES Negative Normal NEG [facility] Comment on above: Result Comment: Opia dom screening cut off value = 300 ng/mL NOTE: This test is used for the detection of codeine, hydrocodone (>1000 ng/mL), morphine and hydromorphone (>900 ng/mL) in urine. Performed By: #### D NASH #### [facility] ([id number]) [address] [place] [address] 13767 OXYCODONE Negative Normal NEG [facility] Comment on above: Result Comment: Oxyc odone screening cut off value = 300 ng/mL NOTE: This test is used for the detection of oxycodone and oxymorphone in urine. Performed By: #### D NASH #### [facility] ([id number]) [address] [place] [address] PHENCYCLIDINE Negative Normal NEG [facility] Comment on above: Result Comment: Phen cyclidine screening cut off value = 25 ng/mL Performed By: #### D NASH #### [facility] ([id number]) [address] [place] [address] 49197 Ethanol [Mass/Vol]on 024 ETHANOL 0.17 g/dL High 0.00-0.08 [facility] Comment on above: Result Comment: This report is intended for use in clinical monitoring or management of patients. Performed By: #### C BCA, CMP, 38472-8, 3298-7, 4024-6, 5643-2, THYR #### [facility] ([id number]) [address] [place] [address] 54910 MAGNESIUMon 10-12-2023 Magnesium [Mass/Vol] 1.8 mg/dL Normal 1.8-2.6 [facility] Comment on above: Performed By: #### C BCA, CMP, 67892-7, 3298-7, 4024-6, 5643-2, THYR #### [facility] ([id number]) [address] [place] [address] 98629 Salicylates [Mass/Vol]on SALICYLATE <2.5 Normal 2.0-25.0 [facility] Comment on above: Result Comment: Refe rence ranges are for therapeutic limits. Performed By: #### C BCA, CMP, 31005-0, 3298-7, 4024-6, 5643-2, THYR #### [facility] ([id number]) [address] [place] [address] 34717 THYROID PROFILEon 10-12-2023 Free T4 [Mass/Vol] 0.97 ng/dL Normal 0.61-1.60 [facility] Comment on above: Performed By: #### C BCA, CMP, 27230-1, 3298-7, 4024-6, 5643-2, THYR #### [facility] ([id number]) [address] [place] [address] 78877 TSH 1.12 uIU/mL Normal 0.49-4.67 [facility] Comment on above: Performed By: #### C BCA, CMP, 44153-5, 3298-7, 4024-6, 5643-2, THYR #### [facility] ([id number]) [address] [place] [address] 69215 URINALYSISon 10-12-2023 Bilirubin Ql (U) Negative Normal NEG [facility] Comment on above: Performed By: #### U A #### [facility] ([id number]) [address] [place] [address] 56519 BLOOD/HGB Negative Normal NEG [facility] Comment on above: Performed By: #### U A #### [facility] ([id number]) [address] [place] [address] 13007 Color (U) YELLOW Normal YELLOW [facility] Comment on above: Performed By: #### U A #### [facility] ([id number]) [address] [place] [address] 89044 Glucose Ql (U) Negative Normal NEG [facility] Comment on above: Performed By: #### U A #### [facility] ([id number]) [address] [place] [address] Ketones Ql (U) Trace Abnormal NEG [facility] Comment on above: Performed By: #### U A #### [facility] ([id number]) [address] [place] [address] Leukocyte esterase Test strip Ql (U) Negative Normal NEG [facility] Comment on above: Performed By: #### U A #### [facility] ([id number]) [address] [place] [address] Nitrite Ql (U) Negative Normal NEG [facility] Comment on above: Performed By: #### U A #### [facility] ([id number]) [address] [place] [address] pH (U) 7.0 [pH] Normal 5.0-8.5 [facility] Comment on above: Performed By: #### U A #### [facility] ([id number]) [address] [place] [address] Protein Ql (U) Negative Normal NEG [facility] Comment on above: Performed By: #### U A #### [facility] ([id number]) [address] [place] [address] Specific gravity (U) [Rel density] 1.010 Normal 1.003-1.035 [facility] Comment on above: Performed By: #### U A #### [facility] ([id number]) [address] [place] [address] TURBIDITY CLEAR Normal CLEAR [facility] Comment on above: Performed By: #### U A #### [facility] ([id number]) [address] [place] [address] Urobilinogen Qn (U) 0.2 {Violet'U}/dL Normal <1.1 [facility] Comment on above: Performed By: #### U A #### [facility] ([id number]) [address] [place], [place] [address] MR BRAIN WO CONTon 4 MR BRAIN [...] Mcgee MD on 09/22/2023 7:55 PM Normal [facility] Vital Signs Date Time Vital Sign Value Performing Clinician Guilhermei raúl 2024 15:140500 Body height 167.6 cm Julia Arriaza [employer]ICAL WORKER Work Phone: [facility] 2024 15:14-0500 Body mass index (BMI) [Ratio] 31.76 kg/m2 Julia Ortegatrick OPTICAL WORKER Work Phone: [facility] 2024 15:14-0500 Body temperature 97.2 [degF] Julia Nealk OPTICAL WORKER Work Phone: [facility] 2024 15:14-0500 Body weight 89.27 kg Julia Nealk OPTICAL WORKER Work Phone: [facility] 2024 15:14-0500 Diastolic blood pressure 78 mm[Hg] Julia Nealk OPTICAL WORKER Work Phone: [facility] 2024 15:14-0500 Heart rate 71 /min Julia Nealk OPTICAL WORKER Work Phone: [facility] 2024 15:14-0500 Respiratory rate 16 /min Julia Nealk OPTICAL WORKER Work Phone: [facility] 2024 15:14-0500 SaO2% (BldA) [Mass fraction] 99 % Julia Nealk OPTICAL WORKER Work Phone: [facility] 2024 15:14-0500 Systolic blood pressure 120 mm[Hg] Julia Nealk OPTICAL WORKER Work Phone: [facility] Healthcare Encounters Encounter Date Encounter Type Care Provider Facility Start: 09-05-2024 End: 09-05-2024 Orders Only Julia Arriaza OPTICAL WORKER Work Phone: [facility] Comment on above: Anemia, unspecified type (Primary Dx) Start: 09-03-2024 End: 09-03-2024 Clinisync Result Encounter Julia Arriaza OPTICAL WORKER Work Phone: [facility] External Department Unsolicited Start: 09-03-2024 End: 09-03-2024 Clinisync Result Encounter Julia Arriaza OPTICAL WORKER Work Phone: [facility] External Department Unsolicited Start: 2024 End: 2024 Initial preventive medicine new patient 40-64yrs Julia Arriaza OPTICAL WORKER Work Phone: [facility] Comment on above: Encounter for medica l examination to establish care (Primary Dx); Chronic obstructive pulmonary disease, unspecified COPD type (CMS/HCC); Gastroesophageal reflux disease with esophagitis, unspecified whether hemorrhage; Back pain of lumbosacral region with sciatica; Intermittent chest pain; Chronic fatigue Start: 2024 End: 2024 ambulatory JULIA ARRIAZA Not Available Start: 2024 End: 2024 Bamboo flowsheet Julia Arriaza OPTICAL WORKER Work Phone: [facility] Start: 2024 End: 2024 Bamboo flowsheet Julia Arriaza OPTICAL WORKER Work Phone: [facility] Start: 2024 End: 2024 Patient encounter status Julia Arriaza OPTICAL WORKER Work Phone: [facility] Start: 2024 End: 09-05-2024 Refill Julia Arriaza OPTICAL WORKER Work Phone: [facility] Comment on above: Gastroesophageal ref lux disease with esophagitis, unspecified whether hemorrhage Start: 08-15-2024 End: 08-15-2024 Emergency department patient visit NO PCP NO PCP [facility] Start: 02-10-2024 End: 02-10-2024 Emergency department patient visit NO PCP NO PCP [facility] Start: 02-10-2024 End: 02-10-2024 Emergency department patient visit [facility] Start: 01-29-2024 End: 01-29-2024 ambulatory SILAS LIMON Not Available Start: 10-12-2023 End: 10-13-2023 Emergency department patient visit [facility] Start: 10-09-2023 End: 10-09-2023 ambulatory [facility] Start: 09-22-2023 End: 09-23-2023 ambulatory [facility] Start: 09-11-2023 End: 09-11-2023 ambulatory [facility] Procedures Date Procedure Procedure Detail Performing Clinician Start: 09-03-2024 ALL CBC WITH AUTO DIFF Julia Arriaza [employer]ICAL WORKER Work Phone: Plan of Treatment Date Care [...] unspecified type Expected: 09/05/2024 (Approximate), Expires: 09/05/2025 [facility] Healthcare Comment on above: Expected: 09/05/2024 (Approximate), Expires: 09/05/2025 Start: 2024 End: 2024 Patient encounter procedure 2024 3:30 PM EST Office Visit [facility] [address] [place] [address] Julia Arriaza NP [address] [place] [address] Arrived [facility] Comment on above: Arrived Start: 2024 End: 2025 25-hydroxyvitamin D3 [Mass/volume] in Serum or Plasma Vitamin D 25 hydroxy Lab Routine Chronic fatigue Expected: 2024 (Approximate), Expires: 2025 [facility] Healthcare Comment on above: Expected: 2024 (Approximate), Expires: 2025 Start: 2024 End: 2025 CBC W Auto Differential panel - Blood CBC and differential Lab Routine Encounter for medical examination to establish care Expected: 2024 (Approximate), Expires: 2025 [facility] Comment on above: Expected: 2024 (Approximate), Expires: 2025 Start: 2024 End: 2025 Cobalamin (Vitamin B12) [Mass/volume] in Serum or Plasma Vitamin B12 Lab Routine Chronic fatigue Expected: 2024 (Approximate), Expires: 2025 [facility] Comment on above: Expected: 2024 (Approximate), Expires: 2025 Start: 2024 End: 2025 Comprehensive metabolic 2000 panel - Serum or Plasma Comprehensive metabolic panel Lab Routine Encounter for medical examination to establish care Expected: 2024 (Approximate), Expires: 2025 [facility] Comment on above: Expected: 2024 (Approximate), Expires: 2025 Start: 2024 End: 2025 ECG 12 lead ECG 12 lead ECG Routine Intermittent chest pain Expected: 2024 (Approximate), Expires: 2025 [facility] Comment on above: Expected: 2024 (Approximate), Expires: 2025 Start: 2024 End: 2025 Ferritin [Mass/volume] in Serum or Plasma Ferritin Lab Routine Chronic fatigue Expected: 2024 (Approximate), Expires: 2025 [facility] Comment on above: Expected: 2024 (Approximate), Expires: 2025 Start: 2024 End: 2025 Hemoglobin A1c/Hemoglobin.total in Blood Hemoglobin A1c Lab Routine Encounter for medical examination to establish care Expected: 2024 (Approximate), Expires: 2025 [facility] Comment on above: Expected: 2024 (Approximate), Expires: 2025 Start: 2024 End: 2025 Iron + transferrin + TIBC Iron + transferrin + TIBC Lab Routine Chronic fatigue Expected: 2024 (Approximate), Expires: 2025 [facility] Comment on above: Expected: 2024 (Approximate), Expires: 2025 Start: 2024 End: 2025 Lipid 1996 panel - Serum or Plasma Lipid panel Lab Routine Encounter for medical examination to establish care Expected: 2024 (Approximate), Expires: 2025 [facility] Comment on above: Expected: 2024 (Approximate), Expires: 2025 Start: 2024 End: 2025 TSH W/REFLEX TO FT4 TSH W/REFLEX TO FT4 Lab Routine Encounter for medical examination to establish care Expected: 2024 (Approximate), Expires: 2025 [facility] Work Phone: Comment on above: Expected: 2024 (Approximate), Expires: 2025 Start: 2024 End: 2025 XR Lumbar spine 4 Views XR LUMBAR SPINE AP/LAT/FLEX/EXT/OBLIQUE S Imaging Routine Back pain of lumbosacral region with sciatica Expected: 2024, Expires: 2025 [facility] Comment on above: Expected: 2024 , Expires: 2025 Start: 05-22-2024 Influenza vaccination Influenza Vacc ine (#1) [facility] Start: 1975 Screening for malign ant neoplasm of colon [facility] Payers Date Payer Category Payer Private Health Insurance [facility] [id number] 2024 Private Health Insurance [id number] 2024 Medicaid [id number] 2024 Worker's Compensation [id number] 2022 Medicaid [id number] 2021 Unknown [id number] 1973 Unknown [id number] .1286 1973 Unknown [id number] 2.16.840.1.800000.3.579.2 .1286 1973 Unknown [id number] [id number] .128 1973 Unknown [id number] 2.16.840.1.355936.3.579.2 .6 1973 Unknown [id number] 2.16.840.1.881944.3.579.2 .128 1973 Unknown [id number] 2.16.840.1.017677.3.579.2 .1286 1973 Unknown [id number] 2.16.840.1.429050.3.579.2 .1286 1973 Unknown [id number] 2.16.840.1.422933.3.579.2 .1259 1973 Unknown [id number] 2.16.840.1.521178.3.579.2 .1259 Social History Date Type Detail Facility Tobacco smoking stat [facility] Tobacco smoking consumption unknown [facility] Start: 1975 Sex assigned at Not on file [facility] Start: 2024 Gender identity Not [facility] file [facility] Start: 2024 Tobacco smoking stat [facility] Ex-smoker [facility] History of tobacco use [...] EC tablet COPD (chronic obstructive pulmonary disease) ([facility]) (Chronic) Relevant Medications tiotropium-olodaterol (Stiolto Respimat) 2.5-2.5 [...] ECG 12 lead documented in this encounter [facility] Instructions 2024 Patient Instructions Note [...] sleep per night. documented in this encounter [facility] Evaluation note Note Date & Type Note Facility Evaluation note Diagnosis Encounter for medical examination to establish care- Primary Chronic obstructive pulmonary disease, unspecified COPD type ([facility]) Gastroesophageal reflux disease with esophagitis, unspecified whether [...] section and content) DATE CREATED AUTHOR 10/11/2023 [facility] DATE CREATED AUTHOR AUTHOR'S ORGANIZ ATION 10/16/2023 [facility] DATE CREATED AUTHOR AUTHOR'S ORGANIZ ATION 08/18/2024 [facility] DATE CREATED AUTHOR AUTHOR'S ORGANIZ ATION 09/04/2024 [facility] EPIC Care Teams (unrecognized sec tion and content) Store Keeper Relationship Specialty Start Date End Date Desmond Coffman MD [address] [place] [address] PCP - General Family Medicine 07/25/24 Julia Arriaza NP [address] [place] [address] Nurse Practitioner Family Medicine 07/25/24 Store Keeper Relationship Specialty Start Date End Date Desmond Coffman MD [address] [place] [phone] PCP - General Family Medicine 07/25/24 Julia Arriaza NP [address] [place] [address] Nurse Practitioner Family Medicine 07/25/24 Store Keeper Relationship Specialty Start Date End Date Desmond Coffman MD [address] [place] [phone] PCP - General Family Medicine 07/25/24 Julia Arriaza NP [address] [place] [address] Nurse Practitioner Family Medicine 07/25/24 Store Keeper Relationship Specialty Start Date End Date Desmond Coffman MD [address] [place] [phone] PCP - General Family Medicine 07/25/24 Julia Arriaza NP [address] [place] [address] Nurse Practitioner Family Medicine 07/25/24 Store Keeper Relationship Specialty Start Date End Date Desmond Coffman MD [address] [place] [address] PCP - General Family Medicine 07/25/24 [facility] [address] [facility] [place] [address] Nurse Practitioner Family Medicine 07/25/24 Reason for [...] BE BASED ON THE PRIMARY CLINICAL RECORDS. [employer] provides no warranty or guarantee of the accuracy or completeness of information in this document.
--- NOTE | 2024-10-03 10:27 | XR_ITS ---
[facility] [place] [id number] Patient Name: RICK MCBRIDE MRN: [id number] date: 1975 Sex: M Assigned Patient Location: LAB Current Patient Location: LAB Accession/Order Number: [id number] Exam Date: 10/03/2024 10:15 Report Date: 10/03/2024 13:57 At the request of: DENYS DE LEON Procedure: XR lumbar spine 6V w bending EXAMINATION: XR lumbar spine 6V w bending HISTORY: Back Pain Of Lumbosacral Region With Sciatica COMPARISON: No relevant comparison available. FINDINGS: BONES: Normal alignment with no acute fracture or spondylolisthesis. Mild spondylosis and facet osteoarthropathy DISC SPACES: Normal. No significant disc height narrowing, subluxation, or endplate abnormality. PARASPINOUS: Negative. No paraspinous abnormality is seen. OTHER: No transient spondylolisthesis with flexion or extension XR/XR lumbar spine 6V w bending IMPRESSION: Mild degenerative change with no dynamic instability Electronically authenticated by: LESTER HERR Date: 10/03/2024 13:57
[2024-10-03 11:08] LABS: Percent Iron Saturation 30.1 %
[2024-10-04 02:06] LABS: Vitamin B12 824 pg/mL (232-1245)
[2024-10-04 04:06] LABS: Transferrin 225 mg/dL (177-329)
== END 2024-10-03 09:43 | disposition home or self-care (01) ==
LOC: LAB 09:44
DX: M54.40 Lumbago with sciatica, unspecified side (principal); D64.9 Anemia, unspecified; M51.369 Other intervertebral disc degeneration, lumbar region without mention of lumbar back pain or lower extremity pain
CPT/HCPCS: 36415; 72114; 82607; 82728; 83540; 83550; 84466

== ENCOUNTER 2024-10-04 18:07 | Emergency (ER) | payer OTHER, SELFPAY ==
[2024-10-04 18:12] VITALS: BP 158/94; PULSE 88; TEMP 36.8; O2SAT 98; BMI 29.1
--- OUTSIDE RECORDS SUMMARY | 2024-10-04 18:17 | XMS_ITS | CCD ---
Author Organization [facility] Inform ion Partnership [facility] Care Team Providers Care Hat Binder Name Role Phone DALJIT LEON Attending Unavailable [...] NO PCP, NO PCP Primary Care Unavailable JAENT GARCIA Attending Unavailable JANET GARCIA Attending Unavailable JAENT GARCIA Referring Unavailable NO PCP, NO PCP Primary Care Unavailable NO PCP, NO PCP Primary Care Unavailable Augustus PFEIFFER, Desmond Primary Care Provider Arsalan BENITEZ, Julia Unavailable [phone] SILAS LIMON Attending Unavailable JULIA ARRIAZA Attending Unavailabl e Allergies Allergy Classification Reported Allergen(s) Allergy Type Date of Onset Reaction(s) Facility (10 sources) IODINATED CONTRAST MEDIA; Translations: [IODINATED CONTRAST MEDIA] Propensity to adverse reactions to drug (disorder) 3 [facility] (3 sources) GADOLINIUM-CONTA INING CONTRAST MEDIA; Translations: [GADOLINIUM-CONT AINING CONTRAST MEDIA] Propensity to adverse reactions to drug (disorder) 3 [facility] Medications Current Medications Medication Drug Class(es) Dates Sig (Normalized) Sig (Original) 10 actuat olodaterol 0.0025 mg/actuat / tiotropium 0.0025 mg/actuat inhalation spray (9 sources) Anticholinergic, beta2-Adrenergic Agonist Start: 01-29-2024 End: 2024 tiotropium-olodaterol (Stiolto Respimat) 2.5-2.5 MCG/ACT aerosol solution inhaler Indications: Chronic obstructive pulmonary disease, unspecified COPD type ([facility]) Inhale 2 Inhalation Daily 4 g 2 2024 Active omeprazole 20 mg delayed release oral capsule (10 sources) Proton Pump Inhibitor Start: 09-05-2024 take [...] Chronic Chronic obstructive pulmonary disease and bronchiectasis (9 sources) Chronic obstructive lung disease; Translations: [Chronic obstructive pulmonary disease, unspecified] Onset: 01-29-2024 01-29-2024 Chronic Deficiency and other anemia (1 source) Anemia; Translations: [Anemia, unspecified] 09-05-2024 Episodic Esophageal disorders (10 sources) Gastro-esophageal reflux disease with esophagitis; Translations: [Gastroesophageal reflux disease with esophagitis] Onset: 01-29-2024 01-29-2024 Chronic Malaise and fatigue (2 sources) Fatigue; Translations: [Chronic fatigue, unspecified] 2024 Chronic Malaise and fatigue (6 sources) Fatigue; Translations: [Other fatigue] Onset: 2024 [...] Spondylosis; intervertebral disc disorders; other back problems (8 sources) Lumbago with sciatica; Translations: [Lumbago with [...] of mental health and substance abuse codes (8 sources) Personal history of other mental and behavioral disorders; Translations: [Tobacco smoking behavior - finding] Onset: 10-12-2023 01-29-2024 Episodic Results Test Name Value Interpretation Reference Range Facility [facility] 2024 TBH IRON 85 ug/dL 65.0 - 175.0 ug/dL [facility] TBH PERCENT IRON SATURATION 30.1 % [facility] TB TOTAL IRON BINDING CAPACITY 282 ug/dL 250.0 - 450.0 ug/dL [facility] e ALL CBC WITH AUTO DIFFon BASOPHILS ABSOLUTE AUTO 0.1 [facility] Basophils/100 WBC (Bld) 0.6 % 0.2 - 2.0 % [facility] Eosinophils/100 WBC (Bld) 1.9 % 0.9 - 7.0 % [facility] Erythrocyte distribution width (RBC) [Ratio] 12.2 % 11.0 - 15.0 % [facility] Hematocrit (Bld) [Volume fraction] 41.7 % Low 42.0 - 54.0 % [facility] Hemoglobin (Bld) [Mass/Vol] 13.8 g/dL Low 14.0 - 18.0 g/dL [facility] IMMATURE GRANULOCYTES ABS AUTO 0.03 [facility] Immature granulocytes/100 WBC (Bld) 0.4 % 0.0 - 0.5 % [facility] Interpretation and review of laboratory results Abnormal [facility] LYMPHOCYTES ABSOLUTE AUTO 2 [facility] Lymphocytes/100 WBC (Bld) 23.6 % 20.5 - 60.0 % [facility] MCH (RBC) [Entitic mass] 29.4 pg 25.9 - 34.0 pg [facility] MCHC (RBC) [Mass/Vol] 33.1 g/dL 29.9 - 35.2 g/dL [facility] MCV (RBC) [Entitic vol] 88.9 fL 80.0 - 94.0 fL [facility] MONOCYTES ABSOLUTE AUTO 0.6 [facility] Monocytes/100 WBC (Bld) 7.4 % 1.7 - 12.0 % [facility] NEUTROPHILS ABSOLUTE AUTO 5.5 [facility] Neutrophils/100 WBC (Bld) 66.1 % 43.0 - 75.0 % [facility] Platelet mean volume (Bld) [Entitic vol] 10.7 fL 9.5 - [facility].[address] [facility] # 0.2 [facility] PLT 220 [facility] RBC 4.69 [facility] WBC 8.3 [facility] XR ANKLE RT MIN 3 VWSon 11-2 5-2024 XR ANKLE RT MIN 3 VWS XR [...] Mcgee MD on 08/15/2024 3:09 PM Normal [facility] XR FOOT RT MIN 3 VWSon [...] Mcgee MD on 08/15/2024 3:10 PM Normal [facility] ACETAMINOPHENon 10-12-2023 Acetaminophen [Mass/Vol] ug/mL Low 10.0-30.0 [facility] Comment on above: Result Comment: Refe rence ranges are for therapeutic limits. Performed By: #### C ELIEZER, CMP, 54254-2, 3298-7, 4024-6, 5643-2, THYR #### [facility] ([id number]) [address] [place] [address] CBC AND AUTO DIFFon 10-12-19 ABSOLUTE BASOPHIL 0.1 X10E9/L Normal 0.0-0.2 [facility] Comment on above: Performed By: #### C BCA, CMP, 06480-6, 3298-7, 4024-6, 5643-2, THYR #### [facility] ([id number]) [address] [place] [address] ABSOLUTE NEUTROPHIL 9.5 X10E9/L High 1.5-6.6 [facility] Comment on above: Performed By: #### C BCA, CMP, 15468-7, 3298-7, 4024-6, 5643-2, THYR #### [facility] ([id number]) [address] [place] [address]150 Basophils/100 WBC (Bld) 0.6 % Normal [facility] Comment on above: Performed By: #### C BCA, CMP, 83465-2, 3298-7, 4024-6, 5643-2, THYR #### [facility] ([id number]) [address] [place] [address] 40566 Eosinophils (Bld) [#/Vol] 0.2 10*3/uL Normal 0.0-0.4 [facility] Comment on above: Performed By: #### C BCA, CMP, 08061-0, 3298-7, 4024-6, 5643-2, THYR #### [facility] ([id number]) [address] [place] [address] 53368 Eosinophils/100 WBC (Bld) 1.3 % Normal [facility] Comment on above: Performed By: #### C BCA, CMP, 71434-3, 3298-7, 4024-6, 5643-2, THYR #### [facility] ([id number]) [address] [place] [address]11 Erythrocyte distribution width (RBC) [Ratio] 13.9 % Normal 11.5-15.0 [facility] Comment on above: Performed By: #### C BCA, CMP, 94951-0, 3298-7, 4024-6, 5643-2, THYR #### [facility] ([id number]) [address] [place] [address] Hematocrit (Bld) [Volume fraction] 42.8 % Normal 39-49 [facility] Comment on above: Performed By: #### C BCA, CMP, 42769-3, 3298-7, 4024-6, 5643-2, THYR #### [facility] ([id number]) [address] [place] [address] 02386 Hemoglobin (Bld) [Mass/Vol] 14.4 g/dL Normal 13.0-17.0 [facility] Comment on above: Performed By: #### C BCA, CMP, 97367-5, 3298-7, 4024-6, 5643-2, THYR #### [facility] ([id number]) [address] [place] [address] 23157 Lymphocytes (Bld) [#/Vol] 1.9 10*3/uL Normal 1.0-3.5 [facility] Comment on above: Performed By: #### C BCA, CMP, 76815-8, 3298-7, 4024-6, 5643-2, THYR #### [facility] ([id number]) [address] [place] [address] 27928 Lymphocytes/100 WBC (Bld) 15.4 % Normal [facility] Comment on above: Performed By: #### C BCA, CMP, 89324-0, 3298-7, 4024-6, 5643-2, THYR #### [facility] ([id number]) [address] [place] [address] 40723 MCH (RBC) [Entitic mass] 29.2 pg Normal 27-34 [facility] Comment on above: Performed By: #### C BCA, CMP, 25008-3, 3298-7, 4024-6, 5643-2, THYR #### [facility] ([id number]) [address] [place] [address] MCHC (RBC) [Mass/Vol] 33.6 g/dL Normal 32-36 [facility] Comment on above: Performed By: #### C BCA, CMP, 66243-1, 3298-7, 4024-6, 5643-2, THYR #### [facility] ([id number]) [address] [place] [address] MCV (RBC) [Entitic vol] 87 fL Normal 80-100 [facility] Comment on above: Performed By: #### C BCA, CMP, 74412-0, 3298-7, 4024-6, 5643-2, THYR #### [facility] ([id number]) [address] [place] [address] 48419 Monocytes (Bld) [#/Vol] 0.5 10*3/uL Normal 0-0.9 [facility] Comment on above: Performed By: #### C BCA, CMP, 79085-2, 3298-7, 4024-6, 5643-2, THYR #### [facility] ([id number]) [address] [place] [address] 42107 Monocytes/100 WBC (Bld) 4.4 % Normal [facility] Comment on above: Performed By: #### C BCA, CMP, 86992-1, 3298-7, 4024-6, 5643-2, THYR #### [facility] ([id number]) [address] [place] [address] 75726 Neutrophils/100 WBC (Bld) 78.3 % Normal [facility] Comment on above: Performed By: #### C BCA, CMP, 63789-4, 3298-7, 4024-6, 5643-2, THYR #### [facility] ([id number]) [address] [place] [address] 6[address] Platelet mean volume (Bld) [Entitic vol] 7.8 fL Normal 7-12 [facility] Comment on above: Performed By: #### C BCA, CMP, 82954-0, 3298-7, 4024-6, 5643-2, THYR #### [facility] ([id number]) [address] [place] [address] 58180 Platelets (Bld) [#/Vol] 233 10*3/uL Normal 150-450 [facility] Comment on above: Performed By: #### C BCA, CMP, 48535-5, 3298-7, 4024-6, 5643-2, THYR #### [facility] ([id number]) [address] [place] [address] RBC COUNT 4.93 X10E12/L Normal 4.10-5.70 [facility] Comment on above: Performed By: #### C BCA, CMP, 09800-5, 3298-7, 4024-6, 5643-2, THYR #### [facility] ([id number]) [address] [place], [place] [address] WBC (Bld) [#/Vol] 12.1 10*3/uL High 4.0-11.0 [facility] Comment on above: Performed By: #### C BCA, CMP, 65679-9, 3298-7, 4024-6, 5643-2, THYR #### [facility] ([id number]) [address] [place] [address] 11260 COMPREHENSIVE METABOLIC PANE Romero 10-12-2023 Albumin [Mass/Vol] 3.5 g/dL Normal 3.2-5.3 [facility] Comment on above: Performed By: #### C BCA, CMP, 64883-6, 3298-7, 4024-6, 5643-2, THYR #### [facility] ([id number]) [address] [place] [address] 11489 ALP [Catalytic activity/Vol] 39 U/L Normal 39-130 [facility] Comment on above: Performed By: #### C BCA, CMP, 70152-3, 3298-7, 4024-6, 5643-2, THYR #### [facility] ([id number]) [address] [place] [address] 98566 ALT [Catalytic activity/Vol] 13 U/L Normal 0-40 [facility] Comment on above: Performed By: #### C BCA, CMP, 24799-4, 3298-7, 4024-6, 5643-2, THYR #### [facility] ([id number]) [address] [place] [address] 83839 Anion gap [Moles/Vol] 8 mmol/L Normal 5-15 [facility] Comment on above: Performed By: #### C BCA, CMP, 73901-9, 3298-7, 4024-6, 5643-2, THYR #### [facility] ([id number]) [address] [place] [address] 05704 AST [Catalytic activity/Vol] 21 U/L Normal 0-41 [facility] Comment on above: Performed By: #### C BCA, CMP, 66897-0, 3298-7, 4024-6, 5643-2, THYR #### [facility] ([id number]) [address] [place] [address] 98500 Bilirubin [Mass/Vol] 0.4 mg/dL Normal 0.3-1.2 [facility] Comment on above: Performed By: #### C BCA, CMP, 17038-7, 3298-7, 4024-6, 5643-2, THYR #### [facility] ([id number]) [address] [place] [address] 65255 Calcium [Mass/Vol] 8.1 mg/dL Low 8.5-10.5 [facility] Comment on above: Performed By: #### C BCA, CMP, 20401-3, 3298-7, 4024-6, 5643-2, THYR #### [facility] ([id number]) [address] [place] [address] Chloride [Moles/Vol] 111 mmol/L High 98-109 [facility] Comment on above: Performed By: #### C BCA, CMP, 93760-1, 3298-7, 4024-6, 5643-2, THYR #### [facility] ([id number]) [address] [place] [address] CO2 [Moles/Vol] 25 mmol/L Normal 22-32 [facility] Comment on above: Performed By: #### C BCA, CMP, 91694-4, 3298-7, 4024-6, 5643-2, THYR #### [facility] ([id number]) [address] [place] [address] 97799 Creatinine [Mass/Vol] 0.62 mg/dL Normal 0.60-1.30 [facility] Comment on above: Result Comment: METH OD TRACEABLE TO IDMS STANDARD Performed By: #### C BCA, CMP, 88070-2, 3298-7, 4024-6, 5643-2, THYR #### [facility] ([id number]) [address] [place] [address]44 eGFR (CKD-EPI) NON-RACE DEPENDENT >90 Normal >59 [facility] Comment on above: Result Comment: Reported eGFR is based on the CKD-EPI 2020 equation that does not use a race coefficient. Performed By: #### C BCA, CMP, 02434-1, 3298-7, 4024-6, 5643-2, THYR #### [facility] ([id number]) [address] [place] [address] Glucose [Mass/Vol] 84 mg/dL Normal 65-99 [facility] Comment on above: Performed By: #### C BCA, CMP, 83729-1, 3298-7, 4024-6, 5643-2, THYR #### [facility] ([id number]) [address] [place] [address] Potassium [Moles/Vol] 3.8 mmol/L Normal 3.5-5.0 [facility] Comment on above: Performed By: #### C BCA, CMP, 36577-8, 3298-7, 4024-6, 5643-2, THYR #### [facility] ([id number]) [address] [place] [address] 00816 Protein [Mass/Vol] 5.5 g/dL Low 6.0-8.0 [facility] Comment on above: Performed By: #### C BCA, CMP, 44672-4, 3298-7, 4024-6, 5643-2, THYR #### [facility] ([id number]) [address] [place] [address] 76247 Sodium [Moles/Vol] 144 mmol/L Normal 134-146 [facility] Comment on above: Performed By: #### C BCA, CMP, 19996-6, 3298-7, 4024-6, 5643-2, THYR #### [facility] ([id number]) [address] [place] [address] 13212 Urea nitrogen [Mass/Vol] 11 mg/dL Normal 5-23 [facility] Comment on above: Performed By: #### C BCA, CMP, 55778-4, 3298-7, 4024-6, 5643-2, THYR #### [facility] ([id number]) [address] [place] [address] 37064 DRUG SCREEN, URINEon 024 AMPHETAMINE/METHAMP Negative Normal NEG [facility] Comment on above: Result Comment: AMPH /METH screening cut off = 1000 ng/mL Performed By: #### D NASH #### [facility] ([id number]) [address] [place] [address] BARBITURATES Negative Normal NEG [facility] Comment on above: Result Comment: Deborah iturates screening cut off value = 200 ng/mL Performed By: #### D NASH #### [facility] ([id number]) [address] [place] [address] BENZODIAZEPINES Negative Normal NEG [facility] Comment on above: Result Comment: Juan F odiazepines screening cut off value = 200 ng/mL Performed By: #### D NASH #### [facility] ([id number]) [address] [place] [address] CANNABINOIDS Positive Abnormal NEG [facility] Comment on above: Result Comment: Conf irmation available upon request. Cannabinoids/THC screening cut off value = 50 ng/mL Performed By: #### D NASH #### [facility] ([id number]) [address] [place] [address] COCAINE METABOLITE Negative Normal NEG [facility] Comment on above: Result Comment: Coca ine screening cut off value = 300 ng/mL Performed By: #### D NASH #### [facility] ([id number]) [address] [place] [address] ECSTASY Negative Normal NEG [facility] Comment on above: Result Comment: Ecst asy screening cut off value = 500 ng/mL This report is intended for use in clinical monitoring or management of patients. Performed By: #### D NASH #### [facility] ([id number]) [address] [place] [address] METHADONE Negative Normal NEG [facility] Comment on above: Result Comment: Meth adone screening cut off value = 300 ng/mL. Performed By: #### D NASH #### [facility] ([id number]) [address] [place] [address]752 OPIATES Negative Normal NEG [facility] Comment on above: Result Comment: Opia dom screening cut off value = 300 ng/mL NOTE: This test is used for the detection of codeine, hydrocodone (>1000 ng/mL), morphine and hydromorphone (>900 ng/mL) in urine. Performed By: #### D NASH #### [facility] ([id number]) [address] [place] [address] 31425 OXYCODONE Negative Normal NEG [facility] Comment on above: Result Comment: Oxyc odone screening cut off value = 300 ng/mL NOTE: This test is used for the detection of oxycodone and oxymorphone in urine. Performed By: #### D NASH #### [facility] ([id number]) [address] [place] [address] 93788 PHENCYCLIDINE Negative Normal NEG [facility] Comment on above: Result Comment: Phen cyclidine screening cut off value = 25 ng/mL Performed By: #### D NASH #### [facility] ([id number]) [address] [place] [address] 85082 Ethanol [Mass/Vol]on 024 ETHANOL 0.17 g/dL High 0.00-0.08 [facility] Comment on above: Result Comment: This report is intended for use in clinical monitoring or management of patients. Performed By: #### C BCA, CMP, 32358-9, 3298-7, 4024-6, 5643-2, THYR #### [facility] ([id number]) [address] [place] [address] 14485 MAGNESIUMon 10-12-2023 Magnesium [Mass/Vol] 1.8 mg/dL Normal 1.8-2.6 [facility] Comment on above: Performed By: #### C BCA, CMP, 84816-6, 3298-7, 4024-6, 5643-2, THYR #### [facility] ([id number]) [address] [place] [address] Salicylates [Mass/Vol]on SALICYLATE <2.5 Normal 2.0-25.0 [facility] Comment on above: Result Comment: Refe rence ranges are for therapeutic limits. Performed By: #### C BCA, CMP, 30159-3, 3298-7, 4024-6, 5643-2, THYR #### [facility] ([id number]) [address] [place] [address] 77695 THYROID PROFILEon 10-12-2023 Free T4 [Mass/Vol] 0.97 ng/dL Normal 0.61-1.60 [facility] Comment on above: Performed By: #### C BCA, CMP, 21318-8, 3298-7, 4024-6, 5643-2, THYR #### [facility] ([id number]) [address] [place] [address] 01259 TSH 1.12 uIU/mL Normal 0.49-4.67 [facility] Comment on above: Performed By: #### C BCA, CMP, 46549-2, 3298-7, 4024-6, 5643-2, THYR #### [facility] ([id number]) [address] [place] [address] 90210 URINALYSISon 10-12-2023 Bilirubin Ql (U) Negative Normal NEG [facility] Comment on above: Performed By: #### U A #### [facility] ([id number]) [address] [place] [address] 84937 BLOOD/HGB Negative Normal NEG [facility] Comment on above: Performed By: #### U A #### [facility] ([id number]) [address] [place] [address] 21600 Color (U) YELLOW Normal YELLOW [facility] Comment on above: Performed By: #### U A #### [facility] ([id number]) [address] [place] [address] Glucose Ql (U) Negative Normal NEG [facility] Comment on above: Performed By: #### U A #### [facility] ([id number]) [address] [place] [address] Ketones Ql (U) Trace Abnormal NEG [facility] Comment on above: Performed By: #### U A #### [facility] ([id number]) [address] [place] [address] Leukocyte esterase Test strip Ql (U) Negative Normal NEG [facility] Comment on above: Performed By: #### U A #### [facility] ([id number]) [address] [place] [address] 96792 Nitrite Ql (U) Negative Normal NEG [facility] Comment on above: Performed By: #### U A #### [facility] ([id number]) [address] [place] [address] pH (U) 7.0 [pH] Normal 5.0-8.5 [facility] Comment on above: Performed By: #### U A #### [facility] ([id number]) [address] [place] [address] 21207 Protein Ql (U) Negative Normal NEG [facility] Comment on above: Performed By: #### U A #### [facility] ([id number]) [address] [place] [address] Specific gravity (U) [Rel density] 1.010 Normal 1.003-1.035 [facility] Comment on above: Performed By: #### U A #### [facility] ([id number]) [address] [place] [address] TURBIDITY CLEAR Normal CLEAR [facility] Comment on above: Performed By: #### U A #### [facility] ([id number]) [address] [place] [address] Urobilinogen Qn (U) 0.2 {Violet'U}/dL Normal <1.1 [facility] Comment on above: Performed By: #### U A #### [facility] ([id number]) [address] [place] [address] MR BRAIN WO CONTon 4 MR BRAIN [...] Mcgee MD on 09/22/2023 7:55 PM Normal [facility] Vital Signs Date Time Vital Sign Value Performing Clinician Gege olsen 2024 15:14-0500 Body height 167.6 cm Julia Arriaza NP Work Phone: [facility] 2024 15:14-0500 Body mass index (BMI) [Ratio] 31.76 kg/m2 Julia Arriaza APPRENTICE PAINTER HAND Work Phone: [facility] 2024 15:14-0500 Body temperature 97.2 [degF] Julia Nealk APPRENTICE PAINTER HAND Work Phone: [facility] 2024 15:14-0500 Body weight 89.27 kg Julia Nealk APPRENTICE PAINTER HAND Work Phone: [facility] 2024 15:14-0500 Diastolic blood pressure 78 mm[Hg] Julia Ortegatrick APPRENTICE PAINTER HAND Work Phone: [facility] 2024 15:14-0500 Heart rate 71 /min Julia Ortegatrick APPRENTICE PAINTER HAND Work Phone: [facility] 2024 15:14-0500 Respiratory rate 16 /min Julia Ortegatrick APPRENTICE PAINTER HAND Work Phone: [facility] 2024 15:14-0500 SaO2% (BldA) [Mass fraction] 99 % Julia Ortegatrick APPRENTICE PAINTER HAND Work Phone: [facility] 2024 15:14-0500 Systolic blood pressure 120 mm[Hg] Julia Ortegatrick APPRENTICE PAINTER HAND Work Phone: [facility] Encounters Encounter Date Encounter Type Care Provider Facility Start: 10-03-2024 End: 10-03-2024 [facility] Result Encounter Julia Ortegatrick APPRENTICE PAINTER HAND Work Phone: [facility] External Department Unsolicited Start: 10-03-2024 End: 10-03-2024 Clinisync Result Encounter Julia Ortegatrick APPRENTICE PAINTER HAND Work Phone: [facility] External Department Unsolicited Start: 09-05-2024 End: 09-05-2024 Orders Only Julia Ortegatrick APPRENTICE PAINTER HAND Work Phone: [facility] Comment on above: Anemia, unspecified type (Primary Dx) Start: 09-03-2024 End: 09-03-2024 Clinisync Result Encounter Julia Ortegatrick APPRENTICE PAINTER HAND Work Phone: [facility] External Department Unsolicited Start: 09-03-2024 End: 09-03-2024 Clinisync Result Encounter Julia Arriaza APPRENTICE PAINTER HAND Work Phone: [facility] External Department Unsolicited Start: 2024 End: 2024 Initial preventive medicine new patient 38-64yrs Julia Arsalan APPRENTICE PAINTER HAND Work Phone: [facility] Comment on above: Encounter for medica l examination to establish care (Primary Dx); Chronic obstructive pulmonary disease, unspecified COPD type (CMS/HCC); Gastroesophageal reflux disease with esophagitis, unspecified whether hemorrhage; Back pain of lumbosacral region with sciatica; Intermittent chest pain; Chronic fatigue Start: 2024 End: 2024 ambulatory JULIA ARRIAZA Not Available Start: 2024 End: 2024 Bamboo flowsheet Julia Arsalan APPRENTICE PAINTER HAND Work Phone: [facility] Start: 2024 End: 2024 Bamboo flowsheet Julia Arsalan APPRENTICE PAINTER HAND Work Phone: [facility] Start: 2024 End: 2024 Patient encounter status Julia Arsalan APPRENTICE PAINTER HAND Work Phone: [facility] Start: 2024 End: 09-05-2024 Refill Julia Arriaza APPRENTICE PAINTER HAND Work Phone: [facility] Comment on above: Gastroesophageal ref lux disease with esophagitis, unspecified whether hemorrhage Start: 08-15-2024 End: 08-15-2024 Emergency department patient visit NO PCP NO PCP [facility] Start: 02-10-2024 End: 02-10-2024 Emergency department patient visit NO PCP NO PCP [facility] Start: 02-10-2024 End: 02-10-2024 Emergency department patient visit JANET GARCIA [facility] Start: 01-29-2024 End: 01-29-2024 ambulatory SILAS LIMON Not Available Start: 10-12-2023 End: 10-13-2023 Emergency department patient visit [facility] Start: 10-09-2023 End: 10-09-2023 ambulatory [facility] Start: 09-22-2023 End: 09-23-2023 ambulatory [facility] Start: 09-11-2023 End: 09-11-2023 ambulatory [facility] Procedures Date Procedure Procedure Detail Performing Clinician Start: 10-03-2024 METRO IRON AND TIBC Gina hermann Arriaza APPRENTICE PAINTER HAND Work Phone: Start: 09-03-2024 ALL CBC WITH AUTO DIFF Julia Arriaza APPRENTICE PAINTER HAND Work Phone: Plan of Treatment Date Care [...] 2024 3:30 PM EST Office Visit [facility] [address] [place] [address] Julia Arriaza NP [address] [place] [address] Arrived [facility] Comment on above: Arrived Start: 2024 End: 2025 25-hydroxyvitamin D3 [Mass/volume] in Serum or Plasma Vitamin D 25 hydroxy Lab Routine Chronic fatigue Expected: 2024 (Approximate), Expires: 2025 [facility] Comment on above: Expected: 2024 (Approximate), Expires: 2025 Start: 2024 End: 2025 CBC W Auto Differential panel - Blood CBC and differential Lab Routine Encounter for medical examination to establish care Expected: 2024 (Approximate), Expires: 2025 [facility] Comment on above: Expected: 2024 (Approximate), Expires: 2025 Start: 2024 End: 2025 Cobalamin (Vitamin B12) [Mass/volume] in Serum or Plasma Vitamin B12 Lab Routine Chronic fatigue Expected: 2024 (Approximate), Expires: 2025 [facility] Comment on above: Expected: 2024 (Approximate), Expires: 2025 Start: 2024 End: 2025 Comprehensive metabolic 2000 panel - Serum or Plasma Comprehensive metabolic panel Lab Routine Encounter for medical examination to establish care Expected: 2024 (Approximate), Expires: 2025 [facility] Comment on above: Expected: 2024 (Approximate), Expires: 2025 Start: 2024 End: 2025 ECG 12 lead ECG 12 lead ECG Routine Intermittent chest pain Expected: 2024 (Approximate), Expires: 2025 [facility] Comment on above: Expected: 2024 (Approximate), Expires: 2025 Start: 2024 End: 2025 Ferritin [Mass/volume] in Serum or Plasma Ferritin Lab Routine Chronic fatigue Expected: 2024 (Approximate), Expires: 2025 [facility] Comment on above: Expected: 2024 (Approximate), Expires: 2025 Start: 2024 End: 2025 Hemoglobin A1c/Hemoglobin.total in Blood Hemoglobin A1c Lab Routine Encounter for medical examination to establish care Expected: 2024 (Approximate), Expires: 2025 [facility] Comment on above: Expected: 2024 (Approximate), Expires: 2025 Start: 2024 End: 2025 Iron + transferrin + TIBC Iron + transferrin + TIBC Lab Routine Chronic fatigue Expected: 2024 (Approximate), Expires: 2025 [facility] Comment on above: Expected: 2024 (Approximate), Expires: 2025 Start: 2024 End: 2025 Lipid 1996 panel - Serum or Plasma Lipid panel Lab Routine Encounter for medical examination to establish care Expected: 2024 (Approximate), Expires: 2025 [facility] Comment on above: Expected: 2024 (Approximate), Expires: 2025 Start: 2024 End: 2025 TSH W/REFLEX TO FT4 TSH W/REFLEX TO FT4 Lab Routine Encounter for medical examination to establish care Expected: 2024 (Approximate), Expires: 2025 [facility] Work Phone: Comment on above: Expected: 2024 (Approximate), Expires: 2025 Start: 2024 End: 2025 XR Lumbar spine 4 Views XR LUMBAR SPINE AP/LAT/FLEX/EXT/OBLIQUE S Imaging Routine Back pain of lumbosacral region with sciatica Expected: 2024, Expires: 2025 [facility] Comment on above: Expected: 2024 , Expires: 2025 Start: 05-22-2024 Influenza vaccination Influenza Vacc ine (#1) [facility] Start: 1975 Screening for malign ant neoplasm of colon [facility] Payers Date Payer Category Payer Private Health Insurance [facility] [id number] 2024 Private Health Insurance [id number] 2024 Medicaid [id number] 2024 Worker's Compensation [id number] 2022 Medicaid [id number] 2021 Unknown [id number] 1975 Unknown [id number] 1975 Unknown [id number] 1973 Unknown [id number] .[id number] 1973 Unknown [id number] .[id number] 1973 Unknown [id number] .[id number] 1973 Unknown [id number] .1285 1973 Unknown [id number] .1286 1973 Unknown [id number] .1259 1975 Unknown [id number] .1259 Social History Date Type Detail Facility [facility] consumption [facility] Start: 1975 Sex assigned at Not on file [facility] Start: 2024 Gender identity Not on file [facility] Start: 2024 Tobacco smoking stat [facility] Ex-smoker [facility] History of tobacco [...] History of Present illness Narrative 2024 Julia Arriaza, APPRENTICE PAINTER HAND - 2024 3:57 PM Marychuy Arriaza NP - 2024 3:51 PM Marychuy Arriaza, APPRENTICE PAINTER HAND - 2024 3:30 PM EST Note Date [...] EC tablet COPD (chronic obstructive pulmonary disease) (CMS/HCC) (Chronic) Relevant Medications tiotropium-olodaterol (Stiolto Respimat) 2.5-2.5 [...] day. Consider tracking your food intake on [facility] or [facility] Water: Increase water intake; GOAL [...] ECG 12 lead documented in this encounter [facility] Instructions 2024 Patient Instructions Note Date & [...] sleep per night. documented in this encounter [facility] Evaluation note Note Date & Type [...] unspecified type- Primary documented in this encounter [facility] Summary Purpose Family History No Family [...] CREATED AUTHOR 10/11/2023 [facility] DATE CREATED AUTHOR AUTHOR'S ORGANIZ ATION 10/16/2023 [facility] DATE CREATED AUTHOR AUTHOR'S ORGANIZ ATION 08/18/2024 [facility] DATE CREATED AUTHOR AUTHOR'S ORGANIZ ATION 09/04/2024 [facility] Care Teams (unrecognized sec tion and content) Hat Binder Relationship Specialty Start Date End Date Desmond Coffman MD [address] [place] [phone] PCP - General Family Medicine 07/25/24 Julia Arriaza NP [address] [place] [phone] Nurse Practitioner Family Medicine 07/25/24 Hat Binder Relationship Specialty Start Date End Date Desmond Coffman MD [address] [place] [phone] PCP - General Family Medicine 07/25/24 Julia Arriaza NP [address] [place] [phone] Nurse Practitioner Family Medicine 07/25/24 Hat Binder Relationship Specialty Start Date End Date Desmond Coffman MD [address] [place] [phone] PCP - General Family Medicine 07/25/24 Julia Arriaza NP [address] [place] [address] Nurse Practitioner Family Medicine 07/25/24 Hat Binder Relationship Specialty Start Date End Date Desmond Coffman MD [address] [place] [phone] PCP - General Family Medicine 07/25/24 Julia Arriaza NP [address] [place] [address] Nurse Practitioner Family Medicine 07/25/24 Hat Binder Relationship Specialty Start Date End Date Desmond Coffman MD [address] [place] [phone] PCP - General Family Medicine 07/25/24 Julia Arriaza NP [address] [place] [phone] Nurse Practitioner [facility] Medicine 07/25/24 Reason for Visit (unrecogniz ed [...] BE BASED ON THE PRIMARY CLINICAL RECORDS. [employer] [facility]. provides no warranty or guarantee of the accuracy or completeness of information in this document.
--- NOTE | 2024-10-04 18:18 | XR_ITS ---
The [address] [address] Patient Name: RICK MCBRIDE MRN: [id number] date: 1975 Sex: M Assigned Patient Location: ED.MAIN Current Patient Location: ER Accession/Order Number: [id number] Exam Date: 10/04/2024 18:34 Report Date: 10/04/2024 18:49 At the request of: DANTE GEORGE Procedure: XR finger LT min 2V Exam: Radiographs: XR finger LT min 2V Reason for exam: laceration Comparison: None XR/XR finger LT min 2V IMPRESSION: Mild degenerative changes. Left finger radiographs are otherwise unremarkable. Electronically authenticated by: CARTER CRANE Date: 10/04/2024 18:49
[2024-10-04] MEDS: BACITRACIN 0.9 GM PACKET 1 PACKET TOPICAL (18:37)
[2024-10-04] MEDS: LIDOCAINE HCL 1% 100 MG/10 ML MDV INJ (18:37)
[2024-10-04] MEDS: ADACEL DIPH,PERTUSS(ACELL),TET VAC/PF 0.5 ML ADULT SYRINGE IM (18:38)
[2024-10-04] MEDS: HYDROCODONE/ACET 5-325 MG TABLET 1 TAB PO (18:38)
--- NOTE | 2024-10-04 19:01 | ED_ITS ---
HPI HPI - General Adult General Chief complaint: Skin/Abscess/Foreign Body Stated complaint: Laceration Time Seen by Provider: 10/04/24 18:08 Source: patient Mode of arrival: walk-in History of Present Illness HPI narrative: Patient is a 49-year-old male who presents to the emergency department for a laceration to the left third finger as well as a superficial laceration to the left second finger. He states he was at work using a band saw when he accidentally lacerated the fingers. Unknown last tetanus. Bleeding is well- controlled. He is right-hand dominant. No other associated injuries. Related Data Previous Rx's ?Medication ?Instructions ?Recorded cephalexin 500 mg capsule 500 mg PO Q8H 10 days #30 caps 10/04/24 hydrocodone 5 mg-acetaminophen 325 1 tab PO Q6H PRN pain 3 days #12 10/04/24 mg tablet tabs Allergies Allergy/AdvReac Type Severity Reaction Status Date / Time Iodinated Contrast Media Allergy Severe Verified 01/22/24 14:51 Opioid HPI Opioid Management Most Recent Opioid Data: Last Pain Scale 10 10/04/24 18:47 10/04/24 Last MAR Pain Assessment 10/04/24 18:38 Ur Phencyclidine Scrn Negative (NEGATIVE) 01/22/24 17:05 05/0 12/12 Review of Systems ROS Constitutional Denies: fever or chills Ears, nose, mouth, and throat Denies: throat pain Cardiovascular Denies: chest pain Respiratory Denies: shortness of breath or cough Gastrointestinal Denies: nausea or vomiting Musculoskeletal Reports: extremity pain; Denies: back pain or neck pain Integumentary/Breast Denies: rash Neurological Denies: numbness in extremities or weakness in extremities Hematologic/Lymphatic Denies: easy bruising or easy bleeding Exam Narrative Exam Narrative: Gen.: Awake, alert, in no distress Head: Normocephalic, atraumatic ENT: Moist mucous membranes Respiratory: No respiratory distress Extremities: Superficial 2 cm laceration noted over the dorsum of the left second finger, distal phalanx. No deep laceration or bleeding noted. No fingernail involvement. Left third finger with laceration noted to the distal tip of the finger with the radial aspect of the distal corner of the fingernail lacerated. No bony exposure. Laceration extends approximately 1.5 cm. No laceration over the DIP or PIP joints. Psych: Normal mood and affect Neuro: No focal neuro deficit Skin: Warm, dry Constitutional Vital Signs, click to edit/add: Last Vital Signs Temp 98.2 F 10/04/24 18:12 Pulse 88 10/04/24 18:12 Resp 18 10/04/24 18:12 BP 158/94 H 10/04/24 18:12 Pulse Ox 98 10/04/24 18:12 O2 Del Method Room Air 10/04/24 18:12 Course Vital Signs Vital signs: Vital Signs Temperature 98.2 F 10/04/24 18:12 Pulse Rate 88 10/04/24 18:12 Respiratory Rate 18 10/04/24 18:12 Blood Pressure 158/94 H 10/04/24 18:12 Pulse Oximetry 98 10/04/24 18:12 Oxygen Delivery Method Room Air 10/04/24 18:12 Temperature 98.2 F 10/04/24 18:12 Pulse Rate 88 10/04/24 18:12 Respiratory Rate 18 10/04/24 18:12 Blood Pressure 158/94 H 10/04/24 18:12 Pulse Oximetry 98 10/04/24 18:12 Oxygen Delivery Method Room Air 10/04/24 18:12 Medical Decision Making MDM Narrative Medical decision making narrative: Tetanus updated, patient treated with [place] for pain. X-rays with no evidence of fracture. Laceration was repaired without difficulty. Please see procedure note for details. Patient will need to follow-up with occupational health in 8 to 10 days for suture removal and reevaluation. Return to the ER if symptoms change or worsen. Patient placed on Keflex and a short course of analgesics for home. Neurovascularly intact at discharge. Laceration repair: Done under sterile conditions. The use of Shur-Clens prep the area. Digital block with lidocaine 1% was used, approximately 5 cc. The wound was irrigated copiously with normal saline. The wound was explored there was no evidence of foreign material. The laceration was approximated with 4-0 nylon. 2 simple interrupted sutures were placed to tack the skin together including a suture through the fingernail. Patient tolerated the procedure well. The patient was neurovascularly intact post. the patient had bacitracin applied to the laceration and a dry sterile dressing was place. The patient will need to follow-up in the next 8-10 days for removal SUPERVISED APC VISIT, PHYSICIAN ATTESTATION: Based on the medical record the care appears appropriate. ? Imaging Data XR finger: Attestation: I have reviewed the pertinent imaging results. Radiologist's impression: ITS Impressions Finger X-Ray 10/04/24 18:18 IMPRESSION: Mild degenerative changes. Left finger radiographs are otherwise unremarkable. Electronically authenticated by: CARTER CRANE Date: 10/04/2024 18:49 Discharge Plan Discharge Chief Complaint: Skin/Abscess/Foreign Body Clinical Impression: Laceration of finger of left hand Patient Disposition: Home, Self-Care Time of Disposition Decision: 19:00 Condition: Good Prescriptions / Home Meds: New hydrocodone-acetaminophen 5-325 mg tablet 1 tab PO Q6H PRN (Reason: pain) 3 Days Qty: 12 0RF Rx Instructions: DX: S61.219A cephalexin 500 mg capsule 500 mg PO Q8H 10 Days Qty: 30 0RF Print Language: Urdu Instructions: Finger Laceration (ED) Additional Instructions: Sutures removed in 8-10 days with occupational health Referrals: [facility] [Outside] - As soon as possible DENYS DE LEON [Primary Care Provider] - 1 week
== END 2024-10-04 19:01 | disposition home or self-care (01) ==
PROVIDERS: Emergency Provider Emergency Medicine
DX: S61.313A Laceration without foreign body of left middle finger with damage to nail, initial encounter (principal); S61.211A Laceration without foreign body of left index finger without damage to nail, initial encounter; W31.2XXA Contact with powered woodworking and forming machines, initial encounter; Z23 Encounter for immunization
CPT/HCPCS: 12001; 73140; 90471; 90715; 99284

== ENCOUNTER 2024-10-17 10:18 | Outpatient (OUT) | payer OTHER, SELFPAY ==
--- NOTE | 2024-10-17 11:50 | P.CN_ITS ---
Consult Note: HPI Data of Consult Patient: new to practice Consult date: 10/17/24 Requesting Physician: Aurora Adams MD Primary Care Provider: DENYS DE LEON Consult Narrative Reason for consult: low back, right leg pain Narrative: 49yom who presents for evaluation. longstanding low back history, notes symptoms into right leg to foot. lumbar xr reviewed, which shows multilevel degnerative changes. has continued in a series of provider directed home exercises >6 weeks, without lasting benefit. uses tylenol and motrin as needed. cc:: CC: Aurora Adams MD Review of Systems ROS Status of ROS 10 or more systems reviewed and unremark able except as noted in history and below Meds Home Medications and Allergies Home Medications ?Medication ?Instructions ?Recorded ?Confirmed ?Type cephalexin 500 mg capsule 500 mg PO Q8H 10 days #30 caps 10/04/24 Rx hydrocodone 5 mg-acetaminophen 325 1 tab PO Q6H PRN pain 3 days #12 10/04/24 Rx mg tablet tabs Allergies Allergy/AdvReac Type Severity Reaction Status Date / Time Iodinated Contrast Media Allergy Severe Verified 01/22/24 14:51 Exam Narrative Exam Narrative: Psych-alert and oriented x 3. Attentive and appropriate, constitutionally normal, displays normal mood and affect per situation. There are no obvious deficits in memory, reasoning, or intellect.? Skin-no obvious rashes, bruising, erythema noted to the patient's area of pain.? Extremities- extremities are warm with minimal edema and palpable pulses. Lumbar-tenderness to palpation noted in the lumbar spine and paraspinal musculature. Pain is elicited with flexion, extension, and lateral rotation of the lumbar spine. Range of motion is diminished with these motions. Facet loading maneuvers are positive.? Strength-noted to be unremarkable Sensory-no notable sensory deficits in the bilateral lower extremities to touch or pinprick in all dermatomal distributions with the exception to decreased sensation to the right L3, 4, 5 dermatomal distribution Coordination remains intact.? Gait remains non-antalgic. Assessment and Plan Assessment and Plan (1) Lumbar stenosis with neurogenic claudication: (2) Lumbar spondylosis: Plan 49yom who presents for evaluation. failed conservative measures, as noted. given symptoms and exam, would like him to undergo lumbar mri without contrast for further info. he is in agreement. meds reviewed. will trial celebrex 200mg bid prn. also notes some right foot pain after a previous fracture many years ago. will refer to Dr. Jack. follow up after imaging.
== END 2024-10-17 10:19 | disposition home or self-care (01) ==
PROVIDERS: Visit Provider Anesthesiology
DX: M48.062 Spinal stenosis, lumbar region with neurogenic claudication (principal); M47.816 Spondylosis without myelopathy or radiculopathy, lumbar region
CPT/HCPCS: G0463

== ENCOUNTER 2024-11-07 09:50 | Emergency (ER) | payer OTHER, SELFPAY ==
[2024-11-07 10:03] VITALS: BP 123/77; PULSE 75; TEMP 37.7; O2SAT 99; BMI 32.4
--- NOTE | 2024-11-07 10:10 | XR_ITS ---
The [address] [address] Patient Name: RICK MCBRIDE MRN: [id number] date: 1975 Sex: M Assigned Patient Location: ER Current Patient Location: ED.MAIN Accession/Order Number: [id number] Exam Date: 11/07/2024 10:30 Report Date: 11/07/2024 12:25 At the request of: KIRSTEN OVALLES Procedure: XR chest 2V EXAM: XR chest 2V HISTORY: cough COMPARISON: None. TECHNIQUE: PA and lateral views of the chest performed. FINDINGS: The trachea is midline. The heart size is normal. The cardiac mediastinal silhouette and hilar shadows are unremarkable. There is mild opacity at the left lung base which most likely is secondary to atelectasis with infiltrate less likely. There is no pleural effusion or pulmonary vascular congestion. There is no pneumothorax. There is an old healed fracture of the right seventh rib. XR/XR chest 2V IMPRESSION: There is mild opacity at the left lung base which most likely is secondary to atelectasis with infiltrate less likely. Electronically authenticated by: EHSAN NOLAN Date: 11/07/2024 12:25
--- OUTSIDE RECORDS SUMMARY | 2024-11-07 10:17 | XMS_ITS | CCD ---
Author Organization [facility] Inform ion Partnership [facility] Care Team Providers Care Car Restorer Name Role Phone DALJIT LEON Attending Unavailable ISTEPDALJIT EPSTEIN Referring Unavailable ISTEPHAN, DALJIT A Primary Care Unavailable ISTEPLUCIAN, DALJIT A Attending Unavailable ISTEPLUCIAN, DALJIT A Referring Unavailable ISTEPLUCIAN, DALJIT A Primary Care Unavailable ISTEPLUCIAN, DALJIT A Attending Unavailable ISTEPLUCIAN, DALJIT A Referring Unavailable ISTEPLUCIAN, DALJIT A Primary Care Unavailable ISMARCE, DALJIT A Primary Care Unavailable CHEL SAMUEL Attending Unavailable NITA MEZA Consulting Unavailable NO PCP, NO PCP Primary Care Unavailable JANET GARCIA Attending Unavailable JANET GARCIA Attending Unavailable JANET GARCIA Referring Unavailable NO PCP, NO PCP Primary Care Unavailable NO PCP, NO PCP Primary Care Unavailable Desmond Coffman MD Primary Care Provider Arsalan PHYSICAL THERAPY NURSE, Julia Unavailable JULIA ARRIAZA Attending UnavailSILAS Mckeon Attending Unavailable JULIA ARRIAZA Attending Unavailshivam Adams MD, Aurora Bhatia Attending Unavailable Allergies Allergy Classification Reported Allergen(s) Allergy Type Date of Onset Reaction(s) Facility (14 sources) IODINATED CONTRAST MEDIA; Translations: [IODINATED CONTRAST MEDIA] Propensity to adverse reactions to drug (disorder) 3 [facility] (3 sources) GADOLINIUM-CONTA INING CONTRAST MEDIA; Translations: [GADOLINIUM-CONT AINING CONTRAST MEDIA] Propensity to adverse reactions to drug (disorder) 3 [facility] Medications Current Medications Medication Drug Class(es) Dates Sig (Normalized) Sig (Original) 10 actuat olodaterol 0.0025 mg/actuat / tiotropium 0.0025 mg/actuat inhalation spray (13 sources) Anticholinergic, beta2-Adrenergic Agonist Start: 01-29-2024 End: 2024 tiotropium-olodaterol (Stiolto Respimat) 2.5-2.5 MCG/ACT aerosol solution inhaler Indications: Chronic obstructive pulmonary disease, unspecified COPD type (CMS/HCC) Inhale 2 Inhalation Daily 4 g 2 2024 Active omeprazole 20 mg delayed release oral capsule (16 sources) Proton Pump Inhibitor Start: 09-05-2024 End: 10-17-2024 take 1 capsule by mouth before mealtime omeprazole (PriLOSEC) [address] capsule Indications: Gastroesophageal reflux disease with esophagitis, unspecified whether hemorrhage Take 1 capsule (20 mg) by mouth in the morning. Take before meals. Do not crush or chew.. 90 capsule 3 10/17/2024 Active Start: 01-29-2024 End: 2025 take 1 [...] Chronic Chronic obstructive pulmonary disease and bronchiectasis (13 sources) Chronic obstructive lung disease; Translations: [Chronic obstructive pulmonary disease, unspecified] Onset: 01-29-2024 01-29-2024 Chronic Deficiency and other anemia (1 source) Anemia; Translations: [Anemia, unspecified] 09-05-2024 Episodic Esophageal disorders (16 sources) Gastro-esophageal reflux disease with esophagitis; Translations: [Gastroesophageal reflux disease with esophagitis] Onset: 01-29-2024 01-29-2024 Chronic Malaise and fatigue (2 sources) Fatigue; Translations: [Chronic fatigue, unspecified] 2024 Chronic Malaise and fatigue (10 sources) Fatigue; Translations: [Other fatigue] Onset: 2024 2024 Episodic Mood disorders (2 sources) Major depressive disorder, single episode, severe without psychotic features; Translations: [Depression] Onset: 09-02-2023 Chronic Nonspecific chest pain (2 sources) Chest pain; Translations: [Chest pain, unspecified] 2024 Episodic Open wounds of extremities (6 sources) Laceration without foreign body of left middle finger without damage to nail, initial encounter; Translations: [Laceration of finger] Onset: 02-10-2024 10-17-2024 Episodic Other gastrointestinal disorders (1 source) Diarrhea Onset: 10-09-2023 Episodic Other gastrointestinal disorders (1 source) Diarrhea, unspecified; Translations: [Diarrhea, unspecified] Onset: 09-11-2023 Episodic Other non-traumatic joint disorders (2 sources) Arthropathy of spinal facet joint; Translations: [Spondylosis without myelopathy or radiculopathy, site unspecified] 10-05-2024 Chronic Residual codes; unclassified (2 sources) Other amnesia; Translations: [Other amnesia] Onset: 09-02-2023 Episodic Spondylosis; intervertebral disc disorders; other back problems (2 sources) Spondylosis; Translations: [Spondylosis, unspecified] 10-05-2024 Chronic Spondylosis; intervertebral disc disorders; other back problems (12 sources) Lumbago with sciatica; Translations: [Lumbago with sciatica, unspecified side] Onset: 2024 2024 Episodic Sprains and strains (1 source) Unspecified sprain of left foot, initial encounter; Translations: [Unspecified sprain of left foot, initial encounter] Onset: 08-15-2024 Episodic Unclassified (1 source) Med Refill Onset: 09-11-2023 Unclassified (1 source) Foot Injury Onset: 08-15-2024 Past or Other Problems Problem Classification Problem Date Documented Da te Episodic/Chronic Other injuries and conditions due to external causes (1 source) Laceration - injury Onset: 02-10-2024 Episodic Screening and history of mental health and substance abuse codes (12 sources) Personal history of other mental and behavioral disorders; Translations: [Tobacco smoking behavior - finding] Onset: 10-12-2023 01-29-2024 Episodic Results Test Name Value Interpretation Reference Range Facility [facility] 2024 TB IRON 85 ug/dL 65.0 - 175.0 ug/dL [facility] TBH PERCENT IRON SATURATION 30.1 % [facility] TOTAL IRON BINDING CAPACITY 282 ug/dL 250.0 - 450.0 ug/dL [facility] ALL CBC WITH AUTO DIFFon BASOPHILS ABSOLUTE AUTO 0.1 [facility] Basophils/100 WBC (Bld) 0.6 % 0.2 - 2.0 % [facility] Eosinophils/100 WBC (Bld) 1.9 % 0.9 - 7.0 % [facility] Erythrocyte distribution width (RBC) [Ratio] 12.2 % 11.0 - 15.0 % [facility] Hematocrit (Bld) [Volume fraction] 41.7 % Low 42.0 - 54.0 % [facility] ([facility] [Mass/Vol] 13.8 g/dL Low 14.0 - 18.0 g/dL [facility] IMMATURE GRANULOCYTES ABS AUTO 0.03 [facility] Immature granulocytes/100 WBC (Bld) 0.4 % 0.0 - 0.5 % [facility] Interpretation and review of laboratory results Abnormal [facility] LYMPHOCYTES ABSOLUTE AUTO 2 [facility] Lymphocytes/100 WBC (Bld) 23.6 % 20.5 - 60.0 % [facility] MCH (RBC) [Entitic mass] 29.4 pg 25.9 - 34.0 pg [facility] MCHC (RBC) [Mass/Vol] 33.1 g/dL 29.9 - 35.2 g/dL [facility] MCV (RBC) [Entitic vol] 88.9 fL 80.0 - 94.0 fL [facility] MONOCYTES ABSOLUTE AUTO 0.6 [facility] Monocytes/100 WBC (Bld) 7.4 % 1.7 - 12.0 % [facility] NEUTROPHILS ABSOLUTE AUTO 5.5 [facility] Neutrophils/100 WBC (Bld) 66.1 % 43.0 - 75.0 % [facility] Platelet mean volume (Bld) [Entitic vol] 10.7 fL 9.5 - 13.5 fL [facility] # 0.2 [facility] PLT 220 [facility] RBC 4.69 Low [facility] WBC 8.3 [facility] XR ANKLE RT MIN 3 VWSon 07-23 [...] Mcgee MD on 08/15/2024 3:09 PM Normal [facility] XR FOOT RT MIN 3 VWSon [...] Mcgee MD on 08/15/2024 3:10 PM Normal [facility] ACETAMINOPHENon 10-12-2023 Acetaminophen [Mass/Vol] ug/mL Low 10.0-30.0 [facility] Comment on above: Result Comment: Refe rence ranges are for therapeutic limits. Performed By: #### C BCA, CMP, 65339-9, 3298-7, 4024-6, 5643-2, THYR #### [facility] ([id number]) [address] [place] [address] CBC AND AUTO DIFFon 10-12-19 24 ABSOLUTE BASOPHIL 0.1 X10E9/L Normal 0.0-0.2 [facility] Comment on above: Performed By: #### C BCA, CMP, 67138-1, 3298-7, 4024-6, 5643-2, THYR #### [facility] ([id number]) [address] [place] [address] ABSOLUTE NEUTROPHIL 9.5 X10E9/L High 1.5-6.6 [facility] Comment on above: Performed By: #### C BCA, CMP, 00175-8, 3298-7, 4024-6, 5643-2, THYR #### [facility] ([id number]) [address] [place] [address] Basophils/100 WBC (Bld) 0.6 % Normal [facility] Comment on above: Performed By: #### C BCA, CMP, 40998-9, 3298-7, 4024-6, 5643-2, THYR #### [facility] ([id number]) [address] [place] [address] Eosinophils (Bld) [#/Vol] 0.2 10*3/uL Normal 0.0-0.4 [facility] Comment on above: Performed By: #### C BCA, CMP, 15174-7, 3298-7, 4024-6, 5643-2, THYR #### [facility] ([id number]) [address] [place] [address] Eosinophils/100 WBC (Bld) 1.3 % Normal [facility] Comment on above: Performed By: #### C BCA, CMP, 19610-6, 3298-7, 4024-6, 5643-2, THYR #### [facility] ([id number]) [address] [place] [address] Erythrocyte distribution width (RBC) [Ratio] 13.9 % Normal 11.5-15.0 [facility] Comment on above: Performed By: #### C BCA, CMP, 23172-9, 3298-7, 4024-6, 5643-2, THYR #### [facility] ([id number]) [address] [place] [address] Hematocrit (Bld) [Volume fraction] 42.8 % Normal 39-49 [facility] Comment on above: Performed By: #### C BCA, CMP, 47000-1, 3298-7, 4024-6, 5643-2, THYR #### [facility] ([id number]) [address] [place] [address] Hemoglobin (Bld) [Mass/Vol] 14.4 g/dL Normal 13.0-17.0 [facility] Comment on above: Performed By: #### C BCA, CMP, , 3298-7, 4024-6, 5643-2, THYR #### [facility] ([id number]) [address] [place] [address] Lymphocytes (Bld) [#/Vol] 1.9 10*3/uL Normal 1.0-3.5 [facility] Comment on above: Performed By: #### C BCA, CMP, 37067-9, 3298-7, 4024-6, 5643-2, THYR #### [facility] ([id number]) [address] [place] [address] Lymphocytes/100 WBC (Bld) 15.4 % Normal [facility] Comment on above: Performed By: #### C BCA, CMP, 89803-1, 3298-7, 4024-6, 5643-2, THYR #### [facility] ([id number]) [address] [place] [address] MCH (RBC) [Entitic mass] 29.2 pg Normal 27-34 [facility] Comment on above: Performed By: #### C BCA, CMP, 30573-5, 3298-7, 4024-6, 5643-2, THYR #### [facility] ([id number]) [address] [place] [address] MCHC (RBC) [Mass/Vol] 33.6 g/dL Normal 32-36 [facility] Comment on above: Performed By: #### C BCA, CMP, 63303-2, 3298-7, 4024-6, 5643-2, THYR #### [facility] ([id number]) [address] [place] [address] 38592 MCV (RBC) [Entitic vol] 87 fL Normal 80-100 [facility] Comment on above: Performed By: #### C BCA, CMP, 67654-0, 3298-7, 4024-6, 5643-2, THYR #### [facility] ([id number]) [address] [place] [address] Monocytes (Bld) [#/Vol] 0.5 10*3/uL Normal 0-0.9 [facility] Comment on above: Performed By: #### C BCA, CMP, 89519-0, 3298-7, 4024-6, 5643-2, THYR #### [facility] ([id number]) [address] [place] [address] Monocytes/100 WBC (Bld) 4.4 % Normal [facility] Comment on above: Performed By: #### C BCA, CMP, 62469-6, 3298-7, 4024-6, 5643-2, THYR #### [facility] ([id number]) [address] [place] [address]882 Neutrophils/100 WBC (Bld) 78.3 % Normal [facility] Comment on above: Performed By: #### C BCA, CMP, 23447-9, 3298-7, 4024-6, 5643-2, THYR #### [facility] ([id number]) [address] [place] [address] Platelet mean volume (Bld) [Entitic vol] 7.8 fL Normal 7-12 [facility] Comment on above: Performed By: #### C BCA, CMP, 29797-0, 3298-7, 4024-6, 5643-2, THYR #### [facility] ([id number]) [address] [place] [address] Platelets (Bld) [#/Vol] 233 10*3/uL Normal 150-450 [facility] Comment on above: Performed By: #### C BCA, CMP, 89875-6, 3298-7, 4024-6, 5643-2, THYR #### [facility] ([id number]) [address] [place] [address] RBC COUNT 4.93 X10E12/L Normal 4.10-5.70 [facility] Comment on above: Performed By: #### C BCA, CMP, 54473-3, 3298-7, 4024-6, 5643-2, THYR #### [facility] ([id number]) [address] [place] [address] WBC (Bld) [#/Vol] 12.1 10*3/uL High 4.0-11.0 [facility] Comment on above: Performed By: #### C BCA, CMP, 63615-4, 3298-7, 4024-6, 5643-2, THYR #### [facility] ([id number]) [address] [place] [address] COMPREHENSIVE METABOLIC PANE Romero 10-12-2023 Albumin [Mass/Vol] 3.5 g/dL Normal 3.2-5.3 [facility] Comment on above: Performed By: #### C BCA, CMP, 05514-2, 3298-7, 4024-6, 5643-2, THYR #### [facility] ([id number]) [address] [place] [address] 79006 ALP [Catalytic activity/Vol] 39 U/L Normal 39-130 [facility] Comment on above: Performed By: #### C BCA, CMP, 34505-5, 3298-7, 4024-6, 5643-2, THYR #### [facility] ([id number]) [address] [place] [address] 45826 ALT [Catalytic activity/Vol] 13 U/L Normal 0-40 [facility] Comment on above: Performed By: #### C BCA, CMP, 96938-3, 3298-7, 4024-6, 5643-2, THYR #### [facility] ([id number]) [address] [place] [address] 49324 Anion gap [Moles/Vol] 8 mmol/L Normal 5-15 [facility] Comment on above: Performed By: #### C BCA, CMP, 34773-8, 3298-7, 4024-6, 5643-2, THYR #### [facility] ([id number]) [address] [place] [address] 55531 AST [Catalytic activity/Vol] 21 U/L Normal 0-41 [facility] Comment on above: Performed By: #### C BCA, CMP, 00802-8, 3298-7, 4024-6, 5643-2, THYR #### [facility] ([id number]) [address] [place] [address] 36802 Bilirubin [Mass/Vol] 0.4 mg/dL Normal 0.3-1.2 [facility] Comment on above: Performed By: #### C BCA, CMP, 79853-0, 3298-7, 4024-6, 5643-2, THYR #### [facility] ([id number]) [address] [place] [address] Calcium [Mass/Vol] 8.1 mg/dL Low 8.5-10.5 [facility] Comment on above: Performed By: #### C BCA, CMP, 60057-8, 3298-7, 4024-6, 5643-2, THYR #### [facility] ([id number]) [address] [place] [address] Chloride [Moles/Vol] 111 mmol/L High 98-109 [facility] Comment on above: Performed By: #### C BCA, CMP, 00005-9, 3298-7, 4024-6, 5643-2, THYR #### [facility] ([id number]) [address] [place] [address] 91610 CO2 [Moles/Vol] 25 mmol/L Normal 22-32 [facility] Comment on above: Performed By: #### C BCA, CMP, 43710-8, 3298-7, 4024-6, 5643-2, THYR #### [facility] ([id number]) [address] [place] [address] 59183 Creatinine [Mass/Vol] 0.62 mg/dL Normal 0.60-1.30 [facility] Comment on above: Result Comment: METH OD TRACEABLE TO IDMS STANDARD Performed By: #### C BCA, CMP, 05719-5, 3298-7, 4024-6, 5643-2, THYR #### [facility] ([id number]) [address] [place] [address]2835 eGFR (CKD-EPI) NON-RACE DEPENDENT >90 Normal >59 [facility] Comment on above: Result Comment: Reported eGFR is based on the CKD-EPI 2020 equation that does not use a race coefficient. Performed By: #### C BCA, CMP, 18609-4, 3298-7, 4024-6, 5643-2, THYR #### [facility] ([id number]) [address] [place] [address] Glucose [Mass/Vol] 84 mg/dL Normal 65-99 [facility] Comment on above: Performed By: #### C BCA, CMP, 84667-9, 3298-7, 4024-6, 5643-2, THYR #### [facility] ([id number]) [address] [place] [address] 57370 Potassium [Moles/Vol] 3.8 mmol/L Normal 3.5-5.0 [facility] Comment on above: Performed By: #### C BCA, CMP, 26791-2, 3298-7, 4024-6, 5643-2, THYR #### [facility] ([id number]) [address] [place] [address] 21348 Protein [Mass/Vol] 5.5 g/dL Low 6.0-8.0 [facility] Comment on above: Performed By: #### C BCA, CMP, 69502-4, 3298-7, 4024-6, 5643-2, THYR #### [facility] ([id number]) [address] [place] [address] 26854 Sodium [Moles/Vol] 144 mmol/L Normal 134-146 [facility] Comment on above: Performed By: #### C BCA, CMP, 95853-8, 3298-7, 4024-6, 5643-2, THYR #### [facility] ([id number]) [address] [place] [address] 41799 Urea nitrogen [Mass/Vol] 11 mg/dL Normal 5-23 [facility] Comment on above: Performed By: #### C BCA, CMP, 93812-2, 3298-7, 4024-6, 5643-2, THYR #### [facility] ([id number]) [address] [place] [id number] DRUG SCREEN, URINEon 024 AMPHETAMINE/METHAMP Negative Normal NEG [facility] Comment on above: Result Comment: AMPH /METH screening cut off = 1000 ng/mL Performed By: #### D NASH #### [facility] ([id number]) [address] [place] [address] BARBITURATES Negative Normal NEG [facility] Comment on above: Result Comment: Deborah iturates screening cut off value = 200 ng/mL Performed By: #### D NASH #### [facility] ([id number]) [address] [place] [address] BENZODIAZEPINES Negative Normal NEG [facility] Comment on above: Result Comment: Juan F odiazepines screening cut off value = 200 ng/mL Performed By: #### D NASH #### [facility] ([id number]) [address] [place] [address] CANNABINOIDS Positive Abnormal NEG [facility] Comment on above: Result Comment: Conf irmation available upon request. Cannabinoids/THC screening cut off value = 50 ng/mL Performed By: #### D NASH #### [facility] ([id number]) [address] [place] [address] COCAINE METABOLITE Negative Normal NEG [facility] Comment on above: Result Comment: Coca ine screening cut off value = 300 ng/mL Performed By: #### D NASH #### [facility] ([id number]) [address] [place] [address] ECSTASY Negative Normal NEG [facility] Comment on above: Result Comment: Ecst asy screening cut off value = 500 ng/mL This report is intended for use in clinical monitoring or management of patients. Performed By: #### D NASH #### [facility] ([id number]) [address] [place] [address] METHADONE Negative Normal NEG [facility] Comment on above: Result Comment: Meth adone screening cut off value = 300 ng/mL. Performed By: #### D NASH #### [facility] ([id number]) [address] [place] [address] OPIATES Negative Normal NEG [facility] Comment on above: Result Comment: Opia dom screening cut off value = 300 ng/mL NOTE: This test is used for the detection of codeine, hydrocodone (>1000 ng/mL), morphine and hydromorphone (>900 ng/mL) in urine. Performed By: #### D NASH #### [facility] ([id number]) [address] [place] [address] OXYCODONE Negative Normal NEG [facility] Comment on above: Result Comment: Oxyc odone screening cut off value = 300 ng/mL NOTE: This test is used for the detection of oxycodone and oxymorphone in urine. Performed By: #### D NASH #### [facility] ([id number]) [address] [place] [address] PHENCYCLIDINE Negative Normal NEG [facility] Comment on above: Result Comment: Phen cyclidine screening cut off value = 25 ng/mL Performed By: #### D NASH #### [facility] ([id number]) [address] [place] [address] 35494 Ethanol [Mass/Vol]on 024 ETHANOL 0.17 g/dL High 0.00-0.08 [facility] Comment on above: Result Comment: This report is intended for use in clinical monitoring or management of patients. Performed By: #### C BCA, CMP, 94575-2, 3298-7, 4024-6, 5643-2, THYR #### [facility] ([id number]) [address] [place] [address] MAGNESIUMon 10-12-2023 Magnesium [Mass/Vol] 1.8 mg/dL Normal 1.8-2.6 [facility] Comment on above: Performed By: #### C BCA, CMP, 26210-5, 3298-7, 4024-6, 5643-2, THYR #### [facility] ([id number]) [address] [place] [address] 16711 Salicylates [Mass/Vol]on SALICYLATE <2.5 Normal 2.0-25.0 [facility] Comment on above: Result Comment: Refe rence ranges are for therapeutic limits. Performed By: #### C BCA, CMP, 05570-6, 3298-7, 4024-6, 5643-2, THYR #### [facility] ([id number]) [address] [place] [address]33 THYROID PROFILEon 10-12-2023 Free T4 [Mass/Vol] 0.97 ng/dL Normal 0.61-1.60 [facility] Comment on above: Performed By: #### C BCA, CMP, 39595-1, 3298-7, 4024-6, 5643-2, THYR #### [facility] ([id number]) [address] [place] [address] 04723 TSH 1.12 uIU/mL Normal 0.49-4.67 [facility] Comment on above: Performed By: #### C BCA, CMP, 17298-8, 3298-7, 4024-6, 5643-2, THYR #### [facility] ([id number]) [address] [place] [address]75[address] URINALYSISon 10-12-2023 Bilirubin Ql (U) Negative Normal NEG [facility] Comment on above: Performed By: #### U A #### [facility] ([id number]) [address] [place] [address] 49[address] BLOOD/HGB Negative Normal NEG [facility] Comment on above: Performed By: #### U A #### [facility] ([id number]) [address] [place] [address] Color (U) YELLOW Normal YELLOW [facility] Comment on above: Performed By: #### U A #### [facility] ([id number]) [address] [place] [address] Glucose Ql (U) Negative Normal NEG [facility] Comment on above: Performed By: #### U A #### [facility] ([id number]) [address] [place] [address] Ketones Ql (U) Trace Abnormal NEG [facility] Comment on above: Performed By: #### U A #### [facility] ([id number]) [address] [place] [address]335 Leukocyte esterase Test strip Ql (U) Negative Normal NEG [facility] Comment on above: Performed By: #### U A #### [facility] ([id number]) [address] [place] [address] Nitrite Ql (U) Negative Normal NEG [facility] Comment on above: Performed By: #### U A #### [facility] ([id number]) [address] [place] [address] pH (U) 7.0 [pH] Normal 5.0-8.5 [facility] Comment on above: Performed By: #### U A #### [facility] ([id number]) [facility] [place] [address] Protein Ql (U) Negative Normal NEG [facility] Comment on above: Performed By: #### U A #### [facility] ([id number]) [address] [place] [address] Specific gravity (U) [Rel density] 1.010 Normal 1.003-1.035 [facility] Comment on above: Performed By: #### U A #### [facility] ([id number]) [address] [place] [address] TURBIDITY CLEAR Normal CLEAR [facility] Comment on above: Performed By: #### U A #### [facility] ([id number]) [address] [place] [address] Urobilinogen Qn (U) 0.2 {Violet'U}/dL Normal <1.1 [facility] Comment on above: Performed By: #### U A #### [facility] ([id number]) [address] [place] [address] MR BRAIN WO CONTon 4 MR BRAIN [...] Mcgee MD on 09/22/2023 7:55 PM Normal [facility] Vital Signs Date Time Vital Sign Value Performing Clinician Guilhermei lity 10-17-2024 15:26-0500 Body height 167.6 cm Julia Arriaza NP Work Phone: [facility] 10-17-2024 15:26-0500 Body mass index (BMI) [Ratio] 31.46 kg/m2 Julia Arriaza PHYSICAL THERAPY NURSE Work Phone: [facility] 10-17-2024 15:26-0500 Body temperature 97.3 [degF] Julia Arriaza PHYSICAL THERAPY NURSE Work Phone: [facility] 10-17-2024 15:26-0500 Body weight 88.41 kg Julia Arriaza PHYSICAL THERAPY NURSE Work Phone: [facility] 10-17-2024 15:26-0500 Diastolic blood pressure 80 mm[Hg] Julia Arriaza PHYSICAL THERAPY NURSE Work Phone: [facility] 10-17-2024 15:26-0500 Heart rate 86 /min Julia Arriaza PHYSICAL THERAPY NURSE Work Phone: [facility] 10-17-2024 15:26-0500 Respiratory rate 16 /min Julia Arriaza PHYSICAL THERAPY NURSE Work Phone: [facility] 10-17-2024 15:26-0500 SaO2% (BldA) [Mass fraction] 98 % Julia Arriaza PHYSICAL THERAPY NURSE Work Phone: [facility] 10-17-2024 15:26-0500 Systolic blood pressure 136 mm[Hg] Julia Arriaza PHYSICAL THERAPY NURSE Work Phone: [facility] 2024 15:14-0500 Body height 167.6 cm Julia Arriaza PHYSICAL THERAPY NURSE Work Phone: [facility] 2024 15:14-0500 Body mass index (BMI) [Ratio] 31.76 kg/m2 Julia Arriaza PHYSICAL THERAPY NURSE Work Phone: [facility] 2024 15:14-0500 Body temperature 97.2 [degF] Julia Arriaza PHYSICAL THERAPY NURSE Work Phone: [facility] 2024 15:14-0500 Body weight 89.27 kg Julia Arriaza PHYSICAL THERAPY NURSE Work Phone: [facility] 2024 15:14-0500 Diastolic blood pressure 78 mm[Hg] Julia Varelazpatrick PHYSICAL THERAPY NURSE Work Phone: [facility] 2024 15:14-0500 Heart rate 71 /min Julia Bosepatrick PHYSICAL THERAPY NURSE Work Phone: [facility] 2024 15:14-0500 Respiratory rate 16 /min Julia Bosepatrick PHYSICAL THERAPY NURSE Work Phone: [facility] 2024 15:14-0500 SaO2% (BldA) [Mass fraction] 99 % Julia Bosepatrick PHYSICAL THERAPY NURSE Work Phone: [facility] 2024 15:14-0500 Systolic blood pressure 120 mm[Hg] Julia Varelazpatrick PHYSICAL THERAPY NURSE Work Phone: [facility] Healthcare Encounters Encounter Date Encounter Type Care Provider Facility Start: 10-17-2024 End: 10-17-2024 Office outpatient visit 10 minutes Julia Ortegatrick PHYSICAL THERAPY NURSE Work Phone: [facility] Comment on above: Laceration of left m iddle finger w/o foreign body with damage to nail, subsequent encounter (Primary Dx); Gastroesophageal reflux disease with esophagitis, unspecified whether hemorrhage Start: 10-17-2024 End: 10-17-2024 ambulatory JULIA VARELAZPATRICK Not Available Start: 10-17-2024 End: 10-17-2024 Bamboo flowsheet Julia Varelazpatrick PHYSICAL THERAPY NURSE Work Phone: [facility] Start: 10-17-2024 End: 10-17-2024 Bamboo flowsheet Julia Varelazpatrick PHYSICAL THERAPY NURSE Work Phone: [facility] Start: 10-17-2024 End: 10-17-2024 ambulatory Aurora Adams MD Facility: [facility] Start: 10-05-2024 End: 10-05-2024 Telephone encounter Jessica Edgar ERWIN [facility] Start: 10-03-2024 End: 10-03-2024 Clinisync Result Encounter Julia Nealk PHYSICAL THERAPY NURSE Work Phone: [facility] Unsolicited Start: 10-03-2024 End: 10-03-2024 Clinisync Result Encounter Julia Nealk PHYSICAL THERAPY NURSE Work Phone: [facility] Unsolicited Start: 09-05-2024 End: 09-05-2024 Orders Only Julia Ortegatrick PHYSICAL THERAPY NURSE Work Phone: [facility] Comment on above: Anemia, unspecified type (Primary Dx) Start: 09-03-2024 End: 09-03-2024 Clinisync Result Encounter Julia Nealk PHYSICAL THERAPY NURSE Work Phone: [facility] Unsolic[facility] Start: 09-03-2024 End: 09-03-2024 Clinisync Result Encounter Julia Nealk PHYSICAL THERAPY NURSE Work Phone: [facility] Unsolicited Start: 2024 End: 2024 Initial preventive medicine new patient 40-64yrs Julia Nealk PHYSICAL THERAPY NURSE Work Phone: [facility] Comment on above: Encounter for medica l examination to establish care (Primary Dx); Chronic obstructive pulmonary disease, unspecified COPD type (CMS/HCC); Gastroesophageal reflux disease with esophagitis, unspecified whether hemorrhage; Back pain of lumbosacral region with sciatica; Intermittent chest pain; Chronic fatigue Start: 2024 End: 2024 ambulatory JULIA ARRIAZA Not Available Start: 2024 End: 2024 Bamboo flowsheet Julia Arriaza PHYSICAL THERAPY NURSE Work Phone: [facility] Start: 2024 End: 2024 Bamboo flowsheet Julia Arriaza PHYSICAL THERAPY NURSE Work Phone: [facility] Start: 2024 End: 2024 Patient encounter status Julia Arriaza PHYSICAL THERAPY NURSE Work Phone: [facility] Start: 2024 End: 09-05-2024 Refill Julia Arriaza PHYSICAL THERAPY NURSE Work Phone: [facility] Comment on above: Gastroesophageal ref lux disease with esophagitis, unspecified whether hemorrhage Start: 08-15-2024 End: 08-15-2024 Emergency department patient visit NO PCP NO PCP [facility] Start: 02-10-2024 End: 02-10-2024 Emergency department patient visit NO PCP NO PCP [facility] Start: 02-10-2024 End: 02-10-2024 Emergency department patient visit [facility] Start: 01-29-2024 End: 01-29-2024 ambulatory RONDAAMI LIMON Not Available Start: 10-12-2023 End: 10-13-2023 Emergency department patient visit [facility] Start: 10-09-2023 End: 10-09-2023 ambulatory [facility] Start: 09-22-2023 End: 09-23-2023 ambulatory [facility] Start: 09-11-2023 End: 09-11-2023 ambulatory [facility] Procedures Date Procedure Procedure Detail Performing Clinician Start: 10-03-2024 [facility] Gina hermann Arriaza PHYSICAL THERAPY NURSE Work Phone: Start: 09-03-2024 ALL CBC WITH AUTO DIFF Julia Arriaza PHYSICAL THERAPY NURSE Work Phone: Plan of Treatment Date Care Activity Detail Author Start: 02-15-2025 End: 02-15-2025 Patient encounter procedure 02/15/2025 5:30 PM EDT Office Visit [facility] [address] [place] [place] [id number] Julia Arriaza, PHYSICAL THERAPY NURSE [address] [place] [address] [facility] Start: 10-17-2024 End: 10-17-2024 Patient encounter procedure [facility] Comment on above: Arrived Start: 09-05-2024 End: 09-05-2025 Cobalamin (Vitamin B12) [Mass/volume] in Serum or Plasma Vitamin B12 Lab Routine Anemia, unspecified type Expected: 09/05/2024 (Approximate), Expires: 09/05/2025 [facility] Work Phone: Comment on above: Expected: 09/05/2024 (Approximate), Expires: 09/05/2025 Start: 09-05-2024 End: 09-05-2025 Ferritin [Mass/volume] in Serum or Plasma Ferritin Lab Routine Anemia, unspecified type Expected: 09/05/2024 (Approximate), Expires: 09/05/2025 [facility] Comment on above: Expected: 09/05/2024 (Approximate), Expires: 09/05/2025 Start: 09-05-2024 End: 09-05-2025 Iron + transferrin + TIBC Iron + transferrin + TIBC Lab Routine Anemia, unspecified type Expected: 09/05/2024 (Approximate), Expires: 09/05/2025 [facility] Comment on above: Expected: 09/05/2024 (Approximate), Expires: 09/05/2025 Start: 2024 End: 2024 Patient encounter procedure 2024 3:30 PM EST Office Visit [facility] [address] [place] [address] Julia Arriaza NP [address] [place] [address] Arrived [facility] Comment on above: Arrived Start: 2024 End: 2025 25-hydroxyvitamin D3 [Mass/volume] in Serum or Plasma Vitamin D 25 hydroxy Lab Routine Chronic fatigue Expected: 2024 (Approximate), Expires: 2025 [facility] Comment on above: Expected: 2024 (Approximate), Expires: 2025 Start: 2024 End: 2025 CBC W Auto Differential panel - Blood CBC and differential Lab Routine Encounter for medical examination to establish care Expected: 2024 (Approximate), Expires: 2025 [facility] Comment on above: Expected: 2024 (Approximate), Expires: 2025 Start: 2024 End: 2025 Cobalamin (Vitamin B12) [Mass/volume] in Serum or Plasma Vitamin B12 Lab Routine Chronic fatigue Expected: 2024 (Approximate), Expires: 2025 [facility] Comment on above: Expected: 2024 (Approximate), Expires: 2025 Start: 2024 End: 2025 Comprehensive metabolic 2000 panel - Serum or Plasma Comprehensive metabolic panel Lab Routine Encounter for medical examination to establish care Expected: 2024 (Approximate), Expires: 2025 [facility] Comment on above: Expected: 2024 (Approximate), Expires: 2025 Start: 2024 End: 2025 ECG 12 lead ECG 12 lead ECG Routine Intermittent chest pain Expected: 2024 (Approximate), Expires: 2025 [facility] Comment on above: Expected: 2024 (Approximate), Expires: 2025 Start: 2024 End: 2025 Ferritin [Mass/volume] in Serum or Plasma Ferritin Lab Routine Chronic fatigue Expected: 2024 (Approximate), Expires: 2025 [facility] Comment on above: Expected: 2024 (Approximate), Expires: 2025 Start: 2024 End: 2025 Hemoglobin A1c/Hemoglobin.total in Blood Hemoglobin A1c Lab Routine Encounter for medical examination to establish care Expected: 2024 (Approximate), Expires: 2025 [facility] Comment on above: Expected: 2024 (Approximate), Expires: 2025 Start: 2024 End: 2025 Iron + transferrin + TIBC Iron + transferrin + TIBC Lab Routine Chronic fatigue Expected: 2024 (Approximate), Expires: 2025 [facility] Comment on above: Expected: 2024 (Approximate), Expires: 2025 Start: 2024 End: 2025 Lipid 1996 panel - Serum or Plasma Lipid panel Lab Routine Encounter for medical examination to establish care Expected: 2024 (Approximate), Expires: 2025 [facility] Comment on above: Expected: 2024 (Approximate), Expires: 2025 Start: 2024 End: 2025 TSH W/REFLEX TO FT4 TSH W/REFLEX TO FT4 Lab Routine Encounter for medical examination to establish care Expected: 2024 (Approximate), Expires: 2025 [facility] Work Phone: Comment on above: Expected: 2024 (Approximate), Expires: 2025 Start: 2024 End: 2025 XR Lumbar spine 4 Views XR LUMBAR SPINE AP/LAT/FLEX/EXT/OBLIQUE S Imaging Routine Back pain of lumbosacral region with sciatica Expected: 2024, Expires: 2025 [facility] Comment on above: Expected: 2024 , Expires: 2025 Start: 05-22-2024 Influenza vaccination Influenza Vacc ine (#1) [facility] Start: 1975 Screening for malign ant neoplasm of colon [facility] Payers Date Payer Category Payer Private Health Insurance [id number] 2024 Private Health Insurance [id number] 2024 Medicaid [id number] 2024 Worker's Compensation [id number] 2022 Medicaid [id number] 2021 Unknown [id number] 1973 Unknown [id number] 2.16.84 [id number] 1973 Unknown [id number] 2.16.84 [id number] 1973 Unknown [id number] 2.16.84 [id number] 1973 Unknown [id number] 2.16.84 [id number] 1973 Unknown [id number] 2.16.8 [id number] 1973 Unknown [id number] 2.16.8 [id number] 1973 Unknown [id number] 2.16.8 [id number] 1973 Unknown [id number] 2.16.84 [id number] 1973 Unknown [id number] 2.16.84 [id number] 1973 Unknown [id number] 2.16.84 [id number] 1973 Unknown [id number] 2.16. 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 [facility] Start: 1975 Sex assigned at Not on file [facility] Start: 2024 End: 10-17-2024 Gender identity Not on file [facility] Start: 2024 Tobacco smoking status NHIS Ex-smoke r [facility] History of tobacco use Current smoker [facility] History of tobacco use Cigarette Smoker [facility] Start: 2024 Tobacco use and exposure Smoke less tobacco non-user [facility] Start: 2024 End: 10-17-2024 Alcoholic beverage intake Ex-drinker (finding) [facility] Start: 2024 End: 10-17-2024 History of Social function [facility] Start: 2024 Education 14 [facility] How often do you nee d to have someone help you when you read instructions, pamphlets, or other written material from your doctor or pharmacy [SILS] Rarely [facility] Do you belong to any clubs or organizations such as faith groups, unions, fraternal or athletic groups, or school groups? No [facility] Are you now , , , , never or living with a partner? [facility] How often to you hav e a drink containing alcohol? Monthly or less [facility] How hard is it for y ou to pay for the very basics like food, housing, medical care, and heating Very hard [facility] Do you feel stress - tense, restless, nervous, or anxious, or unable to sleep at night because your mind is troubled all the time - these days [OSQ] Only a little [facility] (I/We) worried wheth er (my/our) food would run out before (I/we) got money to buy more. Sometimes true [facility] In the past 12 month s, was there a time when you were not able to pay the mortgage or rent on time? Yes [facility] Clinical Notes 2024 to 10-17-2024 Julia Arriaza, EMMANUEL - 10/17/2024 4:09 PM Marychuy Arriaza, EMMANUEL - 10/17/2024 3:30 PM ESTPatient InstructionsTelephone Encounter - Jessica Hernández MA - 10/05/2024 3:14 PM ESTPatient Instructions Note Date & Type Note Facility 10-17-2024 History of Presen t illness Narrative Associated Problem(s): Laceration of left middle finger w/o foreign body with damage to nail, subsequent encounter Was seen in ER on 10/04/2024 for laceration to L index finger. Was cutting foam with band saw and cut finger. ER placed 2 sutures, ordered Kelfex 500mg TID X 10 days- and provided Tetanus shot. Here today for suture removal. 13 days in. 2 sutures removed today in office. Edges well approximated. Area Clean and dry. Images from the original note were not included. Subjective Patient ID: Gonzalo Drummond is a 49 y.o. male who presents for Suture / Staple Removal. HPI Was seen in ER on 10/04/2024 for laceration to L index finger. Was cutting foam with band saw and cut finger. ER placed 2 sutures, ordered Kelfex 500mg TID X 10 days- and provided Tetanus shot. Here today for suture removal. 13 days in. 2 sutures removed today in office. Edges well approximated. Area Clean and dry. Review of Systems Constitutional: Negative for activity change, appetite change, chills, diaphoresis, fatigue, fever and unexpected weight change. HENT: Negative for congestion, ear pain, rhinorrhea, sinus pressure, sinus pain, sneezing, sore throat, trouble swallowing and voice change. Eyes: Negative for visual disturbance. Respiratory: Negative for cough, chest tightness, shortness of breath and wheezing. Cardiovascular: Negative for chest pain, palpitations and leg swelling. Gastrointestinal: Negative for abdominal distention, abdominal pain, blood in stool, constipation, diarrhea and vomiting. Genitourinary: Negative for decreased urine volume, dysuria, flank pain, frequency, hematuria and urgency. Musculoskeletal: Negative for arthralgias, gait problem, joint swelling [...] sounds are normal. Palpations: Abdomen is soft. Skin: Capillary Refill: Capillary refill takes less than 2 seconds. Findings: Wound present. Comments: Edges well approximated. Area Clean and dry. Neurological: Mental Status: He is alert and oriented to person, place, and time. Assessment/Plan Problem List Items Addressed This Visit Gastroesophageal reflux disease with esophagitis (Chronic) Relevant Medications omeprazole (PriLOSEC) [address] capsule Laceration of left middle finger w/o foreign body with damage to nail, subsequent encounter - Primary Was seen in ER on 10/04/2024 for laceration to L index finger. Was cutting foam with band saw and cut finger. ER placed 2 sutures, ordered Kelfex 500mg TID X 10 days- and provided Tetanus shot. Here today for suture removal. 13 days in. 2 sutures removed today in office. Edges well approximated. Area Clean and dry. documented in this encounter [facility] 10-17-2024 Instructions Julia Arriaza NP - 10/17/2024 3:30 PM EST Finish antibiotics as directed. Keep wound clean and dry. Any redness/swelling/fever/chills/drain age or signs/ symptoms of infection GO TO ER! documented in this encounter [facility] 10-05-2024 Telephone encount er Note PM in [place] please. [facility] 10-05-2024 Miscellaneous Notes Formattin g of this note might be different from the original. PM in [place] please. ----- Message from [employer] sent at 10/05/2024 2:55 PM EST ----- Spinal xray shows spondylosis and facet arthropathy ( arthritis). My recommendation would be to see pain management if patient is agreeable to this? There is PM in [employer], or [employer]. Thank you documented in this encounter [facility] 10-05-2024 Telephone encount er Note ----- Message from [employer] sent at 10/05/2024 2:55 PM EST ----- Spinal xray shows spondylosis and facet arthropathy ( arthritis). My recommendation would be to see pain management if patient is agreeable to this? There is PM in [employer], or [employer]. Thank you [facility] 2024 History of Presen t illness Narrative [...] EC tablet COPD (chronic obstructive pulmonary disease) ([facility]/HCC) (Chronic) Relevant Medications tiotropium-olodaterol (Stiolto Respimat) 2.5-2.5 [...] ECG 12 lead documented in this encounter [facility] 2024 Instructions Julia Arriaza NP - 2024 [...] sleep per night. documented in this encounter [facility] Evaluation note Diagnosis Encounter for medical examination to establish care- Primary Chronic obstructive pulmonary disease, unspecified COPD type (CMS/HCC) Gastroesophageal reflux disease with esophagitis, unspecified whether hemorrhage Back pain of lumbosacral region with sciatica Intermittent chest pain Chronic fatigue Other malaise and fatigue documented [facility] Diagnosis Encounter for medical examination to establish care- Primary Chronic obstructive pulmonary disease, unspecified COPD type (CMS/HCC) Gastroesophageal reflux disease with esophagitis, unspecified whether hemorrhage Back pain of lumbosacral region with sciatica Intermittent chest pain Chronic fatigue Other malaise and fatigue Gastroesophageal reflux disease with esophagitis, unspecified whether hemorrhage [facility] Diagnosis Encounter for medical examination to establish care- Primary Chronic obstructive pulmonary disease, unspecified COPD type (CMS/HCC) Gastroesophageal reflux disease with esophagitis, unspecified whether hemorrhage Back pain of lumbosacral region with sciatica Intermittent chest pain Chronic fatigue Other malaise and fatigue Anemia, unspecified type- Primary [facility] Diagnosis Encounter for medical examination to establish care- Primary Chronic obstructive pulmonary disease, unspecified COPD type (CMS/HCC) Gastroesophageal reflux disease with esophagitis, unspecified whether hemorrhage Back pain of lumbosacral region with sciatica Intermittent chest pain Chronic fatigue Other malaise and fatigue Spondylosis- Primary Spondylosis of unspecified site without mention of myelopathy Facet arthropathy Spondylosis of unspecified site without mention of myelopathy [facility] Diagnosis Encounter for medical examination to establish care- Primary Chronic obstructive pulmonary disease, unspecified COPD type (CMS/HCC) Gastroesophageal reflux disease with esophagitis, unspecified whether hemorrhage Back pain of lumbosacral region with sciatica Intermittent chest pain Chronic fatigue Other malaise and fatigue Laceration of left middle finger w/o foreign body with damage to nail, subsequent encounter- Primary Gastroesophageal reflux disease with esophagitis, unspecified whether hemorrhage documented in this encounter [facility] Summary [...] section and content) DATE CREATED AUTHOR 10/11/2023 [facility] DATE CREATED AUTHOR AUTHOR'S ORGANIZ ATION 10/16/2023 [facility] DATE CREATED AUTHOR AUTHOR'S ORGANIZ ATION 08/18/2024 [facility] DATE CREATED AUTHOR AUTHOR'S ORGANIZ ATION 10/18/2024 [facility] EPIC DATE CREATED AUTHOR AUTHOR'S ORGANIZ ATION 10/23/2024 [facility] Care Teams (unrecognized sec tion and content) Car Restorer Relationship Specialty Start Date End Date Desmond Coffman MD [address] [place] [address] PCP - General Family Medicine 07/25/24 Julia Arriaza NP [address] [place] [address] Nurse Practitioner Family Medicine 07/25/24 Car Restorer Relationship Specialty Start Date End Date Desmond Coffman MD [address] [place] [address] PCP - General Family Medicine 07/25/24 Julia Arriaza NP [address] [place] [address] Nurse Practitioner Family Medicine 07/25/24 Car Restorer Relationship Specialty Start Date End Date Desmond Coffman MD [address] [place] [address] PCP - General Family Medicine 07/25/24 Julia Arriaza NP [address] [place] [address] Nurse Practitioner Family Medicine 07/25/24 Car Restorer Relationship Specialty Start Date End Date Desmond Coffman MD [address] [place] [address] PCP - General Family Medicine 07/25/24 Julia Arriaza NP [address] [place] [address] Nurse Practitioner Family Medicine 07/25/24 Car Restorer Relationship Specialty Start Date End Date Desmond Coffman MD [address] [place] [address] PCP - General Family Medicine 07/25/24 Julia Arriaza NP [address] [place] [address] Nurse Practitioner Family Medicine 07/25/24 Car Restorer Relationship Specialty Start Date End Date Desmond Coffman MD [address] [place] [address] PCP - General Family Medicine 07/25/24 Julia Arriaza NP [address] [place] [address] Nurse Practitioner Family Medicine 07/25/24 Car Restorer Relationship Specialty Start Date End Date Desmond Coffman MD [address] [place] [address] PCP - General [facility] 07/25/24 Julia Arriaza NP [address] [place] [address] Nurse Practitioner [facility] 07/25/24 Car Restorer Relationship Specialty Start Date End Date Desmond Coffman MD [address] [place] [address] PCP - General [facility] 07/25/24 Julia Arriaza NP [address] [place] [address] Nurse Practitioner [facility] 07/25/24 Reason for Visit (unrecogniz ed section and content) Reason Comments Establish Care Reason Comments Med Change Request Reason Comments Suture / Staple Removal FOR RECORDS PERTAINING TO PATIENTS WHO ARE [...] BE BASED ON THE PRIMARY CLINICAL RECORDS. [facility] [employer] [facility]. provides no warranty or guarantee of the accuracy or completeness of information in this document.
--- NOTE | 2024-11-07 10:37 | ED_ITS ---
HPI HPI - General Adult General Chief complaint: Upper Respiratory Infection Stated complaint: flu like symptoms Time Seen by Provider: 11/07/24 10:26 Source: patient Mode of arrival: walk-in Limitations: no limitations History of Present Illness HPI narrative: Patient is a 49-year-old male who is presenting to the ER with chief complaint of cough, congestion. Patient's girlfriend is a patient as well, patient girlfriend started with flulike symptoms yesterday. Patient states has been having cough, congestion, flulike symptoms since . Patient has had sick contacts at work. Patient is a vape smoking, longstanding history of cigarette smoke. Patient has a history of COPD. Patient's had no nausea or vomiting, patient has been using DayQuil, NyQuil, Mucinex. Patient has no PCP. Patient's symptoms are not improving since . All systems are negative except as noted/marked. All systems reviewed and otherwise negative. Nurses note and vital signs reviewed and patient is not hypoxic. General: The patient appears well and in no apparent distress. Patient is resting uncomfortably on cart. Patient is not toxic, lethargic, or listless. Patient is having intermittent dry coughing spells. Skin: Warm, dry, no pallor noted. There is no rash noted. No petechiae, purpura. Head: Normocephalic, atraumatic Eye: Normal conjunctiva, no drainage, EOMI. PERRL Ears, Nose, Mouth, and Throat: oral mucosa is moist. Patient has no unilateral swelling, no obvious signs of peritonsillar abscess, no posterior pharyngeal petechiae or exudate. Airways patent. Patient tolerating secretions well. No trismus. Patient has clear drainage noted to the posterior pharynx. Patient has mild cobblestoning to the posterior pharynx. No bilateral anterior or posterior cervical lymphadenopathy. Nares patent. Mouth without vesicles. Cardiovascular: Regular Rate and Rhythm, no murmur, gallop, rub Respiratory: Patient is in no distress, no accessory muscle use, lungs are bilateral upper respiratory congestion, no rales, crackles, no wheezing. Back: non-tender, no CVA tenderness bilaterally to percussion. No CT LS midline pain GI: no tenderness to palpation, no masses appreciated. No rebound, guarding, or rigidity noted. No distention Musculoskeletal: Patient has full range of motion of all of the extremities, no motor, sensory, or focal neurological deficits Neurological: A&O x4, normal speech Psychiatric: Cooperative Related Data Home Medications ?Medication ?Instructions ?Recorded ?Confirmed celecoxib 200 mg capsule (Celebrex) 200 mg PO BID 10/17/24 11/07/24 omeprazole 20 mg capsule,delayed 20 mg PO BID 10/17/24 11/07/24 release Previous Rx's ?Medication ?Instructions ?Recorded celecoxib 200 mg capsule (Celebrex) 200 mg PO BID #60 caps 10/17/24 albuterol sulfate 90 mcg/actuation 2 inh inhalation Q4H PRN shortness 11/07/24 aerosol inhaler of breath or wheezing 7 days #8.5 grams cecvmkjcljejulu-ihavzjvarrgutpb-EM 10 ml PO Q6H PRN cold symptoms 11/07/24 2 mg-30 mg-10 mg/5 mL oral syrup #200 mL (Bromfed DM) methylprednisolone 4 mg tablets in 4 mg PO DAILY 6 days #21 ea 11/07/24 a dose pack (Medrol (Rigoberto)) Allergies Allergy/AdvReac Type Severity Reaction Status Date / Time Iodinated Contrast Media Allergy Severe Anaphylaxis Verified 11/07/24 10:03 Opioid HPI Opioid Management Most Recent Opioid Data: Last Pain Scale 10 10/04/24 18:47 10/04/24 Ur Phencyclidine Scrn Negative (NEGATIVE) 01/22/24 17:05 05/0 12/12 [facility] Medical History (Updated 11/07/24 @ 11:50 by Anderson Nava MD) Acid reflux ?K21.9 - Gastro-esophageal reflux disease without esophagitis (ICD-10) IBS (irritable bowel syndrome) ?K58.9 - Irritable bowel syndrome, unspecified (ICD-10) Former cigarette smoker of unknown amount ?Z87.891 - Personal history of nicotine dependence (ICD-10) Vapes nicotine containing substance ?Z72.0 - Tobacco use (ICD-10) COPD (chronic obstructive pulmonary disease) ?J44.9 - Chronic obstructive pulmonary disease, unspecified (ICD-10) Surgical History (Updated 10/17/24 @ 13:43 by Kaylee Amaya) H/O umbilical hernia repair ?Z98.890 - Other specified postprocedural states (ICD-10) ?Z87.19 - Personal history of other diseases of the digestive system (ICD-10) History of hand surgery ?Z98.890 - Other specified postprocedural states (ICD-10) H/O wrist surgery ?Z98.890 - Other specified postprocedural states (ICD-10) Social History Little interest or pleasure in doing things: not at all Feeling down, depressed, or hopeless: not at all Exam Constitutional Vital Signs, click to edit/add: Last Vital Signs Temp 99.8 F 11/07/24 10:03 Pulse 79 11/07/24 12:00 Resp 18 11/07/24 12:00 BP 131/65 11/07/24 12:00 Pulse Ox 99 11/07/24 10:03 O2 Del Method Room Air 11/07/24 10:03 Course Vital Signs Vital signs: Vital Signs Temperature 99.8 F 11/07/24 10:03 Pulse Rate 75 11/07/24 10:03 Respiratory Rate 18 11/07/24 10:03 Blood Pressure 123/77 11/07/24 10:03 Pulse Oximetry 99 11/07/24 10:03 Oxygen Delivery Method Room Air 11/07/24 10:03 Temperature 99.8 F 11/07/24 10:03 Pulse Rate 79 11/07/24 12:00 Respiratory Rate 18 11/07/24 12:00 Blood Pressure 131/65 11/07/24 12:00 Pulse Oximetry 99 11/07/24 10:03 Oxygen Delivery Method Room Air 11/07/24 10:03 Medical Decision Making MDM Narrative Medical decision making narrative: Patient has left without treatment being completed. I discharged patient at 11:48 AM. I forgot to click the ready for discharge but and print the paperwork for nursing staff to discharge the patent. Patient was moved into the conference room because we had a sick critical patient coming in by ambulance and we put patient in room 11 where this patient was. I had realized that patient's name was still on the board, I asked nursing staff of patient was still here in the conference room and he had left. Patient never got his discharge paper. I ever got his prescriptions. Patient was called by Margoth GIL. Patient was upset that he was moved out of his room and upset that we were not able to talk to him and give him the prescriptions before he left. However patient left without treatment being completed, he eloped without telling anybody. We did tell patient he had 3 prescriptions to [facility], his discharge paperwork and work note are here at the hospital [facility] if he would like to come back. Patient eloped without treatment being completed. Lab Data Labs: Lab Results 11/07/24 Range/Units 10:08 Influenza Type A Ag Negative Influenza Type B Ag Negative SARS-CoV-2 Ag (CV2AG) Negative (NEGATIVE) Discharge Plan Discharge Stand Alone Forms: Work/School Release Chief Complaint: Upper Respiratory Infection Clinical Impression: Sinus congestion, Bronchitis, COPD (chronic obstructive pulmonary disease), Flu-like symptoms Patient Disposition: Home, Self-Care Time of Disposition Decision: 11:48 Condition: Fair Prescriptions / Home Meds: New methylprednisolone [Medrol (Rigoberto)] 4 mg tablets,dose pack 4 mg PO DAILY 6 Days Qty: 21 0RF Rx Instructions: as directed albuterol sulfate 90 mcg/actuation HFA aerosol inhaler 2 inh inhalation Q4H PRN (Reason: shortness of breath or wheezing) 7 Days Qty: 8.5 0RF vdzkhgrunkpzafg-mogbvknng-UM [Bromfed DM] 2-30-10 mg/5 mL syrup 10 ml PO Q6H PRN (Reason: cold symptoms) Qty: 200 0RF No Action omeprazole 20 mg capsule,delayed release(DR/EC) 20 mg PO BID celecoxib [Celebrex] 200 mg capsule 200 mg PO BID celecoxib [Celebrex] 200 mg capsule 200 mg PO BID Qty: 60 2RF Print Language: Singaporean Instructions: How to Use a Metered-Dose Inhaler (ED), Influenza (ED), Upper Respiratory Infection (ED), Acute Bronchitis (ED), COPD (Chronic Obstructive Pulmonary Disease) (ED), Cold Symptoms (ED) Additional Instructions: Use your inhaler 2 puffs every 4 hours while you are awake for the next 7 to 10 days. Use all medications listed below to help treat your symptoms. Influenza and COVID testing were negative. Increase fluids at home, Gatorade, Powerade, or water. Alternate using DayQuil, NyQuil, and Flonase. Add Mucinex as well as needed. Alternate Tylenol and Motrin every 4 hours to help with fever control, body aches or joint pain. Use lxbk-pbb-exmrxhg vitamin C, vitamin D3, and zinc to help fight infection and help with her immune system. Referrals: DENYS DE LEON [Primary Care Provider] - 1 week Discharge Date/Time: 11/07/24 13:59
[2024-11-07 10:42] LABS: Influenza Virus A Antigen Negative; Influenza Virus B Antigen Negative; Internal Control Within Normal Limits; SARS-CoV-2 Ag NEGATIVE (NEGATIVE)
[2024-11-07 12:00] VITALS: BP 131/65; PULSE 79
== END 2024-11-07 13:59 | disposition home or self-care (01) ==
PROVIDERS: Emergency Provider Emergency Medicine
DX: J44.9 Chronic obstructive pulmonary disease, unspecified (principal); R09.81 Nasal congestion; F17.290 Nicotine dependence, other tobacco product, uncomplicated; F17.210 Nicotine dependence, cigarettes, uncomplicated; R05.9 Cough, unspecified
CPT/HCPCS: 71046; 87804; 87811; 99284